=== PATIENT | female | born 1970 | race Caucasian/White ===

== ENCOUNTER 2020-08-22 11:28 | Outpatient (REF) | payer OTHER, SELFPAY ==
--- NOTE | 2020-08-22 | MM_ITS ---
EXAMINATION: MM SCREENING DIGITAL BREAST TOMOSYNTHESIS, BILATERAL CLINICAL INFORMATION: Screening. Asymptomatic. Benign right breast biopsy 2012, fibroadenoma. The lifetime risk of breast cancer based on the Tyrer-Cuzick Model is 12%. COMPARISON: Mammography: 08/14/2019, 06/20/2018, 05/24/2017, 05/11/2016, 04/17/2015, 02/10/2014 TECHNIQUE: Digital breast tomosynthesis is performed in both the craniocaudal and mediolateral oblique views along with computer-aided detection (CAD). Synthesized 2D images are generated from the tomosynthesis. Additional left MLO view is provided. FINDINGS: There are scattered areas of fibroglandular density (ACR BI-RADS breast composition Category b). There is a stable bilobed mass right breast upper outer quadrant approximately 2.1 x 1.4 cm with central biopsy clip marker and associated benign coarse calcifications consistent with the known fibroadenoma. The right breast shows no interval mass or architectural abnormality or developing density. Neither breast shows abnormal calcifications. The axilla and skin contours are unremarkable. The left breast has focal nodular asymmetric density posterior 12:30 position, more conspicuous when compared with prior exams. Patient will be recalled in order to further assess for possible developing density. MM/MM tomosynthesis screening BI IMPRESSION: 1. Left: Focal nodular asymmetric density posterior 12:30 o'clock position. 2. Right: No significant changes from prior studies. ASSESSMENT: BI-RADS 0: Incomplete - Need Additional Imaging Evaluation RECOMMENDATION: 1. Additional views of the left breast (3-D spot CC, 3-D spot ML). 2. Targeted ultrasound if warranted after review of the additional views. 3. Radiology department staff will contact the patient for additional imaging. This patient's information was entered into a reminder system with a target due date for their next mammogram.
== END 2020-08-22 11:29 | disposition home or self-care (01) ==
LOC: HO.MAMMO 11:28
PROVIDERS: PCP Internal Medicine; Visit Provider Internal Medicine
DX: Z12.31 Encounter for screening mammogram for malignant neoplasm of breast (principal)
CPT/HCPCS: 77063; 77067

== ENCOUNTER 2020-09-20 14:50 | Outpatient (REF) | payer OTHER, SELFPAY ==
--- NOTE | 2020-09-20 | MM_ITS ---
EXAMINATION: MM DIAGNOSTIC DIGITAL BREAST TOMOSYNTHESIS, LEFT US DIAGNOSTIC ULTRASOUND BREAST, LEFT CLINICAL INFORMATION: Recall from screening for subtle focal nodular asymmetric density posterior 12:30 o'clock position, more conspicuous when compared with prior exam. Assess for developing density. COMPARISON: Mammography: 08/22/2020, 08/14/2019, 08/20/2018 TECHNIQUE: Digital breast tomosynthesis is performed. 2D images are generated from the tomosynthesis. The following views are obtained: Spot CC, spot ML x2. Ultrasound left breast is targeted to the upper breast. Grayscale imaging and color Doppler are performed. Additional imaging axilla are also included. FINDINGS: There are scattered areas of fibroglandular density (ACR BI-RADS breast composition Category b). The additional views confirm subtle oval density with ill-defined margins. No spiculation or associated calcification. Ultrasound demonstrates a smooth macrolobulated nodule 12:00 position 7 cm from nipple measuring approximately 0.7 x 0.4 cm. There is no increased or decreased through transmission of sound. No associated color flow. Additional imaging left axilla unremarkable. Results are discussed with the patient at time of visit. Ultrasound appearance is reassuring, possibly benign lesions such as fibroadenoma or penetration. However, ultrasound-guided core sampling is recommended to confirm benignity and exclude malignancy. MM/MM tomosynthesis diagnostic BI IMPRESSION: Focal nodular asymmetric density posterior 12:00 left breast under 1 cm with smooth ultrasound correlate. ASSESSMENT: BI-RADS 4: Suspicious (subcategory 4A: Low suspicion for malignancy) RECOMMENDATION: Ultrasound-guided core biopsy This patient's information was entered into a reminder system with a target due date for their next mammogram.
== END 2020-09-20 14:51 | disposition home or self-care (01) ==
LOC: HO.MAMMO 14:50
PROVIDERS: PCP Internal Medicine; Visit Provider Internal Medicine
DX: R92.2 Inconclusive mammogram (principal)
CPT/HCPCS: 76642; 77062; 77066

== ENCOUNTER 2020-09-29 09:50 | Outpatient (REF) | payer OTHER, SELFPAY ==
--- NOTE | ~2020-09-29 | MM_ITS ---
EXAMINATION: DIGITAL POST-PROCEDURE MAMMOGRAPHY: Breast density: The tissue contains scattered areas of fibroglandular density. BI-RADS version 5, category B. There are no new mammographic findings demonstrated. The postprocedure 2-view direct digital mammogram reveals satisfactory positioning of the biopsy clip. The patient tolerated the procedure well and, after assuring adequate hemostasis, was discharged in good condition after reviewing postbiopsy breast care instructions. Final pathology results are pending. MM/MM diagnostic mammo unilat LT IMPRESSION: 1. No immediate complication from ultrasound-guided percutaneous biopsy left breast. 2. Ultrasound was used to localize and guide marker clip placement. 3. The 2-view direct digital postprocedure mammogram reveals satisfactory positioning of the biopsy clip. 4. Final pathology results are pending. A separate report with final recommendations will be issued once these results are made available.
--- NOTE | ~2020-09-29 | US_ITS ---
PROCEDURE: US GUIDED BREAST BIOPSY, LEFT CLINICAL INFORMATION: Solid lesion 12:00 position 7 cm from the nipple. COMPARISON: September 20, 2020 and studies dating back to May 24, 2017 PROCEDURAL DETAILS: The details of the procedure, as well as the risks, benefits, and alternatives to the procedure were explained to the patient in detail and all of her questions were answered, after which written informed consent was obtained. Site and side were confirmed. Prior to the procedure, sonography revealed a hypoechoic circumscribed lesion at the 12:00 position 7 cm from the nipple.. A time-out was performed, the lesion intended for biopsy was targeted, and the skin of the left breast was then prepped and draped in the usual sterile fashion. Using sonographic guidance, sterile technique, and 1% lidocaine without epinephrine for local anesthesia, multiple automated core biopsies were obtained through the targeted area with a 14G spring loaded Achieve core biopsy device. There was real-time confirmation of appropriate needle passage. Sampling was documented. At the completion of tissue sampling, a single coil-shaped metallic clip was deposited at the biopsy site. There was no evidence of immediate complication. SPECIMEN: An appropriate sample was obtained. DIGITAL POST-PROCEDURE MAMMOGRAPHY: Breast density: The tissue contains scattered areas of fibroglandular density. BI-RADS version 5, category B. There are no new mammographic findings demonstrated. The postprocedure 2-view direct digital mammogram reveals satisfactory positioning of the biopsy clip. The patient tolerated the procedure well and, after assuring adequate hemostasis, was discharged in good condition after reviewing postbiopsy breast care instructions. Final pathology results are pending. US/US breast ndl core biopsy LT IMPRESSION: 1. No immediate complication from ultrasound-guided percutaneous biopsy left breast. 2. Ultrasound was used to localize and guide marker clip placement. 3. The 2-view direct digital postprocedure mammogram reveals satisfactory positioning of the biopsy clip. 4. Final pathology results are pending. A separate report with final recommendations will be issued once these results are made available.
== END 2020-09-29 09:51 | disposition home or self-care (01) ==
LOC: HO.MAMMO 09:50
PROVIDERS: PCP Internal Medicine; Visit Provider Surgery
DX: R92.8 Other abnormal and inconclusive findings on diagnostic imaging of breast (principal)
CPT/HCPCS: 19083; 77065; 88305; A4648

== ENCOUNTER → 2020-10-04 11:24 | Outpatient (BNVA) | payer OTHER, SELFPAY | PROVIDERS: PCP Internal Medicine; Visit Provider Surgery ==

== ENCOUNTER 2020-12-01 17:14 | Outpatient (REF) | payer OTHER, SELFPAY ==
[2020-12-01 18:17] LABS: MANUAL DIFF FLAG NO
[2020-12-01 18:23] LABS: Basophils Absolute Auto 0.1 X10*3/uL (0.0-0.2); Basophils Percent Auto 0.8 % (0-2); Eosinophils Absolute Auto 0.1 X10*3/uL (0.0-0.4); Eosinophils Percent Auto 1.4 % (0-4); Hemoglobin 13.9 g/dl (12.0-16.0); Imm Gran Abs Auto 0.01 X10*3/uL (0.00-0.03); Imm Gran Pct Auto 0.1 % (0.0-0.4); Lymphocytes Absolute Auto 2.7 X10*3/uL (1.2-4.9); Lymphocytes Percent Auto 36.4 % (20-40); Mean Corpuscular HGB Conc 33.1 g/dl (31.0-35.0); Mean Corpuscular Hemoglobin 29.4 pg (27.0-33.0); Mean Corpuscular Volume 88.8 fL (80-98); Mean Platelet Volume 11.1 fL (9.4-12.3); Monocytes Absolute Auto 0.7 X10*3/uL (0.1-1.2); Monocytes Percent Auto 9.5 % (2-11); Neutrophils Absolute Auto 3.8 X10*3/uL (2.0-8.3); Neutrophils Percent Auto 51.8 % (45-73); Platelet Count 300 X10*3/uL (160-400); Red Blood Count 4.73 X10*6/uL (4.20-5.50); Red Cell Distribution Width 12.8 % (11.0-16.0); White Blood Count 7.3 X10*3/uL (4.8-10.8)
[2020-12-01 18:49] LABS: Alanine Aminotransferase 9 U/L (0-31); Alkaline Phosphatase 53 U/L (39-117); Anion Gap 14 (12-20); Aspartate Amino Transferase 13 U/L (5-31); Bilirubin Total 0.7 mg/dL (0.0-1.0); Blood Urea Nitrogen 10 mg/dL (9-16); Calcium 9.1 mg/dL (8.4-10.2); Carbon Dioxide 23 mmol/L (22-29); Chloride 105 mmol/L (96-108); Cholesterol 183 mg/dL; Estimated Glomerular Filt Rate > 60; Glucose Random 90 mg/dL (60-115); Potassium 4.1 mmol/L (3.3-5.1); Sodium 138 mmol/L (135-145); Total Protein 6.6 g/dL (6.5-8.0)
[2020-12-01 19:05] LABS: Free T4 (Free Thyroxine) 0.93 ng/dL (0.71-1.85); Thyroid Stimulating Hormone 1.32 uIU/mL (0.32-4.0)
== END 2020-12-01 17:15 | disposition home or self-care (01) ==
LOC: HO.LAB 17:14
PROVIDERS: PCP Internal Medicine; Visit Provider Internal Medicine
DX: R53.83 Other fatigue (principal); G47.00 Insomnia, unspecified; R51.9 Headache, unspecified; K21.9 Gastro-esophageal reflux disease without esophagitis
CPT/HCPCS: 36415; 80053; 82465; 84439; 84443; 85025

== ENCOUNTER → 2021-03-06 08:00 | Outpatient (BNVA) | payer OTHER, SELFPAY | PROVIDERS: PCP Internal Medicine; Visit Provider Advanced Practice Midwife ==

== ENCOUNTER 2021-10-13 07:31 | Outpatient (REF) | payer OTHER, SELFPAY ==
--- NOTE | ~2021-10-13 | MM_ITS ---
EXAMINATION: MM SCREENING DIGITAL BREAST TOMOSYNTHESIS, BILATERAL CLINICAL INFORMATION: Screening. Asymptomatic. Benign ultrasound-guided core biopsy left breast 09/29/2020 (fibroadenoma). Prior benign right breast biopsy 2011 (fibroadenoma). The lifetime risk of breast cancer based on the Tyrer-Cuzick Model is 8%. COMPARISON: Mammography: 09/29/2020, 09/20/2020, 08/22/2020, 08/14/2019, 06/20/2018; targeted left breast ultrasound 09/20/2020, ultrasound-guided core biopsy left breast 09/29/2020 TECHNIQUE: Digital breast tomosynthesis is performed in both the craniocaudal and mediolateral oblique views along with computer-aided detection (CAD). Synthesized 2D images are generated from the tomosynthesis. FINDINGS: There are scattered areas of fibroglandular density (ACR BI-RADS breast composition Category b). Parenchymal pattern is similar to prior exams. Right breast has macrolobulated mass with biopsy clip marker and coarse calcifications consistent with the known fibroadenoma anterior upper outer quadrant. Left breast has open coil biopsy clip marker overlying small nodule posterior 12:00 position also consistent with known fibroadenoma. Neither breast shows interval mass or developing density or architectural abnormality. There are no abnormal calcifications. The axilla and skin contours are unremarkable. No significant changes. MM/MM tomosynthesis screening BI IMPRESSION: No mammographic evidence of malignancy. ASSESSMENT: BI-RADS 2: Benign RECOMMENDATION: Routine annual mammography screening. This patient's information was entered into a reminder system with a target due date for their next mammogram.
== END 2021-10-13 07:32 | disposition home or self-care (01) ==
LOC: HO.MAMMO 07:31
PROVIDERS: PCP Internal Medicine; Visit Provider Internal Medicine
DX: Z12.31 Encounter for screening mammogram for malignant neoplasm of breast (principal)
CPT/HCPCS: 77063; 77067

== ENCOUNTER 2021-10-17 16:21 | Outpatient (REF) | payer OTHER, SELFPAY ==
[2021-10-17 17:12] LABS: MANUAL DIFF FLAG NO
[2021-10-17 17:26] LABS: Basophils Absolute Auto 0.1 X10*3/uL (0.0-0.2); Basophils Percent Auto 0.9 % (0-2); Eosinophils Absolute Auto 0.2 X10*3/uL (0.0-0.4); Eosinophils Percent Auto 2.8 % (0-4); Hematocrit 42.5 % (37.0-47.0); Imm Gran Abs Auto 0.02 X10*3/uL (0.00-0.03); Imm Gran Pct Auto 0.3 % (0.0-0.4); Lymphocytes Absolute Auto 2.4 X10*3/uL (1.2-4.9); Lymphocytes Percent Auto 35.6 % (20-40); Mean Corpuscular HGB Conc 32.9 g/dl (31.0-35.0); Mean Corpuscular Hemoglobin 29.5 pg (27.0-33.0); Mean Corpuscular Volume 89.7 fL (80.0-98.0); Mean Platelet Volume 10.6 fL (9.4-12.3); Monocytes Absolute Auto 0.7 X10*3/uL (0.1-1.2); Monocytes Percent Auto 9.9 % (2-11); Neutrophils Absolute Auto 3.4 x10*3/uL (2.0-8.3); Neutrophils Percent Auto 50.5 % (45-73); Platelet Count 275 X10*3/uL (160-400); Red Blood Count 4.74 X10*6/uL (4.20-5.50); Red Cell Distribution Width 13.1 % (11.0-16.0); White Blood Count 6.7 X10*3/uL (4.8-10.8)
[2021-10-17 17:40] LABS: Alanine Aminotransferase 6 U/L (0-31); Alkaline Phosphatase 52 U/L (39-117); Anion Gap 14 (12-20); Aspartate Amino Transferase 11 U/L (5-31); Bilirubin Total 0.4 mg/dL (0.0-1.0); Blood Urea Nitrogen 9 mg/dL (9-16); Calcium 8.8 mg/dL (8.4-10.2); Carbon Dioxide 23 mmol/L (22-29); Chloride 105 mmol/L (96-108); Estimated Glomerular Filt Rate > 60; Glucose Random 94 mg/dL (60-115); Potassium 4.5 mmol/L (3.3-5.1); Sodium 137 mmol/L (135-145); Total Protein 6.6 g/dL (6.5-8.0)
[2021-10-17 18:04] LABS: Free T4 (Free Thyroxine) 0.93 ng/dL (0.71-1.85); Thyroid Stimulating Hormone 1.51 uIU/mL (0.32-4.0); Vitamin D 25-OH Total 32.1 ng/mL (>30)
[2021-10-17 18:10] LABS: Vitamin B12 403 pg/mL (200-900)
[2021-10-18 10:06] LABS: Thyroid Peroxidase Antibodies <1 IU/mL (<9)
== END 2021-10-17 16:22 | disposition home or self-care (01) ==
LOC: HO.LAB 16:21
PROVIDERS: PCP Internal Medicine; Visit Provider Internal Medicine
DX: R53.83 Other fatigue (principal); K21.9 Gastro-esophageal reflux disease without esophagitis; R63.5 Abnormal weight gain; E01.0 Iodine-deficiency related diffuse (endemic) goiter
CPT/HCPCS: 36415; 80053; 82306; 82607; 84439; 84443; 85025; 86376

== ENCOUNTER 2021-10-29 13:47 | Outpatient (REF) | payer OTHER, SELFPAY ==
--- NOTE | ~2021-10-29 | US_ITS ---
EXAMINATION: US THYROID CLINICAL INFORMATION: Enlarged thyroid COMPARISON: None TECHNIQUE: Linear transducer grayscale and color Doppler examination with attention to the region of the thyroid. FINDINGS: SIZE: Measurements of the thyroid lobes and nodules are given in sagittal, anteroposterior and transverse dimensions respectively. Right Thyroid Lobe: 5.3 x 1.9 x 1.9 cm, volume 10.0 mL. Parenchyma: The gland echotexture is heterogeneous. Thyroid vascularity is increased. Left Thyroid Lobe: 5.1 x 1.6 x 1.6 cm, volume 6.8 mL. Parenchyma: The gland echotexture is heterogeneous. Thyroid vascularity is increased. Isthmus: 0.3 cm in maximum AP dimension. Estimated total number of nodules greater than or equal to 1 cm: 3. Vp Product nodules are described as follows: 1. Location: Right upper. Size: 2.9 x 1.7 x 1.6 cm, volume 4.17 mL. Nodule characteristics: Composition: Solid/almost completely solid (2). Echogenicity: Hypoechoic (2). Shape: Taller than wide (3). Margins: Lobulated (2). Echogenic Foci: None (0). ACR TI-RADS total points: 9 ACR TI-RADS category: 5 2. Location: Left upper. Size: 1.6 x 1.0 x 1.2 cm, volume 1.02 mL. Nodule characteristics: Composition: Solid (2). Echogenicity: Isoechoic (1). Shape: Not taller than wide (0). Margins: Irregular (2). Echogenic Foci: Punctate echogenic foci (3). ACR TI-RADS total points: 8 ACR TI-RADS category: 5 3. Location: Left lower pole. Size: 2.2 x 1.2 x 1.9 cm, volume 2.70 mL. Nodule characteristics: Composition: Mixed cystic and solid (1). Echogenicity: Cannot be determined (1). Shape: Not taller than wide (0). Margins: Extrathyroidal extension (3). Echogenic Foci: None (0). ACR TI-RADS total points: 5 ACR TI-RADS category: 4 4. Location: Right lower pole. Size: 0.6 x 0.4 x 0.5 cm, volume 0.05 mL. Nodule characteristics: Composition: Solid (2). Echogenicity: Hypoechoic (2). Shape: Not taller than wide (0). Margins: Smooth (0). Echogenic Foci: None (0). ACR TI-RADS total points: 4 ACR TI-RADS category: 4 NODES: No lymphadenopathy is seen in the tissue surrounding the thyroid gland. US/US thyroid IMPRESSION: Hypervascular heterogeneous thyroid gland. Slightly enlarged right lobe. Bilateral thyroid nodules. Nodules in the upper pole of the right lobe and upper and lower pole left lobe meet TI RADS criteria for fine-needle aspiration. ACR TI-RADS RECOMMENDATION REFERENCE: Ultrasound-guided fine-needle aspiration, followup ultrasound, no further follow up. * TR1 (0 point) and TR 2 (2 points): No FNA or follow up * TR3 (3 points): FNA if more than or equal to 2.5 cm in maximum dimension, followup ultrasound in 1, 3 and 5 years if 1.5 to 2.4 cm in maximum dimension. * TR4 (4-6 points): FNA if more than or equal to 1.5 cm in maximum dimension, followup ultrasound in 1, 2, 3 and 5 years if 1 to 1.4 cm in maximum dimension. * TR5 (more than or equal to 7 points): FNA if more than or equal to 1 cm in maximum dimension, followup ultrasound every year for 5 years if 0.5 to 0.9 cm in maximum dimension. * TR3, TR4 or TR5 nodules that are below the size threshold for follow up receive no follow up.
== END 2021-10-29 13:48 | disposition home or self-care (01) ==
LOC: HO.HMGCX 13:47
PROVIDERS: PCP Internal Medicine; Visit Provider Internal Medicine
DX: E04.9 Nontoxic goiter, unspecified (principal)
CPT/HCPCS: 76536

== ENCOUNTER 2022-06-25 09:02 | Outpatient (REF) | payer OTHER, SELFPAY | END 2022-06-25 09:03 | disposition home or self-care (01) | LOC: HO.LNP 09:02 | PROVIDERS: Visit Provider Advanced Practice Midwife | DX: Z13.89 Encounter for screening for other disorder (principal) ==

== ENCOUNTER 2022-06-25 09:23 | Outpatient (REF) | payer OTHER, SELFPAY ==
[2022-06-26 07:07] LABS: Follicle Stimulating Hormone 61.4 mIU/mL
[2022-06-26 13:09] LABS: BV Int Neg Control Negative (Negative); BV Int Pos Control Positive (Positive)
== END 2022-06-25 09:24 | disposition home or self-care (01) ==
LOC: HO.LAB 09:23
PROVIDERS: PCP Internal Medicine; Visit Provider Advanced Practice Midwife
DX: Z01.419 Encounter for gynecological examination (general) (routine) without abnormal findings (principal); R23.2 Flushing
CPT/HCPCS: 36415; 83001; 87480; 87510; 87660

== ENCOUNTER 2022-07-12 15:22 | Outpatient (REF) | payer OTHER, SELFPAY ==
--- NOTE | ~2022-07-12 | US_ITS ---
. EXAMINATION:US pelvic and transvaginal CLINICAL INFORMATION: Reason for Exam N92.6 - Irregular menstruation, unspecified COMPARISON: No priors available. LMP: 06/25/2022 FINDINGS: UTERUS: The uterus is anteverted. Size: 7.6 x 4.2 x 4.5 cm. Uterine mass: There is no uterine mass. Cervix: Grossly unremarkable. Endometrium: No ultrasound evidence of endometrial lesion. endometrial thickness measures 0.[address] properly positioned. ADNEXA: Normal Right ovary: Not visualized might have been obscured by bowel gas. Left ovary: Mildly complex cyst in the left ovary measure up to 4 cm, some internal echo probably debris, adjacent hypoechoic probably hemorrhagic cyst 1.3 x 1.2 x 0.9 cm. Doppler exam: Normal Doppler flow in the left ovary. FREE FLUID: Trace amount of free fluid. OTHER FINDINGS: None US/US pelvic and transvaginal IMPRESSION: 1. IUD in place properly positioned. 2. There are 2 complex probably hemorrhagic cysts in the left ovary the largest measure up to 4 cm. Follow-up recommended. Recommend follow-up ultrasound in 6 months. 3. Right ovary not visualized might have been obscured by bowel gas.
== END 2022-07-12 15:23 | disposition home or self-care (01) ==
LOC: HO.HMGCX 15:22
PROVIDERS: PCP Internal Medicine; Visit Provider Advanced Practice Midwife
DX: Z30.431 Encounter for routine checking of intrauterine contraceptive device (principal); N92.6 Irregular menstruation, unspecified
CPT/HCPCS: 76830; 76856

== ENCOUNTER 2022-07-15 07:59 | Outpatient (REF) | payer OTHER, SELFPAY ==
[2022-07-15 09:58] LABS: Hematocrit 42.6 % (37.0-47.0); Mean Corpuscular HGB Conc 32.9 g/dl (31.0-35.0); Mean Corpuscular Hemoglobin 29.7 pg (27.0-33.0); Mean Corpuscular Volume 90.3 fL (80.0-98.0); Mean Platelet Volume 10.7 fL (9.4-12.3); Platelet Count 298 X10*3/uL (160-400); Red Blood Count 4.72 X10*6/uL (4.20-5.50); Red Cell Distribution Width 12.9 % (11.0-16.0); White Blood Count 5.7 X10*3/uL (4.8-10.8)
[2022-07-15 10:31] LABS: Thyroid Stimulating Hormone 0.85 uIU/mL (0.32-4.0)
[2022-07-17 10:12] LABS: CA-125 8 U/mL (<35)
== END 2022-07-15 08:00 | disposition home or self-care (01) ==
LOC: HO.LAB 07:59
PROVIDERS: PCP Internal Medicine; Visit Provider Advanced Practice Midwife
DX: Z30.432 Encounter for removal of intrauterine contraceptive device (principal); N92.1 Excessive and frequent menstruation with irregular cycle; N83.299 Other ovarian cyst, unspecified side
CPT/HCPCS: 36415; 58301; 84443; 85027; 86304

== ENCOUNTER 2022-07-16 08:56 | Outpatient (REF) | payer OTHER, SELFPAY ==
[2022-07-16 10:46] LABS: C Reactive Protein 0.05 mg/dL (< or = 0.50)
[2022-07-16 12:53] LABS: Vitamin B12 369 pg/mL (200-900)
[2022-07-18 16:57] LABS: Immunoglobulin A 239 mg/dL (47-310)
[2022-07-19 13:01] LABS: Transglutaminase IgA <1.0 U/mL
== END 2022-07-16 08:57 | disposition home or self-care (01) ==
LOC: HO.LAB 08:56
PROVIDERS: PCP Internal Medicine; Visit Provider Internal Medicine
DX: Z30.432 Encounter for removal of intrauterine contraceptive device (principal); N93.9 Abnormal uterine and vaginal bleeding, unspecified; R19.7 Diarrhea, unspecified; R14.0 Abdominal distension (gaseous)
CPT/HCPCS: 36415; 58301; 81025; 82306; 82607; 82746; 82784; 86140; 86364

== ENCOUNTER 2022-07-22 09:03 | Outpatient (REF) | payer OTHER, SELFPAY ==
[2022-07-30 22:04] LABS: Calprotectin, Fecal 6 mcg/g
== END 2022-07-22 09:04 | disposition home or self-care (01) ==
LOC: HO.LNP 09:03
PROVIDERS: Visit Provider Internal Medicine
DX: R14.0 Abdominal distension (gaseous) (principal)
CPT/HCPCS: 83993; 87338

== ENCOUNTER 2022-07-30 14:31 | Outpatient (REF) | payer OTHER, SELFPAY ==
[2022-07-30 15:30] LABS: Influenza A PCR NEGATIVE (Negative); Influenza B PCR NEGATIVE (Negative); Resp Syncy Virus RNA Qual PCR NEGATIVE (Negative); SARS COV2 PCR INHOUSE POSITIVE (Negative)
== END 2022-07-30 14:32 | disposition home or self-care (01) ==
LOC: HO.LNP 14:31
PROVIDERS: Visit Provider Nurse Practitioner Family
DX: Z20.822 Contact with and (suspected) exposure to COVID-19 (principal); R09.89 Other specified symptoms and signs involving the circulatory and respiratory systems
CPT/HCPCS: 0241U

== ENCOUNTER 2022-08-07 09:24 | Outpatient (REF) | payer OTHER, SELFPAY | END 2022-08-07 09:25 | disposition home or self-care (01) | LOC: HO.LNP 09:24 | PROVIDERS: PCP Internal Medicine; Visit Provider Obstetrics & Gynecology | DX: Z32.02 Encounter for pregnancy test, result negative (principal); N93.9 Abnormal uterine and vaginal bleeding, unspecified | CPT/HCPCS: 58100; 81025; 88305 ==

== ENCOUNTER 2022-08-23 10:47 | Outpatient (REF) | payer OTHER, SELFPAY ==
--- NOTE | ~2022-08-23 | US_ITS ---
EXAMINATION: US PELVIS CLINICAL INFORMATION: Ovarian cyst. COMPARISON: Prior ultrasound just over one month ago on 07/12/2022. TECHNIQUE: Ultrasound of the pelvis is performed using both transabdominal and transvaginal transducers along with Doppler. Transvaginal imaging is performed due to inadequate visualization transabdominally. FINDINGS: UTERUS: The uterus is retroverted and measures 7.4 x 4.0 x 4.3 cm. The previously seen IUD which had been in the cervix has been removed. An IUD is not present at this time. The double wall endometrial thickness is 0.8 mm. The uterus is smooth in contour and has normal myometrial echogenicity. No visible fibroid. ADNEXA: Both ovaries are visualized. There is normal color flow to the adnexa. There is no ovarian torsion. There is no pelvic ascites or fluid collection. Right ovary measures 2.0 x 1.4 x 1.4 cm for a volume of 2.1 mL. Left ovary measures 3.6 x 3.0 x 3.6 cm for a volume of 20.4 mL which contains a 3.3 x 2.6 x 3.0 cm cyst with either a septation or a daughter cyst. Since the prior study, left ovarian cyst has decreased in size from the previous measurement of maximal dimension of 4.2 cm. US/US pelvic and transvaginal IMPRESSION: Left ovarian cyst has decreased in size. An additional follow up in 6 months is recommended.
== END 2022-08-23 10:48 | disposition home or self-care (01) ==
LOC: HO.US 10:47
PROVIDERS: Visit Provider Advanced Practice Midwife
DX: N83.299 Other ovarian cyst, unspecified side (principal)
CPT/HCPCS: 76830; 76856

== ENCOUNTER → 2022-08-28 08:28 | Outpatient (BNVA) | payer OTHER, SELFPAY | PROVIDERS: PCP Internal Medicine; Visit Provider Obstetrics & Gynecology | DX: N84.0 Polyp of corpus uteri (principal) ==

== ENCOUNTER 2022-09-04 08:58 | Outpatient (REF) | payer OTHER, SELFPAY ==
[2022-09-06 10:18] LABS: CA-125 7 U/mL (<35)
== END 2022-09-04 08:59 | disposition home or self-care (01) ==
LOC: HO.LAB 08:58
PROVIDERS: PCP Internal Medicine; Visit Provider Obstetrics & Gynecology
DX: N83.299 Other ovarian cyst, unspecified side (principal)
CPT/HCPCS: 36415; 86304

== ENCOUNTER 2022-10-19 07:36 | Outpatient (REF) | payer OTHER, SELFPAY ==
--- NOTE | ~2022-10-19 | MM_ITS ---
EXAMINATION: MM SCREENING DIGITAL BREAST TOMOSYNTHESIS, BILATERAL CLINICAL INFORMATION: Screening. Asymptomatic. Benign left biopsy 2020 (fibroadenoma). Benign right breast biopsy 2011 (fibroadenoma). The lifetime risk of breast cancer based on the Tyrer-Cuzick Model is 9%. COMPARISON: Mammography: 10/13/2021, 09/29/2020, 09/20/2020, 08/22/2020, 08/14/2019, 06/20/2018 TECHNIQUE: Digital breast tomosynthesis is performed in both the craniocaudal and mediolateral oblique views along with computer-aided detection (CAD). Synthesized 2D images are generated from the tomosynthesis. FINDINGS: There are scattered areas of fibroglandular density (ACR BI-RADS breast composition Category b). Breast tissue composition borders on heterogeneously dense. There is no significant mass or architectural abnormality. There is a dominant smooth circumscribed mass with calcification and biopsy clip marker corresponding to known fibroadenoma anterior upper outer right breast. Smaller fibroadenoma posterior 12:00 left breast with biopsy clip marker again noted. No abnormal calcifications. The axilla and skin contours are unremarkable. MM/MM tomosynthesis screening BI IMPRESSION: No significant changes from prior studies. ASSESSMENT: BI-RADS 2: Benign RECOMMENDATION: Routine annual mammography screening. This patient's information was entered into a reminder system with a target due date for their next mammogram.
== END 2022-10-19 07:37 | disposition home or self-care (01) ==
LOC: HO.MAMMO 07:36
PROVIDERS: Visit Provider Internal Medicine
DX: Z12.31 Encounter for screening mammogram for malignant neoplasm of breast (principal)
CPT/HCPCS: 77063; 77067

== ENCOUNTER 2022-11-04 15:19 | Outpatient (REF) | payer OTHER, SELFPAY ==
--- NOTE | ~2022-11-04 | US_ITS ---
EXAMINATION: US PELVIS CLINICAL INFORMATION: Ovarian cyst. LMP 10/29/2022. COMPARISON: Pelvic ultrasound 08/23/2022. TECHNIQUE: Ultrasound of the pelvis is performed using both transabdominal and transvaginal transducers along with Doppler. Transvaginal imaging is performed due to inadequate visualization transabdominally. FINDINGS: The uterus is retroverted measuring 6.7 x 3.4 x 4.2 cm. No focal uterine lesion. The endometrium measures 0.3 cm in thickness. The right ovary measures 1.7 x 2 x 1.5 cm (2.6 mL) disease. The left ovary measures 2.6 x 1.5 x 2 cm (4 mL). In the right ovary, there is a 1.3 x 1 x 1.1 cm complicated cyst with heterogeneous and lacelike debris but no definite associated vascularity, unsure if this correlates with one of the previously described complex cysts on the ultrasound from 07/12/2022, however is decreased in size. There is preserved flow to both ovaries on color Doppler at the moment of this examination. Small amount of free fluid in the cul-de-sac, likely physiologic. US/US pelvic and transvaginal IMPRESSION: There is a 1.3 cm complicated cyst in the left ovary with lacelike debris and no mural nodules, possibly related with a hemorrhagic cyst. It is uncertain if this represents one of the previously described complex cysts on the ultrasound from 07/12/2022, or most likely interval developing of a new hemorrhagic cyst. Recommend a follow-up ultrasound in 6-12 weeks to reassess.
== END 2022-11-04 15:20 | disposition home or self-care (01) ==
LOC: HO.HMGCX 15:19
PROVIDERS: PCP Internal Medicine; Visit Provider Obstetrics & Gynecology
DX: N83.299 Other ovarian cyst, unspecified side (principal)
CPT/HCPCS: 76830; 76856

== ENCOUNTER → 2022-11-13 15:38 | Outpatient (BNVA) | payer OTHER, SELFPAY | PROVIDERS: PCP Internal Medicine; Visit Provider Obstetrics & Gynecology | DX: Z13.89 Encounter for screening for other disorder (principal) ==

== ENCOUNTER 2022-12-03 15:45 | Outpatient (REF) | payer OTHER, SELFPAY ==
--- NOTE | ~2022-12-03 | MR_ITS ---
EXAMINATION: MRI PELVIS WITH AND WITHOUT CONTRAST CLINICAL INFORMATION: Reason for Exam N83.299 - Other ovarian cyst, unspecified side COMPARISON: Pelvic ultrasound 11/04/2022 TECHNIQUE: Multiple routine MRI sequences through the pelvis were obtained before and after the uneventful administration of 10 mL of Gadavist gadolinium-based IV contrast. FINDINGS: UTERUS: Retroverted uterus has a normal configuration. Endometrium is uniform and measures 0.4 cm in thickness. Junctional zone is normal in signal and thickness. No focal uterine mass seen. CERVIX: Unremarkable. VAGINA: Unremarkable. OVARIES: The ovaries are normal in size, 4:6 and 4:13. Simple unilocular 1.4 cm left ovarian cyst. KIDNEYS: Two normally positioned kidneys are seen. No hydronephrosis. BLADDER: Unremarkable. PELVIC FREE FLUID: Trace simple physiologic pelvic free fluid. LYMPH NODES: No pathologically enlarged lymph nodes. OSSEOUS STRUCTURES: No acute or suspicious osseous abnormalities. OTHER: Colonic diverticulosis without evidence of diverticulitis. MR/MR pelvis wo/w con IMPRESSION: A 1.4 cm simple unilocular left ovarian cyst, almost certainly benign. No follow-up imaging recommended.
== END 2022-12-03 15:46 | disposition home or self-care (01) ==
LOC: HO.MRI 15:45
PROVIDERS: PCP Internal Medicine; Visit Provider Obstetrics & Gynecology
DX: N83.299 Other ovarian cyst, unspecified side (principal)
CPT/HCPCS: 72197; A9585

== ENCOUNTER 2022-12-26 15:02 | Outpatient (REF) | payer OTHER, SELFPAY ==
--- NOTE | ~2022-12-26 | XR_ITS ---
EXAMINATION: XR CHEST CLINICAL INFORMATION: Chest pain, cough COMPARISON: None available. TECHNIQUE: 2 views of the chest were obtained. FINDINGS: No significant abnormality is noted involving the heart, lungs, mediastinum, bony thorax or soft tissues. XR/XR chest 2V IMPRESSION: Unremarkable chest examination.
[2022-12-26 17:34] LABS: Influenza A PCR NEGATIVE (Negative); Influenza B PCR NEGATIVE (Negative); Resp Syncy Virus RNA Qual PCR NEGATIVE (Negative); SARS COV2 PCR INHOUSE NEGATIVE (Negative)
== END 2022-12-26 15:03 | disposition home or self-care (01) ==
LOC: HO.XRAY 15:02
PROVIDERS: Absent Provider Internal Medicine; PCP Internal Medicine; Visit Provider Obstetrics & Gynecology
DX: Z20.822 Contact with and (suspected) exposure to COVID-19 (principal); R05.9 Cough, unspecified; R53.83 Other fatigue; N83.299 Other ovarian cyst, unspecified side
CPT/HCPCS: 0241U; 71046

== ENCOUNTER → 2023-01-10 15:47 | Outpatient (BNVA) | payer OTHER, SELFPAY | PROVIDERS: PCP Internal Medicine; Visit Provider Internal Medicine ==

== ENCOUNTER 2023-04-10 08:40 | Day surgery (SDC) | payer OTHER, SELFPAY ==
[2023-04-08 08:50] VITALS: BMI 23.9
--- NOTE | 2023-04-09 09:21 | HO.ANESPROP2 ---
Documented by User: Rere Fuentes NP 04/09/23 09:21 HPI - Anesthesia Eval Consult details Narrative: 52yo F for Colonoscopy PMFSH Active Problems Active Problems: All Active Problems (Updated 08/28/22 @ 09:16 by Mark Ashley MD) Fibroadenoma of left breast (Acute) Encounter for annual routine gynecological examination (Acute) Hot flashes (Acute) Abdominal bloating (Acute) Alternating constipation and diarrhea (Acute) Encounter for colorectal cancer screening (Acute) Encounter for removal of intrauterine contraceptive device (IUD) (Acute) Abnormal uterine bleeding (Acute) URI (upper respiratory infection) (Acute) COVID (Acute) Endometrial polyp (Acute) Complex ovarian cyst (Acute) Past Medical History Medical History Diverticulosis Migraine with aura Thyroid nodule Family History Family History Father History of melanoma Heart disease Paternal Grandmother History of colon cancer, Onset Age: 90 Mother Emphysema of lung Surgical History Surgical History History of cholecystectomy (~09/2012) History of left breast biopsy Social History Social History Household Members: None Housing: House Alcohol intake: current Patient Tobacco Use Status: Never used Tobacco Are you DNR?: No Advance Directives: No Advance Directives Information Provided: Yes Nutrition Risks: No Nutritional Risk FDLMP: 03/05/23 service: No Current occupational status: employed 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 orientation: Straight/Heterosexual Gender identity: Female Meds Allergies Allergy/AdvReac Type Severity Reaction Status Date / Time Sulfa (Sulfonamide Allergy Intermediate hives Verified 04/10/23 09:23 Antibiotics) sulfamethoxazole Allergy Intermediate HIVES Verified 04/10/23 09:23 [From BACTRIM] trimethoprim [From BACTRIM] Allergy Intermediate HIVES Verified 04/10/23 09:23 erythromycin base Allergy Unknown Unknown Verified 04/10/23 09:23 Seasonal Allergies Allergy Unknown Unknown Verified 04/10/23 09:23 codeine AdvReac Severe severe GI Verified 04/10/23 09:23 upset oxycodone [Percocet] AdvReac Intermediate Nausea Verified 04/10/23 09:23 Exam Exam Date and Time: April 09, 202321 Height,Weight and Vital Signs: Height 5 ft 3 in Weight 61.235 kg Assessment and Plan Assessment Anesthesia Assessment: Chart Reviewed Documented by User: Bacilio Cueto MD 04/10/23 09:54 PMFSH Past Medical History Medical History Diverticulosis Migraine with aura Thyroid nodule Family History Family History Father History of melanoma Heart disease Paternal Grandmother History of colon cancer, Onset Age: 90 Mother Emphysema of lung Family history of problems with anesthesia: No Surgical History Surgical History History of cholecystectomy (~09/2012) History of left breast biopsy History of Problems with Anesthesia: No Social History Social History Household Members: None Housing: House Alcohol intake: current Patient Tobacco Use Status: Never used Tobacco Are you DNR?: No Advance Directives: No Advance Directives Information Provided: Yes Nutrition Risks: No Nutritional Risk FDLMP: 03/05/23 service: No Current occupational status: employed 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 orientation: Straight/Heterosexual Gender identity: Female Meds Allergies Allergy/AdvReac Type Severity Reaction Status Date / Time Sulfa (Sulfonamide Allergy Intermediate hives Verified 04/10/23 09:23 Antibiotics) sulfamethoxazole Allergy Intermediate HIVES Verified 04/10/23 09:23 [From BACTRIM] trimethoprim [From BACTRIM] Allergy Intermediate HIVES Verified 04/10/23 09:23 erythromycin base Allergy Unknown Unknown Verified 04/10/23 09:23 Seasonal Allergies Allergy Unknown Unknown Verified 04/10/23 09:23 codeine AdvReac Severe severe GI Verified 04/10/23 09:23 upset oxycodone [Percocet] AdvReac Intermediate Nausea Verified 04/10/23 09:23 Exam Airway Mallampati Class: I TM Dist: >3cm Neck ROM: Full Loose/Missing/Broken Teeth: No Assessment and Plan Assessment Anesthesia Assessment: Anesthesia Plan Discussed Final Anesthetic Review Family History of Problems with Anesthesia: No History of Problems with Anesthesia: No NPO: Yes ASA Class: II Final Preanesthetic Review: No Changes in Pt Med Stat, Meds/Allgs Chart Reviewed, Consent Obtained/Reviewed and Anes Risks/Benef Reviewed Patient Risk: Low Anesthetic Plan Anesthetic Plan: MAC: Disposition: Standard PACU
[2023-04-10 09:07] LABS: UPreg QC Valid YES; Urine Pregnancy NEGATIVE (NEGATIVE)
[2023-04-10] MEDS: Lactated Ringers 1,000 ML 100 ML IVCONT (09:11)
[2023-04-10 09:19] VITALS: BP 120/72; PULSE 87; RESP 18; TEMP 36.6; O2SAT 100
--- NOTE | 2023-04-10 09:41 | MHC.SHP ---
Pre-Procedural Eval Section A Date of Service: 04/10/23 Section B Chief Complaint: screening Details of Present Illness: Medical History Diverticulosis Migraine with aura Thyroid nodule Surgical History History of cholecystectomy (~09/2012) History of left breast biopsy Present Medications: see Short Stay Collaborative assessment Allergies: Allergies Allergy/AdvReac Type Severity Reaction Status Date / Time Sulfa (Sulfonamide Allergy Intermediate hives Verified 04/10/23 09:23 Antibiotics) sulfamethoxazole Allergy Intermediate HIVES Verified 04/10/23 09:23 [From BACTRIM] trimethoprim [From BACTRIM] Allergy Intermediate HIVES Verified 04/10/23 09:23 erythromycin base Allergy Unknown Unknown Verified 04/10/23 09:23 Seasonal Allergies Allergy Unknown Unknown Verified 04/10/23 09:23 codeine AdvReac Severe severe GI Verified 04/10/23 09:23 upset oxycodone [Percocet] AdvReac Intermediate Nausea Verified 04/10/23 09:23 Review of Systems Review of Systems Comment: 10 point ROS negative Exam Exam Comment: Gen appear: No acute distress HEENT: no icterus Chest: No overt resp distress Abd: soft, nontender, nondistended Psych: Stable affect, answering questions appropriately Neuro: A/Ox3 noted to move all extremities spontaneously Ext: no peripheral edema Plan Diagnosis/Plan: Unchanged I have reviewed the history and physical and performed a pertinent physical examination on my patient. No changes have occurred unless specified. Time Spent With Patient Time: Total time managing care of this patient today ____ minutes.
--- NOTE | 2023-04-10 09:49 | P.OP_ITS ---
Operative Note Operative Note Date of Service: 04/10/23 Narrative: Procedure: Colonoscopy Indication: Screening Endoscopist: Anne De Anda MD Anesthesia Provider: Dr Bcailio Cueto Anesthesia type: MAC Instrument: Olympus [id number] Consent: Indication, risks vs benefits, and alternatives were discussed with the patient who gave written informed consent to proceed. EKG, pulse, pulse oximetry and blood pressure were monitored throughout the procedure. Please see anesthesia flowsheet. Procedure: The patient was brought to the procedure room and placed in the left lateral decubitus position. IV medications were administered by the anesthesia provider in attendance. A digital rectal exam was performed which was abnormal due to finding of hemorrhoids. A distal attachment cap was affixed to the tip of the scope and the colonoscope was then inserted through the anus and advanced through the colon to the cecum at 75 cm,and terminal ileum. Mucosa was carefully examined under high definition white light as the instrument was slowly withdrawn in a retrograde panoramic fashion. Retroflexion was performed in rectum. The procedure was not difficult. There were no immediate obvious complications. The quality of the prep was BBPS: 3+3+3 = excellent Withdrawal time 10 minutes. Limitations: No limitations. Findings: Mucosa: Normal to cecum and terminal ileum. Protruding lesions: * 1 sessile polyp of size 2 mm in ascending colon. Cold snare polypectomy was performed. The polyp was completely removed and retrieved. * Large internal hemorrhoids without stigmata of recent bleeding. Excavated lesions: * Moderate to severe diverticulosis of whole colon with L>R colon. Impression: 1. Normal colon and terminal ileum mucosa 2. Total of 1 polyp removed from ascending colon. 3. External and internal hemorrhoids 4. Diverticulosis Recommendations: - Follow path results. - Repeat colonoscopy in 7-10 years if polyp is an adenoma or sessile serrated. - Increase fiber intake, avoid constipation
[2023-04-10 10:31] VITALS: BP 90/50; PULSE 78; RESP 16; TEMP 36.3; O2SAT 97
[2023-04-10 10:46] VITALS: BP 110/62; PULSE 74; RESP 18; TEMP 36.3; O2SAT 99
== END 2023-04-10 11:14 | disposition home or self-care (01) ==
PROVIDERS: Anesthesiology; PCP Internal Medicine; Visit Provider Internal Medicine
PROC: 0DJD8ZZ Inspection of Lower Intestinal Tract, Via Natural or Artificial Opening Endoscopic (ICD-10-PCS; CPT 45378; principal; 2023-04-10 10:20)
DX: Z12.11 Encounter for screening for malignant neoplasm of colon (principal); D12.2 Benign neoplasm of ascending colon; K57.30 Diverticulosis of large intestine without perforation or abscess without bleeding; K64.8 Other hemorrhoids; K64.4 Residual hemorrhoidal skin tags; R19.8 Other specified symptoms and signs involving the digestive system and abdomen; K58.9 Irritable bowel syndrome, unspecified; Z90.49 Acquired absence of other specified parts of digestive tract
CPT/HCPCS: 45385; 81025; 88305; J3010

== ENCOUNTER → 2023-04-10 08:40 | Outpatient (BNV) | payer OTHER, SELFPAY | PROVIDERS: PCP Internal Medicine; Visit Provider Internal Medicine | DX: Z12.11 Encounter for screening for malignant neoplasm of colon (principal); D12.2 Benign neoplasm of ascending colon; K64.8 Other hemorrhoids; K57.30 Diverticulosis of large intestine without perforation or abscess without bleeding | CPT/HCPCS: 45385 ==

== ENCOUNTER 2023-04-21 08:43 | Outpatient (AMB) | payer OTHER, SELFPAY ==
--- NOTE | 2023-04-21 08:43 | A.OFFVIS_ITS ---
Intake Intake Visit Reasons: S/p colon Intake Note: Ro presents as a follow up colonoscopy. CC: Has no concerns since her procedure - has the lactaid but has questions and would like to talk to you today about it. Electronics Scale Tester Required: No Allergies Sulfa (Sulfonamide Antibiotics) Allergy (Intermediate, Verified 04/21/23 08:44) hives sulfamethoxazole [From BACTRIM] Allergy (Intermediate, Verified 04/21/23 08:44) HIVES trimethoprim [From BACTRIM] Allergy (Intermediate, Verified 04/21/23 08:44) HIVES erythromycin base Allergy (Unknown, Verified 04/21/23 08:44) Unknown Seasonal Allergies Allergy (Unknown, Verified 04/21/23 08:44) Unknown codeine Adverse Reaction (Severe, Verified 04/21/23 08:44) severe GI upset oxycodone [Percocet] Adverse Reaction (Intermediate, Verified 04/21/23 08:44) Nausea HPI HPI Comments History of Present Illness Details This is a 52y.o F with PMH of IBS, cholecystectomy 2012 who is here for follow up of abd distention and diarrhea. 07/16/22: Reports having frequent BMs since her cholecystectomy. Has been managing by minimizing food triggers although has frequent indiscretion. Now for the past 3 months has been experiencing increased abdominal bloating and distention no matter what she eats. Bloating is to the point of discomfort. No nausea, vomiting, change in appetite or unintentional weight loss. Continues to have intermittent diarrhea but reports alternating constipation. No blood in stool. Has not had CRC screening yet. No fam hx of CRC or polyps in first degree relatives. Pat grandmother had CRC in her 90s. 01/10/23: Reports remarkable improvement in overall sense of abd discomfort and diarrhea after empiric rifaximin for possible SIBO. Now has and distention only with certain foods, kimo dairy. Has also identified other foods such as mashed potatoes however suspect could also be dairy related as it has butter in it. Labs reviewed and negative for nutritional deficiencies, normal fecal calpro, no H pylori, normal celiac serology. Colonoscopy to be scheduled. Colonoscopy 04/10/23: Mucosa: Normal to cecum and terminal ileum. Protruding lesions: * 1 sessile polyp of size 2 mm in ascending colon. Cold snare polypectomy was performed. The polyp was completely removed and retrieved. * Large internal hemorrhoids without stigmata of recent bleeding. Excavated lesions: * Moderate to severe diverticulosis of whole colon with L>R colon. Path: Colon, ascending, polypectomy:? Sessile serrated lesion/polyp; negative for cytologic dysplasia. 04/21/23: Reports no acute gastrointestinal issues at this time. Reviewed results of the colonoscopy. [facility] Medical History (Updated 04/21/23 @ 09:13 by Anne De Anda MD) Diverticulosis Migraine with aura Thyroid nodule Surgical History (Updated 04/21/23 @ 08:45 by ERIKA Nuno) History of cholecystectomy (~09/2012) History of left breast biopsy Hx of colonoscopy Family History Father History of melanoma Heart disease Paternal Grandmother History of colon cancer, Onset Age: 90 Mother Emphysema of lung Social History Household Members: None Housing: House Alcohol intake: current Patient Tobacco Use Status: Never used Tobacco service: No Current occupational status: employed 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 orientation: Straight/Heterosexual Gender identity: Female Female Reproductive History Menstrual Age of Menarche: 13 Review of Systems Const All systems reviewed & are unremarkable except as noted in HPI and below Physical Exam Vital Signs: Video visit: NAD, nontoxic nonicteric Speaking in full sentences No dysphasia or dysarthria Assessment & Plan Assessment & Plan (1) Personal history of colonic polyps: Code(s): Z86.010 - Personal history of colonic polyps (2) Diverticulosis: Code(s): K57.90 - Diverticulosis of intestine, part unspecified, without perforation or abscess without bleeding (3) Hemorrhoids: Code(s): K64.9 - Unspecified hemorrhoids Plan 1. SSL: Recommend repeat colo in 5 years. 2. Diverticulosis: Asymptomatic currently. - Recommend a healthy lifestyle involving low-moderate intake of red meat - High intake of dietary fiber (~20g/day). Can be supplemented with psyllium, methylcellulose, wheat dextrin. - Vigorous physical activity roughly 20 mins per day - Maintain normal BMI - Avoid smoking. Avoid NSAIDs. 3. Hemorrhoids: No bleeding or pain reported. Pt advised that avoiding constipation and adding fiber should help. No indication for surg referral at this time. To call us for any changes. Follow up PRN Coding Level of Care Code Est Pt Level 4 (78558) Diagnoses Personal history of colonic polyps Z86.010 Diverticulosis K57.90 Hemorrhoids K64.9
== END 2023-04-21 09:20 | disposition home or self-care (01) ==
LOC: HO.HGI 08:43
PROVIDERS: PCP Internal Medicine; Visit Provider Internal Medicine
DX: K57.90 Diverticulosis of intestine, part unspecified, without perforation or abscess without bleeding (principal); K64.9 Unspecified hemorrhoids; Z86.010 Personal history of colon polyps
CPT/HCPCS: 99214

== ENCOUNTER → 2023-04-21 08:43 | Outpatient (BNVA) | payer OTHER, SELFPAY | PROVIDERS: PCP Internal Medicine; Visit Provider Internal Medicine ==

== ENCOUNTER 2023-10-25 07:26 | Outpatient (REF) | payer OTHER, SELFPAY ==
--- NOTE | ~2023-10-25 | MM_ITS ---
EXAMINATION: MM SCREENING DIGITAL BREAST TOMOSYNTHESIS, BILATERAL CLINICAL INFORMATION: Screening. Asymptomatic. COMPARISON: Mammography: This study is compared with prior exams dating back to 2019. TECHNIQUE: Digital breast tomosynthesis is performed in both the craniocaudal and mediolateral oblique views along with computer-aided detection (CAD). Synthesized 2D images are generated from the tomosynthesis. FINDINGS: There are scattered areas of fibroglandular density (ACR BI-RADS breast composition Category b). There are no significant masses, abnormal calcifications, or other abnormalities. There is a tissue marker in the upper outer quadrant of the left breast. It is associated with a small focal asymmetry. This represents a site of prior benign percutaneous biopsy. In the upper outer quadrant of the right breast, there is a lobulated mass containing coarse calcifications. This finding is used equipment sales representative of an involuting fibroadenoma. This is a benign entity. MM/MM tomosynthesis screening BI IMPRESSION: No mammographic evidence of malignancy. ASSESSMENT: BI-RADS BI-RADS 2 - Benign Findings RECOMMENDATION: Routine annual mammography screening. 1 year F/U This examination should not preclude the clinical evaluation of a suspicious palpable abnormality. This patient's information was entered into a reminder system with a target due date for their next mammogram.
== END 2023-10-25 07:27 | disposition home or self-care (01) ==
LOC: HO.MAMMO 07:26
PROVIDERS: PCP Internal Medicine; Visit Provider Internal Medicine
DX: Z12.31 Encounter for screening mammogram for malignant neoplasm of breast (principal)
CPT/HCPCS: 77063; 77067

== ENCOUNTER → 2023-10-25 07:45 | Outpatient (BNV) | payer OTHER, SELFPAY | PROVIDERS: PCP Internal Medicine; Visit Provider Radiology Diagnostic Radiology | DX: Z12.31 Encounter for screening mammogram for malignant neoplasm of breast (principal) | CPT/HCPCS: 77063; 77067 ==

== ENCOUNTER 2023-12-31 08:18 | Outpatient (AMB) | payer OTHER, SELFPAY ==
[2023-12-31 08:26] VITALS: BP 110/66; BMI 23.9
--- NOTE | 2023-12-31 08:26 | MHC.OFFVIS ---
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 Intake Note: c/o of hot flashes Sleeve Machine Tender Required: No Information Interpreted: non-clinical & clinical Internist Medical Doctor Md: Internist Medical Doctor Md Present (Beckie Medel ERIKA) Accompanied by: Self / Same As Patient Allergies Sulfa (Sulfonamide Antibiotics) Allergy (Intermediate, Verified 12/31/23 08:27) hives sulfamethoxazole [From BACTRIM] Allergy (Intermediate, Verified 12/31/23 08:27) HIVES trimethoprim [From BACTRIM] Allergy (Intermediate, Verified 12/31/23 08:27) HIVES erythromycin base Allergy (Unknown, Verified 12/31/23 08:27) Unknown Seasonal Allergies Allergy (Unknown, Verified 12/31/23 08:27) Unknown codeine Adverse Reaction (Severe, Verified 12/31/23 08:27) severe GI upset oxycodone [Percocet] Adverse Reaction (Intermediate, Verified 12/31/23 08:27) Nausea Post menopausal: Yes HPI Comments Details: Presenting for annual exam. Complaining of multiple episodes (6) of vaginal bleeding over the last year. FSH in 07/16 was in the menopausal range in addition, the patient has been complaining for hot flashes Last Pap/HPV was negative in 02/11 Last Mammogram was BI-RADS 2 in 11/15 Last Colonoscopy was done in 04/16, the recommendation was to repeat in 7-10 years TSH on 10/30/23 at [facility] was within normal PFSH Medical History (Updated 12/31/23 @ 08:54 by Mark Ashley MD) Postmenopausal bleeding Diverticulosis Thyroid nodule Migraine with aura Surgical History Hx of colonoscopy History of left breast biopsy History of cholecystectomy (~09/2012) Family History Father History of melanoma Heart disease Paternal Grandmother History of colon cancer, Onset Age: 90 Mother Emphysema of lung Social History Household Members: None Housing: House Alcohol intake: current Patient Tobacco Use Status: Never used Tobacco service: No Current occupational status: employed 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 orientation: Straight/Heterosexual Gender identity: Female Female Reproductive History Menstrual Age of Menarche: 13 Menopause type: natural Date of last pap smear: 02/21/20 Date of Mammogram: 10/25/23 Review of Systems Const All systems reviewed & are unremarkable except as noted in HPI and below Card Reports as per HPI Resp Reports as per HPI GI Reports as per HPI and Reports no additional complaints Reports as per HPI Physical Exam Vital Signs: Last Vital Signs BP 110/66 12/31/23 08:26 BMI result Body Mass Index 23.9 Const General: cooperative, healthy appearing and comfortable Chest Chest palpation & inspection: normal inspection of the chest and normal palpation of entire chest wall Breast/axilla inspection: normal inspection of the breasts and normal inspection of the axillae Breast/axilla palpation: normal palpation of the breasts, normal palpation of the axillae and no axillary lymphadenopathy Resp Effort & Inspection: normal respiratory effort Auscultation: clear to auscultation bilaterally Percussion: percussion normal Cardio Palpation: normal PMI Rate: regular rate Rhythm: regular rhythm Heart sounds: no murmurs and no rubs Peripheral pulses: Peripheral pulses 2+ throughout GI Inspection: Yes normal to inspection Palpation (GI): Soft to palpation, nontender, no guarding, not rigid and No hepatosplenomegaly present Percussion: Yes normal to percussion Auscultation: normal bowel sounds Rectal Exam - Female: deferred General: Yes bladder normal to palpation External Female Exam: No lesion Speculum Exam - Vagina: normal appearance of the vagina, normal palpation, normal vaginal discharge and not erythematous Speculum Exam - Cervix: normal appearance of the cervix and normal palpation Bimanual exam- vagina & uterus: normal bimanual exam, normal palpation, uterine size normal, bladder normal to palpation, consistency normal and normal palpation Bimanual Exam- Adnexa, other: normal adnexae, no masses and no tenderness Assessment & Plan Assessment & Plan (1) Well woman exam: Code(s): Z01.419 - Encounter for gynecological examination (general) (routine) without abnormal findings Category: Medical Plan: Co testing not indicated this year. Counseled the patient about the recommended dietary allowance of 1200 mg of Calcium & 600 IU of vitamin D. Instructions given to patient to schedule next screening Mammogram in 11/16. The patient was instructed to perform monthly self-breast exams and schedule annual exam in a year. All questions answered and the patient verbalized understanding. (2) Postmenopausal bleeding: Code(s): N95.0 - Postmenopausal bleeding Category: Medical Plan: Discussed with the patient the differential diagnosis of post menopausal bleeding with normal pelvic exam including but not limited to, endometrial hyperplasia, cancer, polyps and other causes; recommended pelvic ultrasound , ordered. In addition, recommended to the patient that the next step is an endometrial sampling via hysteroscopy D&C possible polypectomy versus endometrial biopsy to r/o endometrial pathology including hyperplasia or cancer. All the pros and cons risks and benefits of each approach were discussed with the patient, endometrial biopsy being less invasive, office procedure with less sensitivity and inability diagnose a polyp and removal versus hysteroscopy done under anesthesia more invasive more sensitive to endometrial cancer and possibility of diagnosing and endometrial polyp with the possibility of polypectomy. All questions were answered pt verbalized understanding and decided to proceed with hysteroscopy D&C possible polypectomy/myomectomy (3) Hot flashes: Code(s): R23.2 - Flushing Category: Medical Plan: Will defer discussion of management options for hot flashes for after endometrial sampling pathology results to rule out endometrial pathology. Orders: Orders MM tomosynthesis screening BI Today Z12.31 - Encounter for screening mammogram for malignant neoplasm of breast US pelvic and transvaginal Today N95.0 - Postmenopausal bleeding Coding Level of Care Code Est Pt Prev Care 40-64y(94008) Diagnoses Well woman exam Z01.419 Postmenopausal bleeding N95.0 Hot flashes R23.2
== END 2023-12-31 11:17 | disposition home or self-care (01) ==
PROVIDERS: Visit Provider Obstetrics & Gynecology
DX: Z01.419 Encounter for gynecological examination (general) (routine) without abnormal findings (principal); N95.0 Postmenopausal bleeding; R23.2 Flushing
CPT/HCPCS: 99396

== ENCOUNTER → 2023-12-31 08:18 | Outpatient (BNVA) | payer OTHER, SELFPAY | PROVIDERS: Visit Provider Obstetrics & Gynecology ==

== ENCOUNTER 2024-01-01 12:58 | Outpatient (REF) | payer OTHER, SELFPAY ==
--- NOTE | ~2024-01-01 | US_ITS ---
EXAMINATION: US PELVIS COMPLETE CLINICAL INFORMATION: Postmenopausal bleeding COMPARISON: MR pelvis 12/03/2022 TECHNIQUE: Transabdominal and transvaginal imaging was performed. FINDINGS: The uterus is of normal size and somewhat heterogeneous in echotexture measuring 5.4 x 2.6 x 3.8 cm. Uterus is retroverted in position. A regular homogeneous endometrium is identified measuring 0.2 cm. Both ovaries are of normal size and echogenicity. The right measures 1.5 x 1.0 x 1.6 cm for a volume of 1.3 mL. The left measures 2.0 x 0.8 x 1.3 cm for a volume of 1.1 mL. A unilocular benign 0.7 cm left ovarian cyst, now follow-up imaging recommended. There is no pelvic free fluid. US/US pelvic and transvaginal IMPRESSION: 1. Endometrium measures 2 mm in thickness. 2. A unilocular benign 0.7 cm left ovarian cyst, now follow-up imaging recommended in one year. 3. Heterogeneous uterine echotexture, a nonspecific finding.
== END 2024-01-01 12:59 | disposition home or self-care (01) ==
LOC: HO.HMGCX 12:58
PROVIDERS: PCP Internal Medicine; Visit Provider Obstetrics & Gynecology
DX: N95.0 Postmenopausal bleeding (principal)
CPT/HCPCS: 76830; 76856

== ENCOUNTER 2024-01-06 10:18 | Day surgery (SDC) | payer OTHER, SELFPAY ==
[2024-01-06 10:39] VITALS: BMI 23.0
[2024-01-06 11:05] VITALS: BP 129/72; PULSE 72; RESP 15; TEMP 37.1; O2SAT 99
--- NOTE | 2024-01-06 11:50 | P.CONAN_ITS ---
Documented by User: Rere Fuentes NP 01/05/24 10:48 HPI - Anesthesia Eval Consult details Narrative: 53yo F for D&C Hysteroscopy PMFSH Active Problems Active Problems: All Active Problems Postmenopausal bleeding (Acute) Well woman exam (Acute) Hemorrhoids (Acute) Diverticulosis (Acute) Personal history of colonic polyps (Acute) Fibroadenoma of left breast (Acute) Encounter for annual routine gynecological examination (Acute) Hot flashes (Acute) Abdominal bloating (Acute) Alternating constipation and diarrhea (Acute) Encounter for colorectal cancer screening (Acute) Encounter for removal of intrauterine contraceptive device (IUD) (Acute) Abnormal uterine bleeding (Acute) URI (upper respiratory infection) (Acute) COVID (Acute) Endometrial polyp (Acute) Complex ovarian cyst (Acute) Past Medical History Medical History (Updated 01/06/24 @ 10:36 by Haily Leung RN) Hx of renal calculi Heartburn Postmenopausal bleeding Diverticulosis Thyroid nodule Migraine with aura Family History Family History Father History of melanoma Heart disease Paternal Grandmother History of colon cancer, Onset Age: 90 Mother Emphysema of lung Family history of problems with anesthesia: No Surgical History Surgical History (Updated 01/06/24 @ 10:38 by Haily Leung RN) Hx of wisdom tooth extraction Hx of colonoscopy History of left breast biopsy History of cholecystectomy (~09/2012) History of Problems with Anesthesia: No Social History Social History Household Members: None Housing: House Alcohol intake: current Alcohol intake frequency: holidays/special occasions on ly Patient Tobacco Use Status: Never used Tobacco Use of substances other than those prescribed or required for medical reasons: Yes Substance Use Type Other:: edible rare Are you DNR?: No Advance Directives: No Advance Directives Information Provided: Yes service: No Current occupational status: employed 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 orientation: Straight/Heterosexual Gender identity: Female Meds Allergies Allergy/AdvReac Type Severity Reaction Status Date / Time Sulfa (Sulfonamide Allergy Intermediate hives Verified 01/06/24 10:37 Antibiotics) sulfamethoxazole Allergy Intermediate HIVES Verified 01/06/24 10:37 [From BACTRIM] trimethoprim [From BACTRIM] Allergy Intermediate HIVES Verified 01/06/24 10:37 erythromycin base Allergy Unknown Unknown Verified 01/06/24 10:37 Seasonal Allergies Allergy Unknown Unknown Verified 01/06/24 10:37 codeine AdvReac Severe severe GI Verified 01/06/24 10:37 upset oxycodone [Percocet] AdvReac Intermediate Nausea Verified 01/06/24 10:37 Assessment and Plan Assessment Anesthesia Assessment: Chart Reviewed Final Anesthetic Review Family History of Problems with Anesthesia: No History of Problems with Anesthesia: No Documented by User: Haily Hodge DO 01/06/24 12:01 [facility] Past Medical History Medical History (Updated 01/06/24 @ 10:36 by Haily Leung RN) Hx of renal calculi Heartburn Postmenopausal bleeding Diverticulosis Thyroid nodule Migraine with aura Family History Family History Father History of melanoma Heart disease Paternal Grandmother History of colon cancer, Onset Age: 90 Mother Emphysema of lung Family history of problems with anesthesia: No Surgical History Surgical History (Updated 01/06/24 @ 10:38 by Haily Leung RN) Hx of wisdom tooth extraction Hx of colonoscopy History of left breast biopsy History of cholecystectomy (~09/2012) History of Problems with Anesthesia: No Social History Social History Household Members: None Housing: House Alcohol intake: current Alcohol intake frequency: holidays/special occasions only Patient Tobacco Use Status: Never used Tobacco Use of substances other than those prescribed or required for medical reasons: Yes Substance Use Type Other:: edible rare Are you DNR?: No Advance Directives: No Advance Directives Information Provided: Yes service: No Current occupational status: employed 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 orientation: Straight/Heterosexual Gender identity: Female Meds Allergies Allergy/AdvReac Type Severity Reaction Status Date / Time Sulfa (Sulfonamide Allergy Intermediate hives Verified 01/06/24 10:37 Antibiotics) sulfamethoxazole Allergy Intermediate HIVES Verified 01/06/24 10:37 [From BACTRIM] trimethoprim [From BACTRIM] Allergy Intermediate HIVES Verified 01/06/24 10:37 erythromycin base Allergy Unknown Unknown Verified 01/06/24 10:37 Seasonal Allergies Allergy Unknown Unknown Verified 01/06/24 10:37 codeine AdvReac Severe severe GI Verified 01/06/24 10:37 upset oxycodone [Percocet] AdvReac Intermediate Nausea Verified 01/06/24 10:37 Exam Exam Date and Time: January 06, 2024 1150 Height,Weight and Vital Signs: Height 5 ft 4 in Weight 60.781 kg Vital Signs Temperature 98.7 F 01/06/24 11:05 Pulse Rate 72 01/06/24 11:05 Respiratory Rate 15 01/06/24 11:05 Blood Pressure 129/72 01/06/24 11:05 Pulse Oximetry 99 01/06/24 11:05 Oxygen Delivery Method Room Air 01/06/24 11:05 Temperature 98.7 F 01/06/24 11:05 Pulse Rate 72 01/06/24 11:05 Respiratory Rate 15 01/06/24 11:05 Blood Pressure 129/72 01/06/24 11:05 Pulse Oximetry 99 01/06/24 11:05 Oxygen Delivery Method Room Air 01/06/24 11:05 Airway Mallampati Class: I TM Dist: >3cm Neck ROM: Full Loose/Missing/Broken Teeth: Yes (some broken teeth but no loose teeth) Heart: S1S2 Lungs: CTAB Assessment and Plan Assessment Anesthesia Assessment: Anesthesia Plan Discussed and Chart Reviewed Final Anesthetic Review Family History of Problems with Anesthesia: No History of Problems with Anesthesia: No NPO: Yes ASA Class: II Final Preanesthetic Review: No Changes in Pt Med Stat, Meds/Allgs Chart Reviewed, Consent Obtained/Reviewed and Anes Risks/Benef Reviewed Patient Risk: Low Procedure Risk: Low Anesthetic Plan Anesthetic Plan: GA and Agree w/ Assess. and Plan Disposition: Standard PACU
--- NOTE | 2024-01-06 11:59 | MHC.SHP ---
Pre-Procedural Eval Section A - 24 Hr Update-Section A only Date of Service: 01/06/24 The patient is an INPATIENT: No Changes since office visit: No Cold of Flu in the past 2 weeks, No New Medical Problems, No Changes in Medication and No Patient answered all questions The patient has been examined within 24 hours of the surgical procedure. The History & Physical has been completed within 30 days and I have reviewed it.: Yes Section B - Complete if H&P > 30 days Chief Complaint: Postmenopausal bleeding Allergies: Allergies Allergy/AdvReac Type Severity Reaction Status Date / Time Sulfa (Sulfonamide Allergy Intermediate hives Verified 01/06/24 10:37 Antibiotics) sulfamethoxazole Allergy Intermediate HIVES Verified 01/06/24 10:37 [From BACTRIM] trimethoprim [From BACTRIM] Allergy Intermediate HIVES Verified 01/06/24 10:37 erythromycin base Allergy Unknown Unknown Verified 01/06/24 10:37 Seasonal Allergies Allergy Unknown Unknown Verified 01/06/24 10:37 codeine AdvReac Severe severe GI Verified 01/06/24 10:37 upset oxycodone [Percocet] AdvReac Intermediate Nausea Verified 01/06/24 10:37 Plan Diagnosis/Plan: Unchanged I have reviewed the history and physical and performed a pertinent physical examination on my patient. No changes have occurred unless specified. Time Spent With Patient Time: Total time managing care of this patient today ____ minutes.
--- NOTE | 2024-01-06 12:30 | PM.OP ---
Brief Operative Note Date of Service: 01/06/24 Pre-op diagnosis: Postmenopausal bleeding Post-op diagnosis: same (Normal endometrial cavity) Procedure: Hysteroscopy D&C Surgeon: Mark Ashley MD Anesthesia: GLMA Was an Collection Coordinator used for this Procedure?: No Estimated blood loss (mL): 0 Pathology: other (Endometrial Scrapping. ) Condition: stable Disposition: PACU
--- NOTE | 2024-01-06 12:31 | P.OP_ITS ---
Operative Note Operative Note Date of Service: 01/06/24 Narrative: Preop Diagnosis: Post Menopausal bleeding Operation: Diagnostic Hysteroscopy, Dilataion & Curettage Post Op Diagnosis: Normal endometrial cavity QBL: Minimal Anesthesia: GLMA Surgeon: Mark Ashley MD Concrete Plant Laborer: None Complication: None Pathology: Endometrial Scrapings Procedure: The patient was put in the dorsal lithotomy position, scrubbed, and draped in the usual manner. A sterile speculum was inserted in the patient's vagina. The anterior lip of the cervix was grasped with a single tooth tenaculum. The cervix was dilated up to 5 mm, then the scope was inserted in the patient's uterus. Inspection revealed Normal endometrial cavity. The Myosure Reach device was used; the scope was removed from the endometrial cavity , sharp curettings was carried on with minimal to moderate amount of tissues retrieved. At the end of the procedure, all instruments were taken out of the patient uterine and vaginal cavity. The single tooth tenaculum was removed and homeostasis was assured using pressure,. The patient tolerated the procedure well and was transferred to the PACU in a stable condition.
[2024-01-06 12:40] VITALS: BP 107/55; PULSE 90; RESP 16; TEMP 36.2; O2SAT 99
[2024-01-06 12:45] VITALS: BP 108/61; PULSE 73; RESP 18; O2SAT 99
[2024-01-06 12:50] VITALS: BP 112/63; PULSE 75; RESP 16; O2SAT 98
[2024-01-06] MEDS: Acetaminophen 325 MG TABLET 650 MG PO (12:54)
[2024-01-06 12:55] VITALS: BP 116/67; PULSE 68; RESP 18; O2SAT 98
[2024-01-06 13:10] VITALS: BP 114/65; PULSE 63; RESP 16; TEMP 36.4; O2SAT 98
== END 2024-01-06 13:52 | disposition home or self-care (01) ==
PROVIDERS: PCP Internal Medicine; Visit Provider Obstetrics & Gynecology
PROC: 0UDB8ZZ Extraction of Endometrium, Via Natural or Artificial Opening Endoscopic (ICD-10-PCS; CPT 58558; principal; 2024-01-06 11:50)
DX: N95.0 Postmenopausal bleeding (principal); E04.1 Nontoxic single thyroid nodule; G43.109 Migraine with aura, not intractable, without status migrainosus; R23.2 Flushing; Z90.49 Acquired absence of other specified parts of digestive tract; Z88.1 Allergy status to other antibiotic agents; Z88.2 Allergy status to sulfonamides; Z88.5 Allergy status to narcotic agent
CPT/HCPCS: 58558; 88305; J1100; J1885; J2405; J2704; J3010

== ENCOUNTER → 2024-01-06 10:18 | Outpatient (BNV) | payer OTHER, SELFPAY | PROVIDERS: PCP Internal Medicine; Visit Provider Obstetrics & Gynecology | DX: N95.0 Postmenopausal bleeding (principal) | CPT/HCPCS: 58558 ==

== ENCOUNTER 2024-01-26 12:40 | Outpatient (AMB) | payer OTHER, SELFPAY ==
--- NOTE | 2024-01-26 12:47 | MHC.OFFVIS ---
Intake Visit Reasons: post op Allergies Sulfa (Sulfonamide Antibiotics) Allergy (Intermediate, Verified 01/06/24 10:37) hives sulfamethoxazole [From BACTRIM] Allergy (Intermediate, Verified 01/06/24 10:37) HIVES trimethoprim [From BACTRIM] Allergy (Intermediate, Verified 01/06/24 10:37) HIVES erythromycin base Allergy (Unknown, Verified 01/06/24 10:37) Unknown Seasonal Allergies Allergy (Unknown, Verified 01/06/24 10:37) Unknown codeine Adverse Reaction (Severe, Verified 01/06/24 10:37) severe GI upset oxycodone [Percocet] Adverse Reaction (Intermediate, Verified 01/06/24 10:37) Nausea HPI Comments Details: The patient is presenting post hysteroscopy D&C no complaints minimal vaginal bleeding no feverishness chills or abdominal pain. The pathology showed the following: Endometrium, curettage: - Superficial strips of benign endometrium; no atypia identified. - Few strips of endocervical and squamous epithelium within normal limits; mucoinflammatory material and blood PFSH Medical History Hx of renal calculi Heartburn Postmenopausal bleeding Diverticulosis Thyroid nodule Migraine with aura Surgical History Hx of wisdom tooth extraction Hx of colonoscopy History of left breast biopsy History of cholecystectomy (~09/2012) Family History Father History of melanoma Heart disease Paternal Grandmother History of colon cancer, Onset Age: 90 Mother Emphysema of lung Social History Household Members: None Housing: House Alcohol intake: current Alcohol intake frequency: holidays/special occasions only Patient Tobacco Use Status: Never used Tobacco service: No Current occupational status: employed 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 Discussed with the patient the sensitivity, specificity, positive and negative predictive value, of endometrial biopsy in detecting endometrial pathology including but not limited to endometrial hyperplasia, cancer and other pathology; instructed the patient to call in case vaginal bleeding bleeding recurs, the next step will be to proceed with further endometrial sampling evaluation to rule out endometrial pathology. All questions answered and the patient verbalized understanding and agreed with the plan. Coding Level of Care Code Est Pt Level 3 (26427) Diagnoses Postmenopausal bleeding N95.0
== END 2024-01-26 13:00 | disposition home or self-care (01) ==
LOC: HO.HWS 12:40
PROVIDERS: PCP Internal Medicine; Visit Provider Obstetrics & Gynecology
DX: N95.0 Postmenopausal bleeding (principal)
CPT/HCPCS: 99213

== ENCOUNTER → 2024-01-26 12:40 | Outpatient (BNVA) | payer OTHER, SELFPAY | PROVIDERS: PCP Internal Medicine; Visit Provider Obstetrics & Gynecology ==

== ENCOUNTER 2024-03-24 16:34 | Outpatient (REF) | payer OTHER, SELFPAY ==
[2024-03-24 16:49] LABS: MANUAL DIFF FLAG NO
[2024-03-24 17:09] LABS: Basophils Absolute Auto 0.1 X10*3/uL (0.0-0.2); Basophils Percent Auto 1.1 % (0-2); Eosinophils Absolute Auto 0.2 X10*3/uL (0.0-0.4); Eosinophils Percent Auto 3.9 % (0-4); Hematocrit 42.6 % (37.0-47.0); Hemoglobin 14.3 g/dl (12.0-16.0); Imm Gran Abs Auto 0.01 X10*3/uL (0.00-0.03); Imm Gran Pct Auto 0.2 % (0.0-0.4); Lymphocytes Absolute Auto 2.2 X10*3/uL (1.2-4.9); Lymphocytes Percent Auto 39.1 % (20-40); Mean Corpuscular HGB Conc 33.6 g/dl (31.0-35.0); Mean Corpuscular Hemoglobin 30.2 pg (27.0-33.0); Mean Corpuscular Volume 89.9 fL (80.0-98.0); Mean Platelet Volume 10.8 fL (9.4-12.3); Monocytes Absolute Auto 0.5 X10*3/uL (0.1-1.2); Monocytes Percent Auto 8.6 % (2-11); Neutrophils Absolute Auto 2.6 x10*3/uL (2.0-8.3); Neutrophils Percent Auto 47.1 % (45-73); Platelet Count 281 X10*3/uL (160-400); Red Blood Count 4.74 X10*6/uL (4.20-5.50); Red Cell Distribution Width 12.9 % (11.0-16.0); White Blood Count 5.6 X10*3/uL (4.8-10.8)
[2024-03-24 17:41] LABS: Alanine Aminotransferase 10 U/L (0-31); Albumin Level 4.3 g/dL (3.5-5.0); Alkaline Phosphatase 69 U/L (39-117); Anion Gap 10 (12-20); Aspartate Amino Transferase 16 U/L (5-31); Bilirubin Total 0.5 mg/dL (0.0-1.0); Blood Urea Nitrogen 11 mg/dL (9-16); C Reactive Protein < 0.10 mg/dL (< or = 0.50); Calcium 9.6 mg/dL (8.4-10.2); Carbon Dioxide 29 mmol/L (22-29); Chloride 105 mmol/L (96-108); Cholesterol 206 mg/dL (<200); Estimated Glomerular Filt Rate > 60; Glucose Random 93 mg/dL (60-115); HDL Cholesterol 68 mg/dL (>40); LDL Cholesterol Calculated 120 mg/dL (<100); Potassium 3.9 mmol/L (3.3-5.1); Sodium 140 mmol/L (135-145); Total Protein 7.2 g/dL (6.5-8.0); Triglycerides 94 mg/dL (<150)
[2024-03-24 17:58] LABS: Free T4 (Free Thyroxine) 0.97 ng/dL (0.71-1.85); Thyroid Stimulating Hormone 1.45 uIU/mL (0.32-4.0); Vitamin D 25-OH Total 51.3 ng/mL (>30)
[2024-03-24 18:06] LABS: Vitamin B12 547 pg/mL (200-900)
[2024-03-25 05:16] LABS: Estimated Average Glucose 100 mg/dL; Hemoglobin A1c % 5.1 % (<6.0)
[2024-03-25 08:12] LABS: Follicle Stimulating Hormone 125.4 mIU/mL; Lutenizing Hormone 89.6 mIU/mL
== END 2024-03-24 16:35 | disposition home or self-care (01) ==
LOC: HO.LAB 16:34
PROVIDERS: PCP Internal Medicine; Visit Provider Internal Medicine
DX: R53.83 Other fatigue (principal); E04.1 Nontoxic single thyroid nodule; Z82.49 Family history of ischemic heart disease and other diseases of the circulatory system; Z13.1 Encounter for screening for diabetes mellitus; K57.90 Diverticulosis of intestine, part unspecified, without perforation or abscess without bleeding
CPT/HCPCS: 36415; 80053; 80061; 82306; 82607; 83001; 83002; 83036; 84439; 84443; 85025; 86140

== ENCOUNTER 2024-06-19 08:18 | Outpatient (REF) | payer OTHER, SELFPAY ==
[2024-06-19 09:12] LABS: Cholesterol 190 mg/dL (<200); HDL Cholesterol 70 mg/dL (>40); LDL Cholesterol Calculated 104 mg/dL (<100); Triglycerides 82 mg/dL (<150)
== END 2024-06-19 08:19 | disposition home or self-care (01) ==
LOC: HO.LAB 08:18
PROVIDERS: PCP Internal Medicine; Visit Provider Internal Medicine
DX: E78.00 Pure hypercholesterolemia, unspecified (principal)
CPT/HCPCS: 36415; 80061

== ENCOUNTER 2024-06-21 14:38 | Outpatient (AMB) | payer OTHER, SELFPAY ==
--- NOTE | 2024-06-21 14:56 | MHC.OFFVIS ---
Vital Signs 06/21/24 14:57 Height 5 ft 3 in Weight 143 lb 6 oz BMI 25.4 BP 114/66 Blood Pressure Location Lt brachial Position Sitting Intake Visit Reasons: bleeding Allergies Sulfa (Sulfonamide Antibiotics) Allergy (Intermediate, Verified 06/21/24 14:58) hives sulfamethoxazole [From BACTRIM] Allergy (Intermediate, Verified 06/21/24 14:58) HIVES trimethoprim [From BACTRIM] Allergy (Intermediate, Verified 06/21/24 14:58) HIVES erythromycin base Allergy (Unknown, Verified 06/21/24 14:58) Unknown Seasonal Allergies Allergy (Unknown, Verified 06/21/24 14:58) Unknown codeine Adverse Reaction (Severe, Verified 06/21/24 14:58) severe GI upset oxycodone [Percocet] Adverse Reaction (Intermediate, Verified 06/21/24 14:58) Nausea HPI Comments Details: The patient is presenting with multiple episodes of vaginal spotting/bleeding over the last 3 months. Hysteroscopy D&C done in 01/15, the pathology showed the following: Endometrium, curettage: - Superficial strips of benign endometrium; no atypia identified. - Few strips of endocervical and squamous epithelium within normal limits; mucoinflammatory material and blood. Last co testing in 02/11 was negative PFSH Medical History Hx of renal calculi Heartburn Postmenopausal bleeding Diverticulosis Thyroid nodule Migraine with aura Surgical History Hx of wisdom tooth extraction Hx of colonoscopy History of left breast biopsy History of cholecystectomy (~09/2012) Family History Father History of melanoma Heart disease Paternal Grandmother History of colon cancer, Onset Age: 90 Mother Emphysema of lung Social History Household Members: None Housing: House Alcohol intake: current Alcohol intake frequency: holidays/special occasions only Patient Tobacco Use Status: Never used Tobacco service: No Current occupational status: employed 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 orientation: Straight/Heterosexual Gender identity: Female Female Reproductive History Menstrual Age of Menarche: 13 Review of Systems Const All systems reviewed & are unremarkable except as noted in HPI and below Physical Exam Vital Signs: Last Vital Signs BP 114/66 06/21/24 14:57 BMI result Body Mass Index 25.4 General: Yes no CVA tenderness External Female Exam: normal external appearance and normal appearance of the urethra Speculum Exam - Vagina: normal appearance of the vagina, normal palpation, no lesions and no masses Speculum Exam - Cervix: normal appearance of the cervix, normal palpation, no lesions, no masses and nontender Bimanual exam- vagina & uterus: normal bimanual exam, normal palpation, uterine size normal, normal palpation, uterine shape normal, No Cervical tenderness present and non-tender Bimanual Exam- Adnexa, other: normal adnexae Back/Spine/Pelvis Back: no CVA tenderness Assessment & Plan Assessment & Plan (1) Postmenopausal bleeding: Comment: Recurrent Code(s): N95.0 - Postmenopausal bleeding Category: Medical Plan: Discussed with the patient the differential diagnosis of post menopausal bleeding with normal pelvic exam including but not limited to, endometrial hyperplasia, cancer, polyps and other causes; recommended a pelvic ultrasound. Instructed the patient to schedule a pelvic ultrasound with a follow-up appointment in 1-2 weeks for possible endometrial biopsy versus hysteroscopy D&C possible polypectomy to rule out endometrial pathology. All questions answered, the patient verbalized understanding and agreed with the plan. This note was generated with a voice recognition program. Some errors may have been overlooked during the review of this note. Sometimes these errors may affect the content or meaning of a given sentence. Orders: Orders US pelvic and transvaginal Today N95.0 - Postmenopausal bleeding Coding Level of Care Code Est Pt Level 3 (16026) Diagnoses Postmenopausal bleeding N95.0
[2024-06-21 14:57] VITALS: BP 114/66; BMI 25.4
== END 2024-06-21 15:39 | disposition home or self-care (01) ==
LOC: HO.HWS 14:39
PROVIDERS: PCP Internal Medicine; Visit Provider Obstetrics & Gynecology
DX: N95.0 Postmenopausal bleeding (principal)
CPT/HCPCS: 99213

== ENCOUNTER → 2024-06-21 14:38 | Outpatient (BNVA) | payer OTHER, SELFPAY | PROVIDERS: PCP Internal Medicine; Visit Provider Obstetrics & Gynecology ==

== ENCOUNTER 2024-06-23 14:45 | Outpatient (REF) | payer OTHER, SELFPAY | END 2024-06-23 14:46 | disposition home or self-care (01) | LOC: HO.US 14:45 | PROVIDERS: PCP Internal Medicine; Visit Provider Obstetrics & Gynecology | DX: N95.0 Postmenopausal bleeding (principal) | CPT/HCPCS: 76830; 76856 ==

== ENCOUNTER 2024-09-02 15:24 | Outpatient (REF) | payer OTHER, SELFPAY | END 2024-09-02 15:25 | disposition home or self-care (01) | LOC: HO.LNP 15:24 | PROVIDERS: PCP Internal Medicine; Visit Provider Obstetrics & Gynecology | DX: N93.9 Abnormal uterine and vaginal bleeding, unspecified (principal) | CPT/HCPCS: 58100; 88305 ==

== ENCOUNTER 2024-09-02 15:24 | Outpatient (AMB) | payer OTHER, SELFPAY ==
--- NOTE | 2024-09-02 15:34 | MHC.OFFVIS ---
Intake Visit Reasons: 2 week US follow up/EMB Substation Operator Apprentice: Substation Operator Apprentice Present (Marcy) Accompanied by: Self / Same As Patient Allergies Sulfa (Sulfonamide Antibiotics) Allergy (Intermediate, Verified 09/02/24 15:34) hives sulfamethoxazole [From BACTRIM] Allergy (Intermediate, Verified 09/02/24 15:34) HIVES trimethoprim [From BACTRIM] Allergy (Intermediate, Verified 09/02/24 15:34) HIVES erythromycin base Allergy (Unknown, Verified 09/02/24 15:34) Unknown Seasonal Allergies Allergy (Unknown, Verified 09/02/24 15:34) Unknown codeine Adverse Reaction (Severe, Verified 09/02/24 15:34) severe GI upset oxycodone [Percocet] Adverse Reaction (Intermediate, Verified 09/02/24 15:34) Nausea HPI Comments Details: Presenting for ultrasound follow-up which showed the following: UTERUS: The uterus is anteverted. Size: 7 x 4.6 x 4.8 cm. Uterine mass: There is no uterine mass. Cervix: Grossly unremarkable. Endometrium: Borderline thickened endometrial thickness measures 0.4 cm abnormal for postmenopausal status, cannot rule out pathology. ADNEXA: Normal Right ovary: Normal in size. Right ovarian cystic structure 1.9 x 2.7 cm likely dominant follicle. Left ovary: Normal in size. Doppler exam: Normal Doppler flow identified in both ovaries. FREE FLUID: Trace amount of free fluid. OTHER FINDINGS: None IMPRESSION: 1. Borderline thickened endometrium measuring up to 4 mm, cannot rule out pathology. May consider FAMILY DINNER SERVICE SPECIALIST consultation and D&C, if not performed recommend correlation with follow-up pelvic MRI and/or ultrasound in 6-8 weeks weeks. 2. Right ovarian cystic structure 2.7 cm likely dominant follicle The patient has been having recurrent vaginal bleeding over the last 2 weeks [facility] Medical History Hx of renal calculi Heartburn Postmenopausal bleeding Diverticulosis Thyroid nodule Migraine with aura Surgical History Hx of wisdom tooth extraction Hx of colonoscopy History of left breast biopsy History of cholecystectomy (~09/2012) Family History Father History of melanoma Heart disease Paternal Grandmother History of colon cancer, Onset Age: 90 Mother Emphysema of lung Social History Household Members: None Housing: House Alcohol intake: current Alcohol intake frequency: holidays/special occasions only Patient Tobacco Use Status: Never used Tobacco service: No Current occupational status: employed 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 ) Review of Systems Const All systems reviewed & are unremarkable except as noted in HPI and below Reports as per HPI and Reports no additional complaints GI Reports no additional complaints Reports no additional complaints Office Procedures Endometrial Biopsy Details: The patient was counseled regarding the indication and benefits of endometrial sampling to rule out endometrial pathology including not limited to endometrial hyperplasia or endometrial cancer and others; The alternatives (Either do nothing vs. hysteroscopy D&C) & the risks were discussed with the patient including but not limited: pain, uterine perforation, bleeding, infection, possible injury to bladder, bowel, ureter, possible need for blood transfusion with all its possible risks. The patient verbalized understanding all questions answered and signed consent. The patient was placed into the dorsal lithotomy position; a speculum was inserted in the vagina. Using aseptic technique for the procedure, the cervix was cleansed with Betadine. The anterior lip of the cervix was grasped with a single tooth tenaculum. The uterus was sounded to 7 cm with a 4 mm Pipelle was used. Tissues samples were obtained and placed in formalin, in a patient labeled container and sent to the pathology department. At the end of the procedure, there was minimal bleeding noted The patient tolerated the procedure well and was discharged in good condition with the following instructions: Nothing in the vagina until the bleeding stops. No sex until the bleeding stops, to call if any of the following occurs: fever (>100.4), flu-like symptoms, abdominal pain, heavy bleeding, four smelling vaginal discharge. The patient was instructed to schedule a Follow up appointment in 2 weeks to discuss pathology results of the biopsy and treatment options. This note was generated with a voice recognition program. Some errors may have been overlooked during the review of this note. Sometimes these errors may affect the content or meaning of a given sentence. [id number] Biopsy Assessment & Plan Assessment & Plan (1) Postmenopausal bleeding: Comment: Recurrent Code(s): N95.0 - Postmenopausal bleeding Category: Medical Plan: Discussed with the patient the pelvic ultrasound findings, the endometrial stripe thickenss measured by ultrasound reported to be 4mm. Review of the ultrasound films reviewed some endometrial measurement thickness to be 5 mm in others to be 4 mm, therefore the report the ultrasound reported endometrial sickness as borderline thickened 4 mm and recommended endometrial sampling. In addition , the patient has been having recurrent bleeding. Discussed with the patient is a negative predictive value, positive predictive value, Sensitivity, specificity of using ultrasound measurement of endometrial stripe to detecting endometrial pathology including hyperplasia , polyp or cancer were discussed with the patient. Recommended to the patient that the next step is an endometrial sampling via hysteroscopy D&C possible polypectomy versus endometrial biopsy to r/o endometrial pathology including hyperplasia or cancer. All the pros and cons risks and benefits of each approach were discussed with the patient, endometrial biopsy being less invasive, office procedure with less sensitivity and inability diagnose a polyp and removal versus hysteroscopy done under anesthesia more invasive more sensitive to endometrial cancer and possibility of diagnosing and endometrial polyp with the possibility of polypectomy. All questions were answered pt verbalized understanding and decided to proceed with endometrial biopsy. EMB done, see procedure note Orders: Orders Surgical Today N93.9 - Abnormal uterine and vaginal bleeding, unspecified AMB Endometrial Biopsy Today N95.0 - Postmenopausal bleeding Coding Level of Care Code Est Pt Level 3 (81382) Procedure Only Diagnoses Postmenopausal bleeding N95.0 CPT Codes Endometrial Biopsy - CPT: 37616-Dbeyrlvoven Biopsy ([id number])
== END 2024-09-02 16:06 | disposition home or self-care (01) ==
PROVIDERS: PCP Internal Medicine; Visit Provider Obstetrics & Gynecology
DX: N95.0 Postmenopausal bleeding (principal)
CPT/HCPCS: 58100; 99213

== ENCOUNTER 2024-09-22 15:23 | Outpatient (REF) | payer OTHER, SELFPAY | END 2024-09-22 15:24 | disposition home or self-care (01) | LOC: HO.LAB 15:23 | PROVIDERS: PCP Internal Medicine; Visit Provider Obstetrics & Gynecology | DX: Z13.89 Encounter for screening for other disorder (principal) ==

== ENCOUNTER 2024-09-22 15:23 | Outpatient (AMB) | payer OTHER, SELFPAY ==
--- NOTE | 2024-09-22 15:27 | MHC.OFFVIS ---
Intake Visit Reasons: EMB results Associate Product Integrity Engineer: Associate Product Integrity Engineer Present (Marcy) Accompanied by: Self / Same As Patient Allergies Sulfa (Sulfonamide Antibiotics) Allergy (Intermediate, Verified 09/22/24 15:30) hives sulfamethoxazole [From BACTRIM] Allergy (Intermediate, Verified 09/22/24 15:30) HIVES trimethoprim [From BACTRIM] Allergy (Intermediate, Verified 09/22/24 15:30) HIVES erythromycin base Allergy (Unknown, Verified 09/22/24 15:30) Unknown Seasonal Allergies Allergy (Unknown, Verified 09/22/24 15:30) Unknown codeine Adverse Reaction (Severe, Verified 09/22/24 15:30) severe GI upset oxycodone [Percocet] Adverse Reaction (Intermediate, Verified 09/22/24 15:30) Nausea HPI Comments Details: The patient is presenting after endometrial biopsy. The patient has no vaginal bleeding, no feverishness chills or abdominal pain. Complaining of vulvovaginal itching with vaginal odor The endometrial biopsy pathology report showed the following: Endometrium, biopsy: - Inactive endometrium with lytic changes; no atypia or hyperplasia identified. - Small fragments of endocervical and squamous epithelium within normal limits PFSH Medical History Hx of renal calculi Heartburn Postmenopausal bleeding Diverticulosis Thyroid nodule Migraine with aura Surgical History Hx of wisdom tooth extraction Hx of colonoscopy History of left breast biopsy History of cholecystectomy (~09/2012) Family History Father History of melanoma Heart disease Paternal Grandmother History of colon cancer, Onset Age: 90 Mother Emphysema of lung Social History Household Members: None Housing: House Alcohol intake: current Alcohol intake frequency: holidays/special occasions only Patient Tobacco Use Status: Never used Tobacco service: No Current occupational status: employed Current occupation: [employer] Sexual orientation: Straight/Heterosexual Gender identity: Female Female Reproductive History Menstrual Age of Menarche: 13 Review of Systems Const All systems reviewed & are unremarkable except as noted in HPI and below Reports as per HPI and Reports no additional complaints GI Reports no additional complaints Reports no additional complaints Physical Exam General: Yes no CVA tenderness External Female Exam: normal external appearance and normal appearance of the urethra Speculum Exam - Vagina: normal appearance of the vagina, normal palpation, no lesions and no masses Speculum Exam - Cervix: normal appearance of the cervix, normal palpation, no lesions, no masses and nontender Bimanual exam- vagina & uterus: normal bimanual exam, normal palpation, uterine size normal, normal palpation, uterine shape normal, No Cervical tenderness present and non-tender Bimanual Exam- Adnexa, other: normal adnexae Back/Spine/Pelvis Back: no CVA tenderness Assessment & Plan Assessment & Plan (1) Postmenopausal bleeding: Code(s): N95.0 - Postmenopausal bleeding Category: Medical Plan: Discussed with the patient the results of the endometrial biopsy showing inactive endometrium. Discussed with the patient the sensitivity, specificity, positive and negative predictive value, of endometrial biopsy in detecting endometrial pathology including but not limited to endometrial hyperplasia, cancer and other pathology; instructed the patient to call in case vaginal bleeding bleeding recurs, the next step will be to proceed with a diagnostic hysteroscopy/D&C for further endometrial sampling evaluation to rule out endometrial pathology. All questions answered and the patient verbalized understanding and agreed with the plan. (2) Vulvovaginitis: Code(s): N76.0 - Acute vaginitis Category: Medical Plan: GC/CT with BV panel collected will check the results and treat accordingly. All questions answered the patient verbalized understanding Coding Level of Care Code Est Pt Level 3 (20973) Diagnoses Postmenopausal bleeding N95.0 Vulvovaginitis N76.0
--- OUTSIDE RECORDS SUMMARY | 2024-09-22 17:21 | XMS_ITS | Encounter Summary ---
Author Organization [facility] Address [phone] [facility] [employer] [address] Care Team Providers Care Press Helper Name Role Phone Jed Ricardo MD Primary Care Provider Encounter Details Date Type Department Care Team (Late Contact Info) Description 01/16/2024 Procedure Pass [facility] [address] [place] [id number] Social History Tobacco Use Types Packs/Day Years Used Date Smoking Tobacco: Never Smokeless Tobacco: Never Alcohol Use Standard Drinks/Week Comments Not Currently 0 (1 standard drink = 0.6 oz pur e alcohol) rarely Education Answer Date Recorded Are you interested in more education? Not on guillermo e 12/21/2022 Are you concerned about learning? Not on file 12/21/2022 No 12/21/2022 No 12/21/2022 Digital Access Answer Date Recorded No 01/21/2023 No 01/21/2023 Reliable internet access at home? Not on file 01/21/2023 Device with a working camera? Not on file Sex and Gender Information Value Date Recorded Sex Assigned at Not on file Gender Identity Not on file Sexual Orientation Not on file documented as of this encounter Plan of Treatment Upcoming Encounters Date Type Department Care Team (Late Contact Info) Description 10/29/2024 5:15 PM EST Appointment [facility] [address] [place] [address] Rashaun Dunn DO [address] [place] [address] 12/16/2024 4:20 PM EDT Office Visit [facility] [place] [address] [place] [address] [email or web address] documented as of this encounter Visit Diagnoses Not on filedocumented in this encounter Care Teams Press Helper Relationship Specialty Start Date End Date Jed Ricardo MD [address] [place] [address] [place] [address] PCP - General Internal Medicine 11/07/21 documented as of this encounter Additional Source Comments The information contained in this document represents components of the legal health record. It is not the complete legal health record.[facility]
--- OUTSIDE RECORDS SUMMARY | 2024-09-22 17:21 | XMS_ITS | Encounter Summary ---
Author Organization [facility] Address [phone] [facility] Shahab P. Tabatabai, [place] [address] Care Team Providers Care Forming Operator Name Role Phone Jed Ricardo MD Primary Care Provider Encounter Details Date Type Department Care Team (Late Contact Info) Description 03/05/2022 Procedure Pass [facility] [address] [place] [address] Social History Tobacco Use Types Packs/Day Years Used Date Smoking Tobacco: Never Smokeless Tobacco: Never Alcohol Use Standard Drinks/Week Comments Not Currently 0 (1 standard drink = 0.6 oz pur e alcohol) rarely Sex and Gender Information Value Date Recorded Sex Assigned at Not on file Gender Identity Not on file Sexual Orientation Not on file documented as of this encounter Plan of Treatment Upcoming Encounters Date Type Department Care Team (Late Contact Info) Description 10/29/2024 5:15 PM EST Appointment [facility] [address] [place] [address] Rashaun Dunn DO [address] [place] [phone] [email or web address] 12/16/2024 4:20 PM EDT Office Visit [facility] [address] [place] [address] Rashaun Dunn DO [address] [place] [phone] [email or web address] documented as of this encounter Visit Diagnoses Not on filedocumented in this encounter Care Teams Forming Operator Relationship Specialty Start Date End Date Jed Ricardo MD [address] [place] [address] Dr Lawler, CHYNA [address] PCP - General Internal Medicine 11/07/21 documented as of this encounter Additional Source Comments The information contained in this document represents components of the legal health record. It is not the complete legal health record.[facility]
--- OUTSIDE RECORDS SUMMARY | 2024-09-22 17:21 | XMS_ITS | Encounter Summary ---
Author Organization [facility] Address [phone] [facility] [place] [address] Care Team Providers Care Configuration Release Manager Name Role Phone Jed Ricardo MD Primary Care Provider Encounter Details Date Type Department Care Team (Late Contact Info) Description 03/06/2022 Procedure Pass [facility] [address] [place] [address] Social History Tobacco Use Types Packs/Day Years [...] Info) Description 10/29/2024 5:15 PM EST Appointment [facility] [address] [place] [address] Rashaun Dunn DO [address] [place] [address] [email or web address] 12/16/2024 4:20 PM EDT Office Visit [facility] [address] [place] [address] Rashaun Dunn DO [address] [place] [address] [email or web address] documented as of this encounter Visit Diagnoses Not on filedocumented in this encounter Care Teams Configuration Release Manager Relationship Specialty Start Date End Date Jed Ricardo MD [address] [place] [address] Dr Lawler, CHYNA [address] PCP - General Internal Medicine 11/07/21 documented as of this encounter Additional Source Comments The information contained in this document represents components of the legal health record. It is not the complete legal health record.[facility]
--- OUTSIDE RECORDS SUMMARY | 2024-09-22 17:21 | XMS_ITS | Clinical Summary ---
Author Organization [facility] Address [phone] [address] [place] [address] Care Team Providers Care Clothes Presser Name Role Phone Jed Ricardo MD Primary Care Provider Allergies Active Allergy Reactions Criticality Noted Date Comments Sulfamethoxazole-Trimethoprim Rash Low 2021 Oxycodone 08/21/2022 [place] Pollen-Short Ragweed Itching,Sneezing 03/2022 Medications No known medications Active Problems Problem Noted Date Diagnosed Date Nontoxic multinodular goiter 03/01/2022 Assessment & Plan (02/24/2024 9:00 AM EDT): The patient has a nontoxic multinodular goiter. The right lobe nodule has been biopsied found to be benign this nodule underwent alcohol ablation and appears to be decreasing in size based on the patient's sensation. She has a follow-up with interventional radiology unclear if a repeat ultrasound will be performed by them. In any case I will request an ultrasound to be done by 10/29/2024. The plan is to continue doing serial ultrasound monitoring. Assessment & Plan (11/26/2023 3:36 PM EDT): The patient has a nodular goiter and has 2 large solid cystic nodules the largest is in the right lobe. This apparently has increased by 58%. I have to assume that this is fluid accumulation. I suggested to the patient that she have alcohol ablation for this nodule to prevent it from growing. The alcohol ablation basically scar still inside of the roblero of the thyroid nodules causing the roblero to close and preventing fluid accumulation. As for the left mid/lower pole nodule it grew by 4.7% which is nonsignificant. Thyroid functions shows that she remains chemically euthyroid. I will refer the patient for alcohol ablation. She is not certain that she wants to do the procedure but I advised her to consult with the interventional radiologist who can explain this better and answered all her questions. Assessment & Plan (02/10/2023 4:27 PM EDT): The right upper pole nodule has increased in size but is mostly cystic fluid and was reclassified as TI-RADS 2 so it does not require repeat biopsy. However she is concerned about the nodule. It is visible in the neck. Nevertheless she is not having any obstructive symptoms. Normally I would have repeated the ultrasound in 2 years time but because of the concern we will repeat in 1 year. As for the 2 nodules in the left lobe 1 has decreased in size and the other increased by 13% which is not significant so these nodules do not require biopsy either. Assessment & Plan (05/03/2022 9:51 AM EDT): The patient has a nontoxic multinodular goiter. 3 dominant nodules have been biopsied as indicated above. She will repeat ultrasound of the thyroid gland approximately 1 year since that initial ultrasound. I have requested ultrasound for 10/29/2022. She will see me shortly after to review of the report. Significant growth will be 30% or more in a years time. If any of the nodules have grown by 30% or more then she will require repeat biopsy. If the nodules remain stable in size or less than 30% we will continue doing serial ultrasound monitoring. Assessment & Plan (03/01/2022 1:09 PM EDT): This is a patient with multinodular goiter at this point I cannot say that is nontoxic after get TSH levels and I will check TPO antibodies for evaluation of Gracie's thyroiditis which could be associated with papillary thyroid carcinoma. For 3 nodules have to be biopsied the right upper pole, left upper pole and left lower pole nodule. I am going to try to get the patient to get these biopsies done as soon as possible with interventional radiology for my next available time in May 01, 2022 and I will schedule her for that just in case she is not able to get the biopsies done through interventional radiology. I did inform the patient that 95% of for thyroid nodules are benign but nevertheless needs to have to perform ultrasound-guided fine-needle aspiration to ensure that this is the case. Multiple nodules associated with benign findings. Normal TSH is associated with benign findings. I asked her to do lab work today. Family History Medical History Relation Comments Melanoma Father Emphysema Mother Relation Status Comments Father Mother Social History Tobacco Use Types Packs/Day Years Used Date Smoking Tobacco: Never Passive Smoke Exposure: Never Smokeless Tobacco: Never Tobacco Cessation:Counseling Given: No Alcohol Use Standard Drinks/Week Comments Not Currently [...] on file Sexual Orientation Not on file Last Filed Vital Signs Vital Sign Reading Time Taken Comments Blood Pressure 114/68 02/24/2024 8:23 AM EDT Pulse 80 02/24/2024 8:23 AM EDT Temperature 36.6 ??C (97.9 ??F) 02/24/2024 8:23 AM ED T Respiratory Rate 12 01/16/2024 8:46 AM EDT Oxygen Saturation 97% 02/24/2024 8:23 AM EDT Inhaled Oxygen Concentration - - Weight 61.2 kg (135 lb) 02/24/2024 8:23 AM EDT Height 162.6 cm (5' 4.02 ) 02/24/2024 8:23 AM ED T Body Mass Index 23.16 02/24/2024 8:23 AM EDT Plan of Treatment Upcoming Encounters Date Type Department Care Team (Late st Contact Info) Description 10/29/2024 5:15 PM EST Appointment [address] [address] Rashaun Dunn DO [address] [place] [address] 12/16/2024 4:20 PM EDT Office Visit [facility] [address] [place] [address] [place] [address] Rashaun Dunn DO [address] [place] [address] Health Maintenance Due Date Last Done Comments Adult Td,Tdap Booster 1971 LIPID PANEL 1971 DEPRESSION SCREENING 1983 HEPATITIS B SCREENING 1989 HEPATITIS C SCREENING 1989 HIV ONE-TIME SCREENING (18-6 5 YEARS) 1989 HEPATITIS B VACCINES (1 of 3 - 19+ 3-dose series) 1990 PAP SMEAR 1992 MAMMOGRAM 2011 COLOGUARD 2016 COLONOSCOPY 2016 COLORECTAL CANCER SCREENING 2016 FIT TEST 2016 FOBT 2016 SIGMOIDOSCOPY 2016 VIRTUAL COLONOSCOPY 2016 PNEUMOCOCCAL VACCINES (50+ y ears) (1 of 1 - PCV) 2021 ZOSTER VACCINES (1 of 2) 2021 INFLUENZA VACCINE (#1) 2024 COVID-19 VACCINE (1 - 2023-2 5 season) 2024 SMOKING STATUS SCREENING (On ce After 26 Yrs) Completed 02/24/2024 HEPATITIS A VACCINES Aged Out No long er eligible based on patient's age to complete this topic HIB VACCINES Aged Out No longer eligi ble based on patient's age to complete this topic MENINGOCOCCAL VACCINES (ACWY) Aged Out No longer eligible based on patient's age to complete this topic Medical Devices Not on file Care Teams Clothes Presser Relationship Specialty Start Date End Date Jed Ricardo MD [address] [place] [address] [place] [address] PCP - General Internal Medicine 11/07/21 Additional Source Comments The information contained in this document represents components of the legal health record. It is not the complete legal health record.[facility]
== END 2024-09-22 16:31 | disposition home or self-care (01) ==
LOC: HO.HWS 15:23
PROVIDERS: PCP Internal Medicine; Visit Provider Obstetrics & Gynecology
DX: N95.0 Postmenopausal bleeding (principal); N76.0 Acute vaginitis
CPT/HCPCS: 99213

== ENCOUNTER 2024-09-22 15:23 | Outpatient (REF) | payer OTHER, SELFPAY ==
[2024-09-23 11:53] LABS: Bacterial Vaginosis PCR NEGATIVE (Negative); Candida Group PCR NOT DETECTED (Not Detect); Candida glab krusei PCR NOT DETECTED (Not Detect); Trichomonas vaginalis PCR NOT DETECTED (Not Detect)
[2024-09-23 18:23] LABS: CT PCR NOT DETECTED (Not Detect.); NG PCR NOT DETECTED (Not Detect.)
== END 2024-09-22 15:24 | disposition home or self-care (01) ==
LOC: HO.LNP 15:23
PROVIDERS: Visit Provider Obstetrics & Gynecology
DX: N95.0 Postmenopausal bleeding (principal); N76.0 Acute vaginitis
CPT/HCPCS: 81515; 87491; 87591

== ENCOUNTER 2024-09-22 15:38 | Outpatient (REF) | payer OTHER, SELFPAY ==
--- OUTSIDE RECORDS SUMMARY | 2024-09-22 17:33 | XMS_ITS | Clinical Summary ---
Author Organization [facility] Address [address] [place] [address] Care Team Providers Care Hiv Counselor Name Role Phone Pcp, No Primary Care Provider [phone] Allergies Active Allergy Reactions Criticality Noted Date Comments Sulfamethoxazole-Trimethopr im 08/21/2022 Oxycodone 08/21/2022 [place] Pollen-Short Ragweed Itching 03/01/2022 Other reaction(s): Sneezing Medications meclizine (ANTIVERT) 25 mg tablet TAKE 1 TABLET ORALLY 3 TIMES A DAY NEEDED FOR VERTIGO FOR 1 WEEK 10/05/2022 Active predniSONE (DELTASONE) 20 MG tablet TAKE 1 TABLET ORALLY DAILY FOR 5 DAYS 10/05/2022 Active Immunizations Name Administration Dates Next Due Flucelvax Trivalent PFS IM; Without Preservative (18+ mos) 06/11/2023 Social History Tobacco Use Types Packs/Day Years Used Date Smoking Tobacco: Never Smokeless Tobacco: Never Tobacco Cessation:Counseling Given: Not Answered Comments No Sex and Gender Information Value Date Recorded Sex Assigned at Not on file Legal Sex Female 8:25 AM EDT Gender Identity Not on file Sexual Orientation Not on file Last Filed Vital Signs Vital Sign Reading Time Taken Comments Blood Pressure 102/66 08/21/2022 9:38 AM EST Pulse 83 12/16/2022 11:43 AM EDT Temperature 36.8 ??C (98.3 ??F) 12/16/2022 11:43 AM E DT Respiratory Rate 17 12/16/2022 11:43 AM EDT Oxygen Saturation 99% 12/16/2022 11:43 AM EDT Inhaled Oxygen Concentration - - Weight - - Height - - Body Mass Index - - Plan of Treatment Health Maintenance Due Date Last Done Comments Colorectal Cancer: COLONOSCO PY Screening every 10 yrs (or Modifier) 1971 Depression: Screening Annual ly using PHQ-2/9 in Adults 18 yrs or above (or HM Modifier)([facility]) 1989 Hepatitis C Virus Infection in Adolescents and Adults: Screening (or Modifier) ([facility]) 1989 [facility] Screening Reminder: Dasha muhammad for all adults ([facility]) 1989 Tobacco Smoking Cessation: i n Adults excluding Women: Behavioral and Pharmacotherapy Interventions ([facility]) 1989 DTaP/Tdap/Td Vaccines ([facility]) (1 - Tdap) 1990 Cervical Cancer Screenin 1-65 yrs of age (or Modifier) 1992 Cervical Cancer Screening: P ap every 3 yrs pts age 21-65 1992 Cervical Cancer: Pap Screeni ng with Modifier timing ([facility]) 1992 Cervical Cancer: hrHPV alone or with cotesting Pap for Pts 30-65yrs screening every 5yrs ([facility]) 1992 Colorectal Cancer Screening 45 -75 Yrs (or HM Modifier) 2016 Colorectal Cancer: FLEXIBLE SIGMOIDOSCOPY Screening every 5 yrs 2016 Colorectal Cancer: Fecal Immunochemical Test (FIT) Annually [facility] 2016 Colorectal Cancer: High-sens itivity gFOBT Screening Annually [facility] 2016 Colorectal Cancer: Stool Col oguard Screening every 3 yrs 2016 Colorectal Cancer:CT Colonog lupillo Screening every 5 yrs 2016 Lipid Screening: Every 5 yrs for Women aged 45+ (or HM Modifier) ([facility]) 2017 Breast Cancer: Screening Dasha sabina age 50-74 yrs (or HM Modifier)([facility]) 2021 Zoster/Shingles Vaccine Seri es Screening: Adults aged 18+ yrs (or HM Modifiers)([facility]) (1 of 2) 2021 Flu Vaccination: Yearly for ages 18mos through 64 years (or Modifier)([facility]) 03/25/2024 06/11/2023 COVID-19 Vaccine Screening: Initial Series and Booster Status ([facility]) (2023- season) 2024 Pneumococcal Vaccination Scr eening: Pts 0-19 & 19-64 yrs of age ([facility]) Aged Out No longer eligible b ased on patient's age to complete this topic Medical Devices Not on file Insurance [facility] Care Teams Hiv Counselor Relationship Specialty Start Date End Date Pcp, Margarita PCP - General Family Medicine 08/21/22
== END 2024-09-22 15:39 | disposition home or self-care (01) ==
LOC: HO.LNP 15:38
PROVIDERS: Visit Provider Obstetrics & Gynecology
DX: Z13.89 Encounter for screening for other disorder (principal)

== ENCOUNTER 2024-10-05 14:23 | Outpatient (AMB) | payer OTHER, SELFPAY ==
[2024-10-05 14:30] VITALS: BMI 22.1
--- NOTE | 2024-10-05 14:30 | MHC.OFFVIS ---
Vital Signs 10/05/24 14:30 Height 5 ft 3 in Weight 125 lb BMI 22.1 Intake Visit Reasons: vaginal bleeding Mate Fishing Vessel Required: No Information Interpreted: non-clinical & clinical Crab Meat Processor: Crab Meat Processor Present (Beckie Medel ERIKA) Accompanied by: Self / Same As Patient Allergies Sulfa (Sulfonamide Antibiotics) Allergy (Intermediate, Verified 10/05/24 14:33) hives sulfamethoxazole [From BACTRIM] Allergy (Intermediate, Verified 10/05/24 14:33) HIVES trimethoprim [From BACTRIM] Allergy (Intermediate, Verified 10/05/24 14:33) HIVES erythromycin base Allergy (Unknown, Verified 10/05/24 14:33) Unknown Seasonal Allergies Allergy (Unknown, Verified 10/05/24 14:33) Unknown codeine Adverse Reaction (Severe, Verified 10/05/24 14:33) severe GI upset oxycodone [Percocet] Adverse Reaction (Intermediate, Verified 10/05/24 14:33) Nausea Post menopausal: Yes HPI Comments Details: The patient is presenting with recurrence of her vaginal bleeding The patient had multiple episodes of vaginal bleeding in the few weeks prior to 01/12/2024, this was followed by: 01/01/2024 pelvic ultrasound showed a 2 mm endometrial stripe 01/06/2024 hysteroscopy D&C done, pathology showed the following: - Superficial strips of benign endometrium; no atypia identified. - Few strips of endocervical and squamous epithelium within normal limits; mucoinflammatory material and blood 03/18 FSH/LH= 125.4/89.6 The patient developed multiple episodes of vaginal bleeding for 3 months prior to visit on 06/21/2024 the following workup was done 06/17 pelvic ultrasound showed a 4 mm endometrial stripe 09/03/24 office endometrial biopsy pathology showed the following: - Inactive endometrium with lytic changes; no atypia or hyperplasia identified. - Small fragments of endocervical and squamous epithelium within normal limits Last co testing in 02/11 was negative PFSH Medical History Hx of renal calculi Heartburn Postmenopausal bleeding Diverticulosis Thyroid nodule Migraine with aura Surgical History Hx of wisdom tooth extraction Hx of colonoscopy History of left breast biopsy History of cholecystectomy (~09/2012) Family History Father History of melanoma Heart disease Paternal Grandmother History of colon cancer, Onset Age: 90 Mother Emphysema of lung Social History Household Members: None Housing: House Alcohol intake: current Alcohol intake frequency: holidays/special occasions only Patient Tobacco Use Status: Never used Tobacco service: No Current occupational status: employed 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 orientation: Straight/Heterosexual Gender identity: Female Female Reproductive History Menstrual Age of Menarche: 13 Review of Systems Const All systems reviewed & are unremarkable except as noted in HPI and below Physical Exam Vital Signs: BMI result Body Mass Index 22.1 General: Yes no CVA tenderness External Female Exam: normal external appearance and normal appearance of the urethra Speculum Exam - Vagina: normal appearance of the vagina, normal palpation, no lesions and no masses Speculum Exam - Cervix: normal appearance of the cervix, normal palpation, no lesions, no masses and nontender Bimanual exam- vagina & uterus: normal bimanual exam, normal palpation, uterine size normal, normal palpation, uterine shape normal, No Cervical tenderness present and non-tender Bimanual Exam- Adnexa, other: normal adnexae Back/Spine/Pelvis Back: no CVA tenderness Assessment & Plan Assessment & Plan (1) Postmenopausal bleeding: Comment: Recurrent Code(s): N95.0 - Postmenopausal bleeding Category: Medical Plan: Co testing done. Discussed with the patient the workup done over the last few months including EMB and hysteroscopy/ D&C pathology both negative for endometrial hyperplasia or malignancy in addition to 2 ultrasound showing endometrial thickness 4 mm and below, discussed with the patient the sensitivity, specificity, false-positive false-negative rate of endometrial stripe and endometrial sampling via D and C or office EMB pathology to detect endometrial pathology including endometrial hyperplasia and/or malignancy. Recommended either repeat hysteroscopy D&C possible polypectomy versus minimally invasive hysterectomy. All pros and cons, risks and benefits of each were discussed with the patient. Will refer to [facility] for further management possible minimally invasive hysterectomy. All questions answered, the patient verbalized understanding. Instructed the patient to call our office back in case a referral appointment is not scheduled, missed or canceled so that we will assist on rescheduling another appointment, the patient verbalized understanding agreed with the plan. Coding Level of Care Code Est Pt Level 3 (17032) Diagnoses Postmenopausal bleeding N95.0
== END 2024-10-05 15:35 | disposition home or self-care (01) ==
LOC: HO.HWS 14:23
PROVIDERS: PCP Internal Medicine; Visit Provider Obstetrics & Gynecology
DX: N95.0 Postmenopausal bleeding (principal)
CPT/HCPCS: 99213

== ENCOUNTER 2024-10-05 14:23 | Outpatient (REF) | payer OTHER, SELFPAY ==
--- OUTSIDE RECORDS SUMMARY | 2024-10-05 15:52 | XMS_ITS | Encounter Summary ---
Author Organization [facility] Address [phone] [facility] [place] [address] Care Team Providers Care Monotype Operator Name Role Phone Jed Ricardo MD Primary Care Provider Encounter Details Date Type Department Care Team (Late Contact Info) Description 03/06/2022 Procedure Pass [facility] [address] [place] [address] Social History Tobacco Use Types Packs/Day Years [...] Info) Description 10/29/2024 5:15 PM EST Appointment [facility] [address] [place] [address] Rashaun Dunn DO [address] [place] [address] 01/13/2025 3:40 PM EDT Office Visit [facility] [address] [place] [address] Rashaun Dunn DO [address] [place] [address] documented as of this encounter Visit Diagnoses Not on filedocumented in this encounter Care Teams Monotype Operator Relationship Specialty Start Date End Date Jed Ricardo MD [address] [place] [address] Dr Lawler, CHYNA [address] PCP - General Internal Medicine 11/07/21 documented as of this encounter Additional Source Comments The information contained in this document represents components of the legal health record. It is not the complete legal health record.[facility]
--- OUTSIDE RECORDS SUMMARY | 2024-10-05 15:52 | XMS_ITS | Encounter Summary ---
Author Organization [facility] Address [phone] [facility] [place] [address] Care Team Providers Care Associate Professor Name Role Phone Jed Ricardo MD Primary Care Provider Encounter Details Date Type Department Care Team (Late Contact Info) Description 03/05/2022 Procedure Pass [facility] [address] [place] [address] Social History Tobacco Use Types Packs/Day Years [...] Info) Description 10/29/2024 5:15 PM EST Appointment [facility] [address] [place] [address] Rashaun Dunn DO [address] [place] [address] 01/13/2025 3:40 PM EDT Office Visit [facility] [address] [place] [address] Rashaun Dunn DO [address] [place] [address] documented as of this encounter Visit Diagnoses Not on filedocumented in this encounter Care Teams Associate Professor Relationship Specialty Start Date End Date Jed Ricardo MD [address] [place] [address] Dr Lawler, CHYNA [address] PCP - General Internal Medicine 11/07/21 documented as of this encounter Additional Source Comments The information contained in this document represents components of the legal health record. It is not the complete legal health record.[facility]
--- OUTSIDE RECORDS SUMMARY | 2024-10-05 15:52 | XMS_ITS | Clinical Summary ---
Author Organization [facility] Address [phone] [address] [place] [address] Care Team Providers Care Welder Plastic Name Role Phone Jed Ricardo MD Primary Care Provider Allergies Active Allergy Reactions Criticality Noted Date Comments Sulfamethoxazole-Trimethoprim Rash Low 2021 Oxycodone 08/21/2022 [place] Pollen-Short Ragweed Itching,Sneezing 03/2022 Medications No known [...] Info) Description 10/29/2024 5:15 PM EST Appointment [address] [address] Rashaun Dunn DO [address] [place] [address] 01/13/2025 3:40 PM EDT Office Visit [facility] [address] [place] [address] [place] [address] Rashaun Dunn DO [address] [place] [address] Health Maintenance Due Date Last Done Comments [...] this topic Medical Devices Not on file Sulema Ro Personal/Family Self 1970 [address] [facility] [place] [address] Sulema, Ro Personal/Family Self 1970 [address] [facility] [place] [address] Sulema, Ro Personal/Family Self 1970 [address] [facility] [place] [address] Sulema, Ro Personal/Family Self 1970 [address] [facility] [place] [address] Sulema, Ro Personal/Family Self 1970 [address] [facility] [place] [address] Sulema, Ro Personal/Family Self 1970 [address] [place] [address] Sulema, Ro Personal/Family Self 1970 [address] [facility] [place] [address] Sulema, Ro Personal/Family Self 1970 [address] [facility] [place] [address] Care Teams Welder Plastic Relationship Specialty Start Date End Date Jed Ricardo MD [address] [place] [address] [place] [address] PCP - General Internal Medicine 11/07/21 Additional Source Comments The information contained in this document represents components of the legal health record. It is not the complete legal health record.[facility]
--- OUTSIDE RECORDS SUMMARY | 2024-10-05 15:52 | XMS_ITS | Encounter Summary ---
Author Organization [facility] Address [phone] [facility] access [facility] [place] [address] Care Team Providers Care Research Physiologist Name Role Phone Jed Ricardo MD Primary Care Provider Encounter Details Date Type Department Care Team (Late Contact Info) Description 01/16/2024 Procedure Pass [facility] [address] [place] [phone] Social History Tobacco Use Types Packs/Day Years [...] Info) Description 10/29/2024 5:15 PM EST Appointment [facility] [place] [address] [place] [address] Rashaun Dunn DO [address] [place] [address] 01/13/2025 3:40 PM EDT Office Visit [facility] [place] [address] [place] [address] [email or web address] documented as of this encounter Visit Diagnoses Not on filedocumented in this encounter Care Teams Research Physiologist Relationship Specialty Start Date End Date Jed Ricardo MD [address] [place] [address] [place] [address] PCP - General Internal Medicine 11/07/21 documented as of this encounter Additional Source Comments The information contained in this document represents components of the legal health record. It is not the complete legal health record.[facility]
--- OUTSIDE RECORDS SUMMARY | 2024-10-05 15:52 | XMS_ITS | Clinical Summary ---
Author Organization [email or web address] Address [address] [place] [address] Care Team Providers Care Medical Laboratory Technician Name Role Phone Pcp, No Primary Care Provider [phone] Allergies Active Allergy Reactions Criticality Noted Date Comments Sulfamethoxazole-Trimethopr im 08/21/2022 Oxycodone 08/21/2022 Malcolm Pollen-Short Ragweed Itching 03/01/2022 Other reaction(s): Sneezing [...] Adults 18 yrs or above (or HM Modifier)([facility]) 1989 Hepatitis C Virus Infection in Adolescents and Adults: Screening (or Modifier) ([facility]) 1989 SDOH Screening Reminder: Dasha muhammad for all adults ([facility]) 1989 Tobacco Smoking Cessation: i n Adults excluding Women: Behavioral and Pharmacotherapy Interventions ([facility]) 1989 DTaP/Tdap/Td Vaccines ([facility]) (1 - Tdap) 1990 Cervical Cancer Screenin 1-65 yrs of age (or Modifier) 1992 Cervical Cancer Screening: P ap every 3 yrs pts age 21-65 1992 Cervical Cancer: Pap Screeni ng with Modifier timing ([facility]) 1992 Cervical Cancer: hrHPV alone or with cotesting Pap for Pts 30-65yrs screening every 5yrs ([facility]) 1992 Colorectal Cancer Screening 45 -75 Yrs (or HM Modifier) 2016 Colorectal Cancer: FLEXIBLE SIGMOIDOSCOPY Screening every 5 yrs 2016 Colorectal Cancer: Fecal Immunochemical Test (FIT) Annually [facility] 2016 Colorectal Cancer: High-sens itivity gFOBT Screening Annually [facility] 2016 Colorectal Cancer: Stool Col oguard Screening every 3 yrs 2016 Colorectal Cancer:CT Colonog lupillo Screening every 5 yrs 2016 Lipid Screening: Every 5 yrs for Women aged 45+ (or HM Modifier) ([facility]) 2017 Breast Cancer: Screening Dasha sabina age 50-74 yrs (or HM Modifier)([facility]) 2021 Zoster/Shingles Vaccine Seri es Screening: Adults aged 18+ yrs (or HM Modifiers)([facility]) (1 of 2) 2021 Flu Vaccination: Yearly for ages 18mos through 64 years (or Modifier)([facility]) 03/25/2024 06/11/2023 COVID-19 Vaccine Screening: Initial Series and Booster Status ([facility]) ( - 2023- season) 2024 Pneumococcal Vaccination Scr eening: Pts 0-19 & 19-64 yrs of age ([facility]) Aged Out No longer eligible b ased on patient's age to complete this topic Medical Devices Not on file Insurance [facility] Care Teams Medical Laboratory Technician Relationship Specialty Start Date End Date Pcp, Margarita PCP - General Family Medicine 08/21/22
[2024-10-13 14:26] LABS: HPV Genotype 16 Negative (Negative); HPV Genotype 18 Negative (Negative); HPV High Risk Negative (Negative)
== END 2024-10-05 14:24 | disposition home or self-care (01) ==
LOC: HO.LNP 14:23
PROVIDERS: PCP Internal Medicine; Visit Provider Obstetrics & Gynecology
DX: Z01.419 Encounter for gynecological examination (general) (routine) without abnormal findings (principal); N95.0 Postmenopausal bleeding; Z11.51 Encounter for screening for human papillomavirus (HPV)
CPT/HCPCS: 87626; 88175

== ENCOUNTER 2024-10-09 08:00 | Outpatient (REF) | payer OTHER, SELFPAY ==
--- OUTSIDE RECORDS SUMMARY | 2024-10-09 08:03 | XMS_ITS | Clinical Summary ---
Author Organization [employer] Address [address] [place] [address] Care Team Providers Care Greek Professor Name Role Phone Pcp, No Primary Care Provider Allergies Active Allergy Reactions Criticality Noted Date Comments Sulfamethoxazole-Trimethopr im 08/21/2022 Oxycodone 08/21/2022 [place] Pollen-Short Ragweed Itching 03/01/2022 Other reaction(s): Sneezing [...] Adults 18 yrs or above (or HM Modifier)([facility]) 1989 Hepatitis C Virus Infection in Adolescents and Adults: Screening (or Modifier) ([facility]) 1989 SDOH Screening Reminder: Dasha muhammad for all adults ([facility]) 1989 Tobacco Smoking Cessation: i n Adults excluding Women: Behavioral and Pharmacotherapy Interventions ([facility]) 1989 DTaP/Tdap/Td Vaccines ([facility]) (1 - Tdap) 1990 Cervical Cancer Screenin 1-65 yrs of age (or Modifier) 1992 Cervical Cancer Screening: P ap every 3 yrs pts age 21-65 1992 Cervical Cancer: Pap Screeni ng with Modifier timing ([facility]) 1992 Cervical Cancer: hrHPV alone or with cotesting Pap for Pts 30-65yrs screening every 5yrs ([facility]) 1992 Colorectal Cancer Screening 45 -75 Yrs (or HM Modifier) 2016 Colorectal Cancer: FLEXIBLE SIGMOIDOSCOPY Screening every 5 yrs 2016 Colorectal Cancer: Fecal Immunochemical Test (FIT) Annually [facility] 2016 Colorectal Cancer: High-sens itivity gFOBT Screening Annually [facility] 2016 Colorectal Cancer: Stool Col oguard Screening every 3 yrs 2016 Colorectal Cancer:CT Colonog lupillo Screening every 5 yrs 2016 Lipid Screening: Every 5 yrs for Women aged 45+ (or HM Modifier) ([facility]) 2017 Breast Cancer: Screening Dasha sabina age 50-74 yrs (or HM Modifier)([facility]) 2021 Zoster/Shingles Vaccine Seri es Screening: Adults aged 18+ yrs (or HM Modifiers)([facility]) (1 of 2) 2021 Flu Vaccination: Yearly for ages 18mos through 64 years (or Modifier)([facility]) 03/25/2024 06/11/2023 COVID-19 Vaccine Screening: Initial Series and Booster Status ([facility]) ( - 2023- season) 2024 Pneumococcal Vaccination Scr eening: Pts 0-19 & 19-64 yrs of age ([facility]) Aged Out No longer eligible b ased on patient's age to complete this topic Medical Devices Not on file Insurance [facility] Care Teams Greek Professor Relationship Specialty Start Date End Date Pcp, Margarita PCP - General Family Medicine 08/21/22
--- OUTSIDE RECORDS SUMMARY | 2024-10-09 08:03 | XMS_ITS | Encounter Summary ---
Author Organization [facility] Address [phone] [facility] [place] [address] Care Team Providers Care Sanitary Aide Name Role Phone Jed Ricardo MD Primary Care Provider Encounter Details Date Type Department Care Team (Late Contact Info) Description 03/06/2022 Procedure Pass [facility] Cardiovascular And Interventional Radiology [address] [place] [address] Social History Tobacco Use Types Packs/Day Years [...] Info) Description 10/29/2024 5:15 PM EST Appointment [facility] [address] [place] [address] Rashaun Dunn DO [address] [place] [address] 01/13/2025 3:40 PM EDT Office Visit [facility] [address] [place] [address] Rashaun Dunn DO [address] [place] [address] documented as of this encounter Visit Diagnoses Not on filedocumented in this encounter Care Teams Sanitary Aide Relationship Specialty Start Date End Date Jed Ricardo MD [address] [place] [address] Dr [place], CHYNA [address] PCP - General Internal Medicine 11/07/21 documented as of this encounter Additional Source Comments The information contained in this document represents components of the legal health record. It is not the complete legal health record.[facility]
--- OUTSIDE RECORDS SUMMARY | 2024-10-09 08:03 | XMS_ITS | Encounter Summary ---
Author Organization [facility] Address [phone] [facility] [place] [address] Care Team Providers Care Disability Hearing Officer Name Role Phone Jed Ricardo MD Primary Care Provider Encounter Details Date Type Department Care Team (Late Contact Info) Description 03/05/2022 Procedure Pass [facility] [address] [place] [phone] Social History Tobacco Use Types Packs/Day Years [...] Info) Description 10/29/2024 5:15 PM EST Appointment [facility] [address] [place] [address] Rashaun Dunn DO [address] [place] [address] [email or web address] 01/13/2025 3:40 PM EDT Office Visit [facility] [address] [place] [address] Rashaun Dunn DO [address] [place] [address] documented as of this encounter Visit Diagnoses Not on filedocumented in this encounter Care Teams Disability Hearing Officer Relationship Specialty Start Date End Date Jed Ricardo MD [address] [place] [address] Dr [place], CHYNA [address] PCP - General Internal Medicine 11/07/21 documented as of this encounter Additional Source Comments The information contained in this document represents components of the legal health record. It is not the complete legal health record.[facility]
--- OUTSIDE RECORDS SUMMARY | 2024-10-09 08:03 | XMS_ITS | Clinical Summary ---
Author Organization [facility] Address [phone] [address] [place] [address] Care Team Providers Care Nail Mill Worker Name Role Phone Jed Ricardo MD Primary Care Provider Allergies Active Allergy Reactions Criticality Noted Date Comments Sulfamethoxazole-Trimethoprim Rash Low 2021 Oxycodone 08/21/2022 [place] Pollen-Short Ragweed Itching,Sneezing 03/2022 Medications No known [...] Info) Description 10/29/2024 5:15 PM EST Appointment [address] [address] Rashaun Dunn DO [address] [place] [address] 01/13/2025 3:40 PM EDT Office Visit [facility] [address] [place] [address] [place] [address] Rashaun Dunn DO [address] [place] [address] [email or web address] Health Maintenance Due Date Last Done Comments [...] file Sulema Ro Personal/Family Self 1970 [address] [place] [address] Sulema, Ro Personal/Family Self 1970 [address] [place] [address] Sulema, Ro Personal/Family Self [address] [place] [address] Sulema, Ro Personal/Family Self [address] [place] [address] Sulema, Ro Personal/Family Self [address] [facility] [place] [address] Sulema, Ro Personal/Family Self 1970 [address] [facility] [place] [address] Sulema, Ro Personal/Family Self [address] [facility] [place] [address] Sulema, Ro Personal/Family Self 1970 [address] [place] [address] Care Teams Nail Mill Worker Relationship Specialty Start Date End Date Jed Ricardo MD [address] [place] [address] [place] [address] PCP - General Internal Medicine 11/07/21 Additional Source Comments The information contained in this document represents components of the legal health record. It is not the complete legal health record.[facility]
[2024-10-09 08:12] LABS: MANUAL DIFF FLAG NO
[2024-10-09 08:34] LABS: Basophils Absolute Auto 0.1 X10*3/uL (0.0-0.2); Basophils Percent Auto 1.5 % (0-2); Eosinophils Absolute Auto 0.1 X10*3/uL (0.0-0.4); Hematocrit 44.6 % (37.0-47.0); Hemoglobin 14.9 g/dl (12.0-16.0); Imm Gran Abs Auto 0.05 X10*3/uL (0.00-0.03); Imm Gran Pct Auto 1.1 % (0.0-0.4); Lymphocytes Absolute Auto 1.3 X10*3/uL (1.2-4.9); Mean Corpuscular HGB Conc 33.4 g/dl (31.0-35.0); Mean Corpuscular Volume 89.7 fL (80.0-98.0); Mean Platelet Volume 10.7 fL (9.4-12.3); Monocytes Absolute Auto 0.4 X10*3/uL (0.1-1.2); Monocytes Percent Auto 8.1 % (2-11); Neutrophils Absolute Auto 2.8 x10*3/uL (2.0-8.3); Neutrophils Percent Auto 59.3 % (45-73); Platelet Count 294 X10*3/uL (160-400); Red Blood Count 4.97 X10*6/uL (4.20-5.50); Red Cell Distribution Width 12.7 % (11.0-16.0); White Blood Count 4.7 X10*3/uL (4.8-10.8)
[2024-10-09 09:18] LABS: Alanine Aminotransferase 14 U/L (0-31); Albumin Level 4.2 g/dL (3.5-5.0); Alkaline Phosphatase 62 U/L (39-117); Anion Gap 12 (12-20); Aspartate Amino Transferase 19 U/L (5-31); Bilirubin Total 0.9 mg/dL (0.0-1.0); Blood Urea Nitrogen 11 mg/dL (9-16); Calcium 9.5 mg/dL (8.4-10.2); Carbon Dioxide 26 mmol/L (22-29); Chloride 107 mmol/L (96-108); Cholesterol 181 mg/dL (<200); Estimated Glomerular Filt Rate > 60; Glucose Fasting 90 mg/dL (60-99); HDL Cholesterol 65 mg/dL (>40); LDL Cholesterol Calculated 102 mg/dL (<100); Potassium 4.4 mmol/L (3.3-5.1); Sodium 141 mmol/L (135-145); Total Protein 7.4 g/dL (6.5-8.0); Triglycerides 72 mg/dL (<150)
[2024-10-09 09:36] LABS: Vitamin D 25-OH Total 49.9 ng/mL (>30)
[2024-10-11 02:04] LABS: Follicle Stimulating Hormone 147.5 mIU/mL; Lutenizing Hormone 110.1 mIU/mL
== END 2024-10-09 08:01 | disposition home or self-care (01) ==
LOC: HO.LAB 08:00
PROVIDERS: PCP Internal Medicine; Visit Provider Internal Medicine
DX: E04.1 Nontoxic single thyroid nodule (principal); N94.6 Dysmenorrhea, unspecified; I25.10 Atherosclerotic heart disease of native coronary artery without angina pectoris
CPT/HCPCS: 36415; 80053; 80061; 82306; 83001; 83002; 85025

== ENCOUNTER 2024-11-24 15:50 | Outpatient (REF) | payer OTHER, SELFPAY ==
--- NOTE | ~2024-11-24 | MM_ITS ---
EXAMINATION: MM SCREENING DIGITAL BREAST TOMOSYNTHESIS, BILATERAL CLINICAL INFORMATION: Screening. Asymptomatic. COMPARISON: Mammography: Comparison is made with available priors TECHNIQUE: Digital breast mammography with tomosynthesis is performed in both the craniocaudal and mediolateral oblique views along with computer-aided detection (CAD). FINDINGS: There are scattered areas of fibroglandular density (ACR BI-RADS breast composition Category b). Left marker clip. Mass with dystrophic calcifications in the upper outer right breast is stable. There are no significant masses, abnormal calcifications, or other abnormalities. MM/MM tomosynthesis screening BI IMPRESSION: No mammographic evidence of malignancy. ASSESSMENT: BI-RADS BI-RADS 2 - Benign Findings RECOMMENDATION: Routine annual mammography screening. 1 year F/U This examination should not preclude the clinical evaluation of a suspicious palpable abnormality. This patient's information was entered into a reminder system with a target due date for their next mammogram. Electronically signed by: Jenna Maciel DO 11/25/2024 10:25 AM EDT
--- OUTSIDE RECORDS SUMMARY | 2024-11-24 17:53 | XMS_ITS | Encounter Summary ---
Author Organization [facility] Address [address] [facility] [address] [place] [phone] Phone Care Team Providers Care Key Account Coordinator Name Role Phone Jed Ricardo MD Primary Care Provider Encounter Details Date Type Department Care Team (Late st Contact Info) Description 03/06/2022 Procedure Pass [facility] [address] [place] [address] Social History Tobacco Use Types Packs/Day Years [...] as of this encounter Plan of Treatment Not on file documented as of this encounter Visit Diagnoses Not on filedocumented in this encounter Care Teams Key Account Coordinator Relationship Specialty Start Date End Date Jed Ricardo MD [address] [place] [address] [place] [address] PCP - General Internal Medicine 11/07/21 documented as of this encounter Additional Source Comments The information contained in this document represents components of the legal health record. It is not the complete legal health record.[facility]
--- OUTSIDE RECORDS SUMMARY | 2024-11-24 17:53 | XMS_ITS | Clinical Summary ---
Author Organization [employer] Address [address] [place] [address] Care Team Providers Care Milk Receiver Tank Truck Name Role Phone Pcp, No Primary Care Provider Allergies Active Allergy Reactions Criticality Noted Date Comments Sulfamethoxazole-Trimethopr im 08/21/2022 Oxycodone 08/21/2022 [place] Pollen-Short Ragweed Itching 03/01/2022 Other reaction(s): Sneezing [...] Adults 18 yrs or above (or HM Modifier)([facility]) 1971 Hepatitis C Virus Infection in Adolescents and Adults: Screening (or Modifier) ([facility]) 1989 SDOH Screening Reminder: Dasha muhammad for all adults ([facility]) 1989 Tobacco Smoking Cessation: i n Adults excluding Women: Behavioral and Pharmacotherapy Interventions ([facility]) 1989 DTaP/Tdap/Td Vaccines ([facility]) (1 - Tdap) 1990 Cervical Cancer Screenin 1-65 yrs of age (or Modifier) 1992 Cervical Cancer Screening: P ap every 3 yrs pts age 21-65 1992 Cervical Cancer: Pap Screeni ng with Modifier timing ([facility]) 1992 Cervical Cancer: hrHPV alone or with cotesting Pap for Pts 30-65yrs screening every 5yrs ([facility]) 1992 Colorectal Cancer Screening 45 -75 Yrs (or HM Modifier) 2016 Colorectal Cancer: FLEXIBLE SIGMOIDOSCOPY Screening every 5 yrs 2016 Colorectal Cancer: Fecal Immunochemical Test (FIT) Annually [facility] 2016 Colorectal Cancer: High-sens itivity gFOBT Screening Annually [facility] 2016 Colorectal Cancer: Stool Col oguard Screening every 3 yrs 2016 Colorectal Cancer:CT Colonog lupillo Screening every 5 yrs 2016 Lipid Screening: Every 5 yrs for Women aged 45+ (or HM Modifier) ([facility]) 2017 Breast Cancer: Screening Dasha sabina age 50-74 yrs (or HM Modifier)([facility]) 2021 Zoster/Shingles Vaccine Seri es Screening: Adults aged 18+ yrs (or HM Modifiers)([facility]) (1 of 2) 2021 Flu Vaccination: Yearly for ages 18mos through 64 years (or Modifier)([facility]) 03/25/2024 06/11/2023 COVID-19 Vaccine Screening: Initial Series and Booster Status ([facility]) (2023- season) 2024 Pneumococcal Vaccination Scr eening: Pts 0-19 & 19-49 yrs of age ([facility]) Aged Out No longer eligible b ased on patient's age to complete this topic Medical Devices Not on file Insurance [facility] Care Teams Milk Receiver Tank Truck Relationship Specialty Start Date End Date Pcp, Margarita PCP - General Family Medicine 08/21/22
--- OUTSIDE RECORDS SUMMARY | 2024-11-24 17:53 | XMS_ITS | Encounter Summary ---
Author Organization [facility] Address [address] [place] [phone] Phone Care Team Providers Care Foxer Name Role Phone Jed Ricardo MD Primary Care Provider Reason for Visit * Reason Comments Follow-up Encounter Details Date Type Department Care Team ([facility] Contact Info) Description 11/19/2024 9:30 AM EDT Office Visit [facility] [address] [place] [address] Rashaun Dunn DO [address] [place] [address] [email or web address] Nontoxic multinodular goiter (Primary Dx) Social History Tobacco Use Types Packs/Day Years Used Date Smoking Tobacco: Never Passive Smoke Exposure: Never Smokeless Tobacco: Never Alcohol Use Standard [...] on file documented as of this encounter Last Filed Vital Signs Vital Sign Reading Time Taken Comments Blood Pressure 110/60 11/19/2024 9:40 AM EDT Pulse 57 11/19/2024 9:40 AM EDT Temperature - - Respiratory Rate - - Oxygen Saturation 99% 11/19/2024 9:40 AM EDT Inhaled Oxygen Concentration - - Weight 56.2 kg (124 lb) 11/19/2024 9:40 AM EDT Height 162.6 cm (5' 4.02 ) 11/19/2024 9:40 AM ED T Body Mass Index 21.27 11/19/2024 9:40 AM EDT documented in this encounter Patient Instructions * Patient Instructions* Rashaun Dunn DO - 11/19/2024 9:30 AM EDT Please check out at the front. You need to repeat ultrasound on 10/29/2026 this has been ordered. Maybe in August 2026 you can call the radiology department at [phone] to schedule an ultrasound.At the same time once you have obtained the date of the ultrasound you should contact our office and schedule a follow- up appointment 2 weeks later with me. documented in this encounter Progress Notes * Rashaun Dunn DO - 11/19/2024 9:30 AM EDT Presenting Complaint: 1. Nontoxic multinodular goiter History of Present Illness: 54-year-old woman with past medical history of migraines who was last seen on 02/24/2024 and now presents for follow-up of nontoxic multinodular goiter. The patient had initial ultrasound at [facility] on 10/29/2021. The right lobe measures 5.3 x 1.9 x 1.9 cm the left lobe measures 5.1 x 1.6 x 1.6 cm. The isthmus is 0.3 cm. In the right upper lobe there is a nodule measuring 2.9 x 1.7 x 1.6 cm volume of 4.17 mL which is solid, hypoechoic taller than wide lobulated classified as a TI-RADS 5 nodule. There is alsoa right lower pole nodule which is subcentimeter measuring 0.6 x 0.4 x 0.5 cm. In the left upper pole there is a nodule measuring 1.6 x 1.0 x 1.2 cm volume of 1.02 mL which is solid isoechoic with irregular margins TI-RADS 5. In the left lower pole there is a nodule measuring 2.2 x 1.2 x 1.9 TI-RADS 4 which is solid with extrathyroidal extension. I had scheduled the patient for ultrasound-guided fine-needle aspiration of the right upper pole and left upper pole nodules but she was able to get this done quicker [facility] on 03/[facility]. The right upper lobe nodule measuring 2.9 x 1.7 x 1.6 cm, the left upper pole nodule measuring 1.6 x 1.0 x 1.2 cm and the left lower pole nodule measuring 2.2 x 1.2 x 1.9 cm were biopsied and found to be benign on 03/06/2022. Repeat ultrasound on 10/29/2022 showed the following.. The right upper lobe nodule measured 2.1 x 1.9 x 3.5 cm, volume of 7.26 cm??, but instead of being classified as a TI-RADS 5 is being classified as a TI-RADS 2 which is essentially benign. They also state that there was some interval growth and most likely due to cystic component. There is significant growth again likely due to cystic accumulation and this nodule would not be biopsy again becauseits been reclassified as a TI-RADS 2 nodule which is benign and does not have to be biopsied. As for the left upper pole nodule and now measures 1.2 x 0.9 x 1.2 cm this is classified as a TI-RADS 4 nodule but it previously measured 1.6 x 1.0 x 1.2 cm so it is smaller now and therefore does not require repeat biopsy. Left lower pole nodule is now being termed left midpole and it measures 2.3 x 1.9 x 1.3 cm 2.95 cm??, previously measured 2.2 x 1.2 x 1.9 cm of 2.60 cm cube. This nodule grew by 13% which is not significant and does not require repeat biopsy. She repeated the ultrasound again at [facility] on 10/30/2023. The right upper lobe nodule that used to measure 2.1 x 1.9 x 3.5 cm volume was 7.26 mL now measures2.39 x 2.68 x 3.45 mL a volume of 11.49 mL so he has again increased in size. This nodule has grownby 58% which is considered significant but I think is just fluid accumulation and not because she has a malignant nodule. Recall that the nodule has been previously biopsied and found to be benign. I suggested to the patient that she should have alcohol ablation of this right upper pole nodule that had grown significantly. She underwent alcohol ablation on 01/16/2024 with interventional radiology. She states that she had does have a follow-up appointment with Dr. Lopez but she has already noticed a decrease in size of the nodule and has noticed a change in her voice that previously she was not aware of. Left midpole/left lower pole nodule has been classified as above in the past previously measured 2.3 x 1.9 x 1.3 cm a volume of 2.95 cm now measured 2.46 x 1.56 x 1.55 cm of volume of 3.09 mL. Has grown slightly bigger by 4.74% which is nonsignificant. This nodule did not require biopsy because thegrowth was not significant. There was another nodule measured in the left upper lobe measuring 1.35 x 1.27 x 1.01 volume of 0.9mL. The margins are not very clear on this and I think that this is a pseudonodule. In my professional opinion it does not look like a true nodule. The patient has not received any further alcohol ablation and I did request ultrasound of the thyroid gland that was done on 10/29/2024, see the report below. I reviewed the images. The right upper lobe nodule now measures 1.4 x 2.7 x 1.5 cm a volume of 3.1 mL. Recall that previously it measured 2.39x 2.68 x 3.45 mL with a volume of 11.49 mL. As for the left lobe there were 2 nodules 1 measuring 1.5 x 0.9 x 1.2 volume of 0.9 mL. This was the left upper nodule that previously measured 1.35 x 1.27 x 1.01 with a volume of 0.9 mL so is essentially the same. The left lower or left mid nodule now measures 1.8 x 1.2 x 1.5 cm a volume of 1.7 mL and this previously measured 2.46 x 1.56 x 1.55 cm with a volume of 3.09 mL so it seems to be smaller as well. Repeat thyroid function studies on 10/30/2023 showed TSH 1.57 ??IU/mL. She does not have any obstructive symptoms such as dysphagia, dysphonia, or dyspnea in supine position. Medication: No current outpatient medications on file. No current facility-administered medications for this visit. Lab Data: No visits with results within 2 Month(s) from this visit. Latest known visit with results is: Hospital Outpatient Visit on 10/30/2023 Component Date Value Ref Range Status TSH 10/30/2023 1.57 0.27 - 4.20 uIU/mL Final US Thyroid Gland Performed: 10/29/2024 at 5:41 PM Accession Number: [id number] Reason For Exam Multinodular Goiter Exam Images Show images for US Thyroid Gland All Patient Images Show images for [place] Impression Since October 30, 2023: * Decrease in size of bilateral cystic and solid thyroid nodules. * No significant change in 1.5 cm left TR 4 thyroid nodule. Glossary of terms and other information on TI-RADS (Thyroid Imaging Reporting and Data System) can be found at [email or web address].org/Clinical-Resources/[email or web address]-Systems/[email or web address] Narrative US THYROID GLAND Referring clinician's provided indication for this examination in Epic: Multinodular Goiter TECHNIQUE: Ultrasound of the thyroid. COMPARISON: US THYROID GLAND FINDINGS: Isthmus: The isthmus is 0.3 cm thick. Right thyroid: The right lobe measures 4.7 cm in sagittal dimension. A 2.7 cm cystic and solid, isoechoic upper gland nodule Is decreased as compared to prior exam, previously 3.5 cm, with decreased cystic component. TR 2. No right lymphadenopathy. Left thyroid: The left lobe measures 4.6 cm in sagittal dimension. A 1.5 solid, hypoechoic upper lobe nodule with shadowing macrocalcification previously 1.4 cm. TR 4. Previously sampled. A 1.8 cm mixed cystic and solid, isoechoic lower lung nodule, previously 2.5 cm, decreased in size and internal cystic component. TR 2. No left lymphadenopathy. Physical Exam: Vital Signs: Vitals: 11/19/24 0940 BP: 110/60 Pulse: (!) 57 SpO2: 99% body mass index is 21.27 kg/m??. Weight: [56.2 kg (124 lb)] 56.2 kg (124 lb) (11/19 0940) Gen. Exam: Impression: 1. Nontoxic multinodular goiter (Primary) Assessment & Plan: The patient has been getting yearly since 2021. Both the right upper pole and left upper pole nodule was biopsied and found to be benign. The only TI-RADS 4 nodule is the left upper pole. She has a left lobe pole nodule that is TI-RADS 2 and does not require biopsy. She did receive alcohol ablationto the right upper pole nodule that has significantly decreased from 11 to 3 mL. There were left upper pole nodule is stable and does not require repeat biopsy and as for the left lower pole nodule that appeared to decrease as well and is a TI-RADS 2 nodule so it does not require biopsy. So at thispoint I recommend repeating the ultrasound in 2 years time by again by 10/29/2026. Orders: - US Thyroid Gland - TSH with reflex Return To be scheduled at a later date, for Thyroid Disorder. I have maintained a longitudinal relationship with the patient, overseeing the care of of their nontoxic multinodular goiter. This has significantly influence my decision-making and treatment plans during today's encounter. ?Total time spent for this visit in [id number] and non [id number] time reviewing, obtaining, and documenting clinical information, coordinating with the care team and other specialists, and counseling the patient: 25 minutes. Rashaun Dunn DO documented in this encounter Miscellaneous Notes * Assessment & Plan Note - Rashaun Dunn DO - 11/19/2024 10:08 AM EDTAssociated Problem(s): Nontoxic multinodular goiter The patient has been getting yearly since 2021. Both the right upper pole and left upper pole nodule was biopsied and found to be benign. The only TI-RADS 4 nodule is the left upper pole. She has a left lobe pole nodule that is TI-RADS 2 and does not require biopsy. She did receive alcohol ablationto the right upper pole nodule that has significantly decreased from 11 to 3 mL. There were left upper pole nodule is stable and does not require repeat biopsy and as for the left lower pole nodule that appeared to decrease as well and is a TI-RADS 2 nodule so it does not require biopsy. So at thispoint I recommend repeating the ultrasound in 2 years time by again by 10/29/2026. documented in this encounter Plan of Treatment Scheduled Orders Name Type Priority Associated Diagnoses Orde r Schedule US Thyroid Gland Imaging Routine Nontoxic multinodular goiter Expected: 10/29/2026, Expires: 11/19/2026 TSH with reflex Lab Routine Nontoxic multinodular goiter Expected: 10/29/2026, Expires: 11/19/2026 documented as of this encounter Visit Diagnoses Diagnosis Nontoxic multinodular goiter- Primary documented in this encounter Care Teams Foxer Relationship Specialty Start Date End Date Jed Ricardo MD [address] [place] [address] [address] [place] [address] PCP - General Internal Medicine 11/07/21 documented as of this encounter Additional Source Comments The information contained in this document represents components of the legal health record. It is not the complete legal health record.[facility]
--- OUTSIDE RECORDS SUMMARY | 2024-11-24 17:53 | XMS_ITS | Encounter Summary ---
Author Organization [facility] Address [address] [facility] [address] [place] [phone] Phone Care Team Providers Care Power Plant Assistant Name Role Phone Jed Ricardo MD Primary Care Provider Encounter Details Date Type Department Care Team (Late st Contact Info) Description 03/05/2022 Procedure Pass [facility] [address] [place] [address] Social History Tobacco Use Types Packs/Day Years [...] on filedocumented in this encounter Care Teams Power Plant Assistant Relationship Specialty Start Date End Date Jed Ricardo MD [address] [place] [address] [place] [address] PCP - General Internal Medicine 11/07/21 documented as of this encounter Additional Source Comments The information contained in this document represents components of the legal health record. It is not the complete legal health record.[facility]
--- OUTSIDE RECORDS SUMMARY | 2024-11-24 17:53 | XMS_ITS | Clinical Summary ---
Author Organization [facility] Address [address] [address] Phone Care Team Providers Care Hand Candle Molder Name Role Phone Jed Ricardo MD Primary Care Provider Allergies Active Allergy Reactions Criticality Noted Date Comments Sulfamethoxazole-Trimethoprim Rash Low 2021 Oxycodone 08/21/2022 [place] Pollen-Short Ragweed Itching,Sneezing 03/2022 Medications No known medications Active Problems Problem Noted Date Diagnosed Date Nontoxic multinodular goiter 03/01/2022 Assessment & Plan (11/19/2024 10:08 AM EDT): The patient has been getting yearly since 2021. Both the right upper pole and left upper pole nodule was biopsied and found to be benign. The only TI-RADS 4 nodule is the left upper pole. She has a left lobe pole nodule that is TI-RADS 2 and does not require biopsy. She did receive alcohol ablation to the right upper pole nodule that has significantly decreased from 11 to 3 mL. There were left upper pole nodule is stable and does not require repeat biopsy and as for the left lower pole nodule that appeared to decrease as well and is a TI-RADS 2 nodule so it does not require biopsy. So at this point I recommend repeating the ultrasound in 2 years time by again by 10/29/2026. Assessment & Plan (02/24/2024 9:00 AM EDT): [...] asked her to do lab work today. Encounters Date Type Department Care Team Description 11/19/2024 9:30 AM EDT Office Visit [facility] [address] [place] [address] Rashaun Dunn DO Nontoxic multinodular goiter (Primary Dx) 10/29/2024 5:01 PM EST - 10/29/2024 11:59 PM EST Hospital Encounter [address] [address] Rashaun Dunn DO Discharge Disposition: Home or Self Care from Last 3 Months Family History Medical History Relation Comments Melanoma [...] Pulse 57 11/19/2024 9:40 AM EDT Temperature 36.6 ??C (97.9 ??F) 02/24/2024 8:23 AM ED T Respiratory Rate 12 01/16/2024 8:46 AM EDT Oxygen Saturation 99% 11/19/2024 9:40 AM EDT Inhaled Oxygen Concentration - - Weight 56.2 kg (124 lb) 11/19/2024 9:40 AM EDT Height 162.6 cm (5' 4.02 ) 11/19/2024 9:40 AM ED T Body Mass Index 21.27 11/19/2024 9:40 AM EDT Plan of Treatment Health Maintenance Due Date Last Done Comments Adult Td,Tdap Booster 1971 LIPID PANEL 1971 DEPRESSION SCREENING 1983 HEPATITIS C SCREENING 1989 HIV ONE-TIME SCREENING (18-6 5 YEARS) 1989 PAP SMEAR 1992 MAMMOGRAM 2011 COLOGUARD 2016 COLONOSCOPY 2016 COLORECTAL CANCER SCREENING 2016 FIT TEST 2016 FOBT 2016 SIGMOIDOSCOPY 2016 VIRTUAL COLONOSCOPY 2016 PNEUMOCOCCAL VACCINES (50+ y ears) (1 of 1 - PCV) 2021 ZOSTER VACCINES (1 of 2) 2021 INFLUENZA VACCINE (#1) 2024 COVID-19 VACCINE ( - 2023-2 5 season) 2024 SMOKING STATUS [...] this topic Medical Devices Not on file Procedures Procedure Name Priority Date/Time Associated Diagnosis Comments US THYROID GLAND Routine 10/29/2024 5:41 PM EST Nontoxic multinodular goiter from Last 3 Months Results * US Thyroid Gland (10/29/2024 5:41 PM EST) Anatomical Region Laterality Modality Neck, Head, Chest Ultrasound 10/29/2024 5:54 PM EST Impressions 10/29/2024 7:19 PM EST Since October 30, 2023: * ??Decrease in size of bilateral cystic and solid thyroid nodules. * ??No significant change in 1.5 cm left TR 4 thyroid nodule. Glossary of terms and other information on TI-RADS (Thyroid Imaging Reporting and Data System) can be found at [email or web address].org/Clinical-Resources/Hsjfbhkbq-fgn-Grfj-Systems/TI-RADS Narrative 10/29/2024 7:19 PM EST US THYROID GLAND Referring clinician's provided indication for this examination in [facility]: Multinodular Goiter TECHNIQUE: Ultrasound of the thyroid. [...] cystic component. TR 2. No left lymphadenopathy. Procedure Note Karina Rivas MD - 10/29/2024 US THYROID GLAND Referring clinician's provided indication for this examination in [facility]:Multinodular Goiter TECHNIQUE: Ultrasound of the thyroid. COMPARISON: US THYROID GLAND FINDINGS: Isthmus: The isthmus is 0.3 cm thick. Right thyroid: The right lobe measures 4.7 cm in sagittal dimension. A 2.7 cm cystic and solid, isoechoic upper gland nodule Is decreased ascompared to prior exam, previously 3.5 cm, with decreased cysticcomponent. TR 2. No right lymphadenopathy. Left thyroid: The left lobe measures 4.6 cm in sagittal dimension. A 1.5 solid, hypoechoic upper lobe nodule with shadowingmacrocalcification previously 1.4 cm. TR 4. Previously sampled. A 1.8 cm mixed cystic and solid, isoechoic lower lung nodule, previously2.5 cm, decreased in size and internal cystic component. TR 2. No left lymphadenopathy. IMPRESSION: Since October 30, 2023: * Decrease in size of bilateral cystic and solid thyroid nodules. * No significant change in 1.5 cm left TR 4 thyroid nodule. Glossary of terms and other information on TI-RADS (Thyroid ImagingReporting and Data System) can be found [email or web address].org/Clinical-Resources/Yduskwqjf-[email or web address]-Systems/TI-RADS Rashaun CERRATO US THYROID from Last 3 Months Care Teams Hand Candle Molder Relationship Specialty Start Date End Date Jed Ricardo MD [address] [place] [address] [place] [address] PCP - General Internal Medicine 11/07/21 Additional Source Comments The information contained in this document represents components of the legal health record. It is not the complete legal health record.[facility]
--- OUTSIDE RECORDS SUMMARY | 2024-11-24 17:53 | XMS_ITS | Encounter Summary ---
Author Organization [facility] Address [address] [place] [phone] Phone Care Team Providers Care Clerk Funeral Detail Name Role Phone Jed Ricardo MD Primary Care Provider Encounter Details Date Type Department Care Team (Late st Contact Info) Description 01/16/2024 Procedure Pass [facility] [address] [place] [address] Social History Tobacco Use Types Packs/Day Years [...] on filedocumented in this encounter Care Teams Clerk Funeral Detail Relationship Specialty Start Date End Date Jed Ricardo MD [address] [place] [address] [place] [address] PCP - General Internal Medicine 11/07/21 documented as of this encounter Additional Source Comments The information contained in this document represents components of the legal health record. It is not the complete legal health record.[facility]
== END 2024-11-24 15:51 | disposition home or self-care (01) ==
LOC: HO.MAMMO 15:50
PROVIDERS: PCP Internal Medicine; Visit Provider Internal Medicine
DX: Z12.31 Encounter for screening mammogram for malignant neoplasm of breast (principal)
CPT/HCPCS: 77063; 77067

== ENCOUNTER → 2024-11-24 16:00 | Outpatient (BNV) | payer OTHER, SELFPAY | PROVIDERS: PCP Internal Medicine; Visit Provider Internal Medicine | DX: Z12.31 Encounter for screening mammogram for malignant neoplasm of breast (principal) | CPT/HCPCS: 77063; 77067 ==

== ENCOUNTER 2024-12-11 11:20 | Outpatient (REF) | payer OTHER, SELFPAY ==
--- OUTSIDE RECORDS SUMMARY | 2024-12-11 14:40 | XMS_ITS | Encounter Summary ---
Author Organization [facility] Address [address] [facility] [address] [place] [phone] Phone Care Team Providers Care Case Management Coordinator Name Role Phone Jed Ricardo MD Primary Care Provider Encounter Details Date Type Department Care Team (Late st Contact Info) Description 03/06/2022 Procedure Pass [facility] [address] [place] [address] Social History Tobacco Use Types Packs/Day Years [...] on filedocumented in this encounter Care Teams Case Management Coordinator Relationship Specialty Start Date End Date Jed Ricardo MD [address] [place] [address] [place] [address] PCP - General Internal Medicine 11/07/21 documented as of this encounter Additional Source Comments The information contained in this document represents components of the legal health record. It is not the complete legal health record.[facility]
--- OUTSIDE RECORDS SUMMARY | 2024-12-11 14:40 | XMS_ITS | Encounter Summary ---
Author Organization [facility] Address [address] [facility] [address] [place] [address] Phone Care Team Providers Care Telephoner Name Role Phone Jed Ricardo MD Primary Care Provider Encounter Details Date Type Department Care Team (Late st Contact Info) Description 03/05/2022 Procedure Pass [facility] [address] [place] [address] Social History Tobacco Use Types Packs/Day Years [...] on filedocumented in this encounter Care Teams Telephoner Relationship Specialty Start Date End Date Jed Ricardo MD [address] [place] [address] [place] [address] PCP - General Internal Medicine 11/07/21 documented as of this encounter Additional Source Comments The information contained in this document represents components of the legal health record. It is not the complete legal health record.[facility]
--- OUTSIDE RECORDS SUMMARY | 2024-12-11 14:40 | XMS_ITS | Encounter Summary ---
Author Organization [facility] Address [address] [place] [phone] Phone Care Team Providers Care Special Delivery Mail Carrier Name Role Phone Jed Ricardo MD Primary Care Provider Encounter Details Date Type Department Care Team (Late st Contact Info) Description 01/16/2024 Procedure Pass [facility] [address] [place] [address] Social History Tobacco Use Types Packs/Day Years [...] on filedocumented in this encounter Care Teams Special Delivery Mail Carrier Relationship Specialty Start Date End Date Jed Ricardo MD [address] [place] [address] [place] [address] PCP - General Internal Medicine 11/07/21 documented as of this encounter Additional Source Comments The information contained in this document represents components of the legal health record. It is not the complete legal health record.[facility]
--- OUTSIDE RECORDS SUMMARY | 2024-12-11 14:40 | XMS_ITS | Clinical Summary ---
Author Organization [facility] Address [address] [address] Phone Care Team Providers Care Tongue Stitcher Name Role Phone Jed Ricardo MD Primary Care Provider Allergies Active Allergy Reactions Criticality Noted Date Comments Sulfamethoxazole-Trimethoprim Rash Low 2021 Oxycodone 08/21/2022 [place] Pollen-Short Ragweed Itching,Sneezing 03/2022 Medications No known [...] AM EDT Office Visit [facility] [address] [place] [address] Rashaun Dunn DO Nontoxic multinodular goiter (Primary Dx) 10/29/2024 5:01 PM EST - 10/29/2024 11:59 PM EST Hospital Encounter [address] [address] Rashaun Dunn DO Discharge Disposition: Home or [...] 2021 ZOSTER VACCINES (1 of 2) 2021 COVID-19 VACCINE ( - 2023-2 5 season) [...] and Data System) can be found at [email or web address] Narrative 10/29/2024 7:19 PM EST US THYROID GLAND Referring clinician's provided indication for this examination in [facility]: Multinodular Goiter TECHNIQUE: Ultrasound of the [...] clinician's provided indication for this examination in [facility]:Multinodular Goiter TECHNIQUE: Ultrasound of the thyroid. [...] ImagingReporting and Data System) can be found [email or web address] Rashaun Dunn DO [facility] [place] THYROID from Last 3 Months Care Teams Tongue Stitcher Relationship Specialty Start Date End Date Jed Ricardo MD [address] [place] [address] [place] [address] PCP - General Internal Medicine 11/07/21 Additional Source Comments The information contained in this document represents components of the legal health record. It is not the complete legal health record.[facility]
--- OUTSIDE RECORDS SUMMARY | 2024-12-11 14:40 | XMS_ITS | Clinical Summary ---
Author Organization [facility] Address [address] [place] [address] Care Team Providers Care Paper Spooler Name Role Phone Pcp, No Primary Care Provider [phone] Allergies Active Allergy Reactions Criticality Noted Date Comments Sulfamethoxazole-Trimethopr im 08/21/2022 Oxycodone 08/21/2022 [place] Pollen-Short Ragweed Itching 03/01/2022 Other reaction(s): Sneezing [...] Adults 18 yrs or above (or HM Modifier)([facility]) 1971 Hepatitis C Virus Infection in Adolescents and Adults: Screening (or Modifier) ([facility]) 1989 SDOH Screening Reminder: Dasha muhammad for all adults ([facility]) 1989 Tobacco Smoking Cessation: i n Adults excluding Women: Behavioral and Pharmacotherapy Interventions ([facility]) 1989 DTaP/Tdap/Td Vaccines ([facility]) (1 - Tdap) 1990 Cervical Cancer Screenin 1-65 yrs of age (or Modifier) 1992 Cervical Cancer Screening: P ap every 3 yrs pts age 21-65 1992 Cervical Cancer: Pap Screeni ng with Modifier timing ([facility]) 1992 Cervical Cancer: hrHPV alone or with cotesting Pap for Pts 30-65yrs screening every 5yrs ([facility]) 1992 Colorectal Cancer Screening 45 -75 Yrs (or HM Modifier) 2016 Colorectal Cancer: FLEXIBLE SIGMOIDOSCOPY Screening every 5 yrs 2016 Colorectal Cancer: Fecal Immunochemical Test (FIT) Annually [facility] 2016 Colorectal Cancer: High-sens itivity gFOBT Screening Annually [facility] 2016 Colorectal Cancer: Stool Col oguard Screening every 3 yrs 2016 Colorectal Cancer:CT Colonog lupillo Screening every 5 yrs 2016 Lipid Screening: Every 5 yrs for Women aged 45+ (or HM Modifier) ([facility]) 2017 Breast Cancer: Screening Dahsa sabina age 50-74 yrs (or HM Modifier)([facility]) 2021 Zoster/Shingles Vaccine Seri es Screening: Adults aged 18+ yrs (or HM Modifiers)([facility]) (1 of 2) 2021 Flu Vaccination: Yearly for ages 18mos through 64 years (or Modifier)([facility]) 03/25/2024 06/11/2023 COVID-19 Vaccine Screening: Initial Series and Booster Status ([facility]) (2023- season) 2024 Pneumococcal Vaccination Scr eening: Pts 0-19 & 19-49 yrs of age ([facility]) Aged Out No longer eligible b ased on patient's age to complete this topic Medical Devices Not on file Insurance [facility] Care Teams Paper Spooler Relationship Specialty Start Date End Date Pcp, Margarita PCP - General Family Medicine 08/21/22
== END 2024-12-11 11:21 | disposition home or self-care (01) ==
LOC: HO.LNP 11:20
PROVIDERS: PCP Internal Medicine; Visit Provider Physician Assistant Medical
DX: Z13.89 Encounter for screening for other disorder (principal)

== ENCOUNTER 2024-12-11 11:20 | Outpatient (AMB) | payer OTHER, SELFPAY ==
--- NOTE | 2024-12-11 12:40 | MHC.OFFWIV ---
Intake Vital Signs 12/11/24 12:41 Height 5 ft 3 in Weight 121 lb BMI 21.4 BP 110/80 Blood Pressure Location Rt brachial Position Sitting Respiration 16 Pulse 71 Pulse Source Pulse Oximeter Temp 98.0 F Temp Source Oral Pulse Oximetry (%) 98 Oxygen Delivery Method Room Air Intake Visit Reasons: EP- cough phlegm Intake Note: Pt is here today c/o coughing up phelgm Patient Tobacco Use Status: Never used Tobacco Allergies Sulfa (Sulfonamide Antibiotics) Allergy (Intermediate, Verified 12/11/24 12:42) hives sulfamethoxazole (From BACTRIM) Allergy (Intermediate, Verified 12/11/24 12:42) HIVES trimethoprim (From BACTRIM) Allergy (Intermediate, Verified 12/11/24 12:42) HIVES erythromycin base Allergy (Unknown, Verified 12/11/24 12:42) Unknown Seasonal Allergies Allergy (Unknown, Verified 12/11/24 12:42) Unknown codeine Adverse Reaction (Severe, Verified 12/11/24 12:42) severe GI upset oxycodone (Percocet) Adverse Reaction (Intermediate, Verified 12/11/24 12:42) Nausea HPI EP- cough phlegm HPI Details Patient is a 54-year-old female who comes to the walk-in clinic feeling some hoarse voice, reactive cough, and chest congestion, despite starting Mucinex. She reports that she had been sick with an upper respiratory infection a few weeks ago, and this was resolving when she developed lower tract symptoms after being on a cruise. She denies fever or chills, weakness, lethargy, malaise or myalgias, nausea vomiting or diarrhea, severe sore throat, hearing issues or ear pain, chest pain or shortness of breath, or other significant associated symptoms PFSH Medical History Hx of renal calculi Heartburn Postmenopausal bleeding Diverticulosis Thyroid nodule Migraine with aura Surgical History Hx of wisdom tooth extraction Hx of colonoscopy History of left breast biopsy History of cholecystectomy (~09/2012) Family History Father History of melanoma Heart disease Paternal Grandmother History of colon cancer, Onset Age: 90 Mother Emphysema of lung Social History Household Members: None Housing: House Alcohol intake: current Alcohol intake frequency: holidays/special occasions only Patient Tobacco Use Status: Never used Tobacco service: No Current occupational status: employed 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 orientation: Straight/Heterosexual Gender identity: Female Female Reproductive History Menstrual Age of Menarche: 13 Review of Systems Const All systems reviewed & are unremarkable except as noted in HPI and below Physical Exam Vital Signs: Last Vital Signs Temp 98.0 F 12/11/24 12:41 Pulse 71 12/11/24 12:41 Resp 16 12/11/24 12:41 BP 110/80 12/11/24 12:41 Pulse Ox 98 12/11/24 12:41 Oxygen Delivery Method Room Air 12/11/24 12:41 BMI result Body Mass Index 21.4 Const General: cooperative, comfortable, no acute distress, alert, awake, Physically active and well groomed; No anxious, diaphoretic, intoxicated appearing, poor hygiene or tired appearing Nutritional Appearance: average body habitus Orientation/consciousness: oriented to person Limitations: no limitations HEENT Head: Yes normal to inspection, Yes normocephalic and Yes atraumatic Ears: hearing grossly normal bilaterally, external ears normal, TM's normal bilaterally and EAC's normal General nose exam: Normal external nose present, Normal nares present, Normal nasal mucous membranes and turbinates present, Normal septum present and No nasal discharge present Face and sinus: Yes normal facial exam, Yes sinuses nontender and Yes face symmetric Mouth: Normal oral and palatal mucosa present, lip normal and tongue normal Throat: Yes posterior oropharynx normal, No peritonsillar mass, No postnasal drainage, No uvular edema and No cobblestoning Eyes General: appearance normal, both eyes and all related structures Chest Chest palpation & inspection: normal palpation of entire chest wall Resp Effort & Inspection: normal respiratory effort, able to speak in complete sentences, no audible wheezes, no grunting, not labored, no nasal flaring, no pursed lip breathing, no respiratory distress, no retractions, No prolonged expiratory phase and symmetric chest movement Auscultation: clear to auscultation bilaterally, no crackles, no rales, rhonchi, no wheezes, lung sounds not diminished and No rub present Cardio Palpation: normal PMI Rate: regular rate Rhythm: regular rhythm Heart sounds: S1 normal heart sound present and S2 normal heart sound present Skin Other: Good color, warm and dry Neuro General: oriented to person Psych Appearance: grossly normal Mental Status: mental status grossly normal Speech and movement: Normal speech and movement present Affect: normal affect Attitude: cooperative Thought process: Normal thought process present Insight: Good insight present (Psych) Judgement: Good judgement present (Psych) Assessment & Plan Assessment & Plan (1) Lower resp. tract infection: Code(s): J22 - Unspecified acute lower respiratory infection Plan Patient is a 54-year-old female who recently returned from a cruise, and is developing symptoms consistent of acute bronchitis. She had an apparent upper respiratory infection a few weeks ago that had seemed to be resolving prior to this starting. She was negative for COVID initially. Pending flu COVID and RSV at this point. We will treat with benzonatate, and she declined steroid course today. She requests azithromycin as this has cleared similar courses for her in the past, although we discussed that she might want to hold off to see if it improves on its own. She knows to follow up if symptoms persist or worsen, or go to the emergency department with worrisome symptoms. Orders: Orders SARS-CoV2/FLU/RSV 12/11/24 R09.89 - Other specified symptoms and signs involving the circulatory and respiratory systems Medications: New azithromycin take 500 mg today (day 1), then 250 mg for 4 days (days 2-5) PO 6 tabs 0RF benzonatate 200 mg PO BID-TID PRN 30 caps 0RF cough Coding Level of Care Code Est Pt Level 4 (14418) Diagnoses Lower resp. tract infection J22
[2024-12-11 12:41] VITALS: BP 110/80; PULSE 71; RESP 16; TEMP 36.7; O2SAT 98; BMI 21.4
== END 2024-12-11 14:59 | disposition home or self-care (01) ==
LOC: HO.HMCWIC 11:20
PROVIDERS: PCP Internal Medicine; Visit Provider Physician Assistant Medical
DX: J22 Unspecified acute lower respiratory infection (principal)

== ENCOUNTER 2025-03-29 12:03 | Outpatient (REF) | payer OTHER, SELFPAY ==
--- OUTSIDE RECORDS SUMMARY | 2025-03-29 12:59 | XMS_ITS | Clinical Summary ---
Author Organization [facility] [employer] Address [address] [place] [address] Care Team Providers Care Chip Mucker Name Role Phone Pcp, No Primary Care Provider [phone] Allergies Active Allergy Reactions Criticality Noted Date Comments Sulfamethoxazole-Trimethopr im 08/21/2022 Oxycodone 08/21/2022 [place] Pollen-Short Ragweed Itching 03/01/2022 Other reaction(s): Sneezing [...] 83 12/16/2022 11:43 AM EDT Temperature 36.8 C (98.3 F) 12/16/2022 11:43 AM EDT Respiratory Rate 17 12/16/2022 11:43 AM EDT [...] yrs or above (or HM Modifier)([facility]) 1989 Hepatitis C Virus Infection in Adolescents and Adults: Screening (or Modifier) ([facility]) 1989 [facility] Screening Reminder: Dasha muhammad for all adults ([facility]) 1989 Tobacco Smoking Cessation: i n Adults excluding Women: Behavioral and Pharmacotherapy Interventions ([facility]) 1989 DTaP/Tdap/Td Vaccines ([facility]) (1 - Tdap) 1990 Cervical Cancer Screenin 1-65 yrs of age (or Modifier) 1992 Cervical Cancer Screening: P ap every 3 yrs pts age 21-65 1992 Cervical Cancer: Pap Screeni ng with Modifier timing ([facility]) 1992 Cervical Cancer: hrHPV alone or with cotesting Pap for Pts 30-65yrs screening every 5yrs ([facility]) 1992 Colorectal Cancer Screening 45 -75 Yrs (or HM Modifier) 2016 Colorectal Cancer: FLEXIBLE SIGMOIDOSCOPY Screening every 5 yrs 2016 Colorectal Cancer: Fecal Imm unochemical Test (FIT) Annually [facility] 2016 Colorectal Cancer: High-sens itivity gFOBT Screening Annually [facility] 2016 Colorectal Cancer: Stool Col oguard Screening every 3 yrs 2016 Colorectal Cancer:CT Colonog lupillo Screening every 5 yrs 2016 Breast Cancer: Screening Dasha muhammad age 50-74 yrs (or HM Modifier)([facility]) 2021 Pneumococcal Vaccination Scr eening: Patients 50+ yrs of age ([facility]) (1 of 1 - PCV) 2021 Zoster/Shingles Vaccine Seri es Screening: Adults aged 18+ yrs (or HM Modifiers)([facility]) (1 of 2) 2021 COVID-19 Vaccine Screening: Initial Series and Booster Status ([facility]) ( - 2023- season) 2024 Flu Vaccination: Yearly for ages 18mos through 64 years (or Modifier)([facility]) 03/25/2025 06/11/2023 Medical Devices Not on file Insurance [facility] Care Teams Chip Mucker Relationship Specialty Start Date End Date Pcp, No PCP - General Family Medicine 08/21/22
[2025-03-29 17:09] LABS: Bacterial Vaginosis PCR NEGATIVE (Negative); Candida Group PCR NOT DETECTED (Not Detect); Candida glab krusei PCR NOT DETECTED (Not Detect); Trichomonas vaginalis PCR NOT DETECTED (Not Detect)
== END 2025-03-29 12:04 | disposition home or self-care (01) ==
LOC: HO.LNP 12:03
PROVIDERS: PCP Internal Medicine; Visit Provider Obstetrics & Gynecology
DX: N76.0 Acute vaginitis (principal); R23.2 Flushing
CPT/HCPCS: 81515

== ENCOUNTER 2025-03-29 12:03 | Outpatient (AMB) | payer OTHER, SELFPAY ==
[2025-03-29 12:05] VITALS: BMI 21.4
--- NOTE | 2025-03-29 12:05 | A.OFFVIS_ITS ---
Vital Signs 03/29/25 12:05 Height 5 ft 3 in Weight 121 lb BMI 21.4 Intake Visit Reasons: Vaginal odor Mail Distributor Required: No Information Interpreted: non-clinical & clinical Power Transformer Repairer: Power Transformer Repairer Present (Beckie Medel ERIKA) Accompanied by: Self / Same As Patient Allergies Sulfa (Sulfonamide Antibiotics) Allergy (Intermediate, Verified 03/29/25 12:06) hives sulfamethoxazole (From BACTRIM) Allergy (Intermediate, Verified 03/29/25 12:06) HIVES trimethoprim (From BACTRIM) Allergy (Intermediate, Verified 03/29/25 12:06) HIVES erythromycin base Allergy (Unknown, Verified 03/29/25 12:06) Unknown Seasonal Allergies Allergy (Unknown, Verified 03/29/25 12:06) Unknown codeine Adverse Reaction (Severe, Verified 03/29/25 12:06) severe GI upset oxycodone (Percocet) Adverse Reaction (Intermediate, Verified 03/29/25 12:06) Nausea HPI Comments Details: Presenting complaining of vulvovaginal itching associated with foul odor discharge over the last few days. In addition the patient is having hot flashes insomnia with anxiety and is interested in discussing different options of treatment PFSH Medical History Hx of renal calculi Heartburn Postmenopausal bleeding Diverticulosis Thyroid nodule Migraine with aura Surgical History (Updated 03/29/25 @ 12:26 by Mark Ashley MD) H/O total hysterectomy with bilateral salpingo-oophorectomy (BSO) Hx of wisdom tooth extraction Hx of colonoscopy History of left breast biopsy History of cholecystectomy (~09/2012) Family History Father History of melanoma Heart disease Paternal Grandmother History of colon cancer, Onset Age: 90 Mother Emphysema of lung Social History Household Members: None Housing: House Alcohol intake: current Alcohol intake frequency: holidays/special occasions only Patient Tobacco Use Status: Never used Tobacco service: No Current occupational status: employed 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 orientation: Straight/Heterosexual Gender identity: Female Female Reproductive History Menstrual Age of Menarche: 13 Review of Systems Const All systems reviewed & are unremarkable except as noted in HPI and below Physical Exam Vital Signs: BMI result Body Mass Index 21.4 General: Yes no CVA tenderness External Female Exam: normal external appearance and normal appearance of the urethra Speculum Exam - Vagina: normal appearance of the vagina, normal palpation, no lesions and no masses Speculum Exam - Cervix: normal appearance of the cervix, normal palpation, no lesions, no masses and nontender Bimanual exam- vagina & uterus: normal bimanual exam, normal palpation, uterine size normal, normal palpation, uterine shape normal, No Cervical tenderness present and non-tender Bimanual Exam- Adnexa, other: normal adnexae Back/Spine/Pelvis Back: no CVA tenderness Assessment & Plan Assessment & Plan (1) Vulvovaginitis: Code(s): N76.0 - Acute vaginitis Category: Medical Plan: Bacterial Vaginosis panel taken, Terazol 0.8% q.h.s. for 3 days with Flagyl 500 mg p.o. b.i.d. for 7 days was sent to the patient's pharmacy. The patient was instructed to call if symptoms don't improve in 48 hours. (2) Hot flashes: Code(s): R23.2 - Flushing Category: Medical Plan: Discussed with the patient the options of treatment of hot flashes including hormonal replacement therapy, all the pros, cons, risks and benefits (benefits= prevention of hot flashes, atrophic vaginitis, osteoporosis, decrease colon ca risk; also discussed with the patient the risks of [place], Breast ca, DVT, PE, Strokes). In addition, discussed with the patient non hormonal treatment options for hot flashes treatment in surgical menopausal patient. Options discussed with the patient include the following: SSRI/SNRIs , difficulty has been demonstrated in multiple trials clinical response is more rapid (days) than typical response to SSRI for depression (weeks), they are equally effective in natural versus surgical menopause, they have similar modest benefit for hot flashes; Citalopram 10 mg per day is 1 of the 1st choice option. Will follow-up in 60 days and today the dose if needed and others any potential Side effects. All questions answered, the patient verbalized understanding Orders: Orders Bacterial Vaginosis Panel Today N76.0 - Acute vaginitis Medications: New citalopram 10 mg PO DAILY 60 tabs 0RF terconazole 0.8% 1 appful vaginal BEDTIME 20 grams 0RF 3 days metronidazole 500 mg PO BID 14 tabs 0RF 7 days Coding Level of Care Code Est Pt Level 3 (32979) Diagnoses Vulvovaginitis N76.0 Hot flashes R23.2
--- OUTSIDE RECORDS SUMMARY | 2025-03-29 12:50 | XMS_ITS | Encounter Summary ---
Author Organization [facility] Address [address] [place] [address] [place] [address] Phone Care Team Providers Care Electrocardiograph Technician Name Role Phone Jed Ricardo MD Primary Care Provider Encounter Details Date Type Department Care Team (Late st Contact Info) Description 01/16/2024 Procedure Pass [facility] [address] [place] [address] Social History Tobacco Use Types Packs/Day Years [...] with a working camera? Not on file Comments No Sex and Gender Information Value Date Recorded Sex Assigned at Not on file Legal Sex Female 11:47 AM EDT Gender Identity Not on file Sexual Orientation Not on file documented as of this encounter Plan of Treatment Not on file documented as of this encounter Visit Diagnoses Not on filedocumented in this encounter Care Teams Electrocardiograph Technician Relationship Specialty Start Date End Date Jed Ricardo MD [address] [place] [address] [place] [address] PCP - General Internal Medicine 11/07/21 documented as of this encounter Additional Source Comments The information contained in this document represents components of the legal health record. It is not the complete legal health record.[facility]
== END 2025-03-29 12:33 | disposition home or self-care (01) ==
LOC: HO.HWS 12:03
PROVIDERS: PCP Internal Medicine; Visit Provider Obstetrics & Gynecology
DX: N76.0 Acute vaginitis (principal); R23.2 Flushing
CPT/HCPCS: 99213

== ENCOUNTER 2025-04-11 15:51 | Outpatient (AMB) | payer OTHER, SELFPAY ==
--- NOTE | 2025-04-11 15:53 | MHC.OFFVIS ---
Intake Visit Reasons: Medication reaction Allergies Sulfa (Sulfonamide Antibiotics) Allergy (Intermediate, Verified 03/29/25 12:06) hives sulfamethoxazole (From BACTRIM) Allergy (Intermediate, Verified 03/29/25 12:06) HIVES trimethoprim (From BACTRIM) Allergy (Intermediate, Verified 03/29/25 12:06) HIVES erythromycin base Allergy (Unknown, Verified 03/29/25 12:06) Unknown Seasonal Allergies Allergy (Unknown, Verified 03/29/25 12:06) Unknown codeine Adverse Reaction (Severe, Verified 03/29/25 12:06) severe GI upset oxycodone (Percocet) Adverse Reaction (Intermediate, Verified 03/29/25 12:06) Nausea HPI Comments Details: The patient is scheduled tele health visit as follow-up regarding citalopram treatment for hot flashes. The patient developed irritability and could not tolerate the medication and discontinued it. Has been managing hot flashes conservatively by avoiding alcohol on carbs and other lifestyle modifications. [facility] Medical History Hx of renal calculi Heartburn Postmenopausal bleeding Diverticulosis Thyroid nodule Migraine with aura Surgical History (Updated 03/29/25 @ 12:26 by Mark Ashley MD) H/O total hysterectomy with bilateral salpingo-oophorectomy (BSO) Hx of wisdom tooth extraction Hx of colonoscopy History of left breast biopsy History of cholecystectomy (~09/2012) Family History Father History of melanoma Heart disease Paternal Grandmother History of colon cancer, Onset Age: 90 Mother Emphysema of lung Social History Household Members: None Housing: House Alcohol intake: current Alcohol intake frequency: holidays/special occasions only Patient Tobacco Use Status: Never used Tobacco service: No Current occupational status: employed 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 orientation: Straight/Heterosexual Gender identity: Female Female Reproductive History Menstrual Age of Menarche: 13 Review of Systems Const All systems reviewed & are unremarkable except as noted in HPI and below Reports as per HPI and Reports no additional complaints GI Reports no additional complaints Reports no additional complaints Telehealth Telehealth Telehealth Platform: Telephone Location of provider rendering services: practice address Location of patient: address on file Patient Identification confirmed using: Name, : Yes Telehealth method: video Patient verbally consented to treatment: Yes Patient verbally consented to billing insurance company: Yes Patient informed of any privacy concerns related to visit: Yes Minutes spent on Phone/Video with Pt.: 8 Assessment & Plan Assessment & Plan (1) Hot flashes: Code(s): R23.2 - [place] Category: Medical Plan: Discussed with the patient the other medical options including paroxetine, Effexor,, Peptamen other. The patient would like to continue lifestyle modification for the time being if symptoms get worse or become intolerable will attempt a trial of 1 of the above options. All questions answered, the patient verbalized understanding. I spent a total of 20 minutes reviewing the chart, talking to the patient via video and documenting in the medical record. Coding Level of Care Code Tele Est Pt Level 3 (27572) Diagnoses Hot flashes R23.2
--- OUTSIDE RECORDS SUMMARY | 2025-04-11 16:14 | XMS_ITS | Clinical Summary ---
Author Organization [facility] Address [address] [place] [address] Care Team Providers Care Tank Builder And Erector Name Role Phone Pcp, No Primary Care Provider [phone] Allergies Active Allergy Reactions Criticality Noted Date Comments Sulfamethoxazole-Trimethopr im 08/21/2022 Oxycodone 08/21/2022 [place] Pollen-Short Ragweed Itching 03/01/2022 Other reaction(s): Sneezing [...] yrs or above (or HM Modifier)([facility]) 1989 Hepatitis C Virus Infection in Adolescents and Adults: Screening (or Modifier) ([facility]) 1989 [facility] Screening Reminder: Dasha muhammad for all adults ([facility]) 1989 Tobacco Smoking Cessation: i n Adults excluding Women: Behavioral and Pharmacotherapy Interventions ([facility]) 1989 DTaP/Tdap/Td Vaccines ([facility]) (1 - Tdap) 1990 Cervical Cancer Screenin 1-65 yrs of age (or Modifier) 1992 Cervical Cancer Screening: P ap every 3 yrs pts age 21-65 1992 Cervical Cancer: Pap Screeni ng with Modifier timing ([facility]) 1992 Cervical Cancer: hrHPV alone or with cotesting Pap for Pts 30-65yrs screening every 5yrs ([facility]) 1992 Colorectal Cancer Screening 45 -75 Yrs (or HM Modifier) 2016 Colorectal Cancer: FLEXIBLE SIGMOIDOSCOPY Screening every 5 yrs 2016 Colorectal Cancer: Fecal Imm unochemical Test (FIT) Annually [facility] 2016 Colorectal Cancer: High-sens itivity gFOBT Screening Annually [facility] 2016 Colorectal Cancer: Stool Col oguard Screening every 3 yrs 2016 Colorectal Cancer:CT Colonog lupillo Screening every 5 yrs 2016 Breast Cancer: Screening Dasha muhammad age 50-74 yrs (or HM Modifier)([facility]) 2021 Pneumococcal Vaccination Scr eening: Patients 50+ yrs of age ([facility]) (1 of 1 - PCV) 2021 Zoster/Shingles Vaccine Seri es Screening: Adults aged 18+ yrs (or HM Modifiers)([facility]) (1 of 2) 2021 COVID-19 Vaccine Screening: Initial Series and Booster Status ([facility]) ( - 2023- season) 2024 Flu Vaccination: Yearly for ages 18mos through 64 years (or Modifier)([facility]) 03/25/2025 06/11/2023 Medical Devices Not on file Insurance [facility] Care Teams Tank Builder And Erector Relationship Specialty Start Date End Date Pcp, No PCP - General Family Medicine 08/21/22
--- OUTSIDE RECORDS SUMMARY | 2025-04-11 16:14 | XMS_ITS | Encounter Summary ---
Author Organization [facility] Address [address] [place] [address] [place] [address] Phone Care Team Providers Care Pole Lift Operator Name Role Phone Jed Ricardo MD Primary Care Provider Encounter Details Date Type Department Care Team (Late st Contact Info) Description 01/16/2024 Procedure Pass [facility] [address] [place] [address] Social History Tobacco Use Types Packs/Day Years [...] on filedocumented in this encounter Care Teams Pole Lift Operator Relationship Specialty Start Date End Date Jed Ricardo MD [address] [place] [address] [place] [address] PCP - General Internal Medicine 11/07/21 documented as of this encounter Additional Source Comments The information contained in this document represents components of the legal health record. It is not the complete legal health record.[facility]
== END 2025-04-12 07:25 | disposition home or self-care (01) ==
LOC: HO.HWS 15:51
PROVIDERS: PCP Internal Medicine; Visit Provider Obstetrics & Gynecology
DX: R23.2 Flushing (principal)
CPT/HCPCS: 99213

== ENCOUNTER → 2025-06-20 13:31 | Outpatient (AMB) | payer OTHER, SELFPAY ==
--- NOTE | 2025-06-20 13:36 | MHC.PC.OV ---
Vital Signs 06/20/25 13:42 Height 5 ft 3.5 in Weight 51.256 kg BMI 19.7 BP 100/62 Blood Pressure Location Lt brachial Position Sitting Respiration 18 Pulse 77 Pulse Source Pulse Oximeter Temp 98.2 F Temp Source Temporal Artery Scan Pulse Oximetry (%) 98 Oxygen Delivery Method Room Air Intake Visit Reasons: Physical - [place] pt Rural Route Mail Carrier Required: No Accompanied by: Self / Same As Patient Allergies Sulfa (Sulfonamide Antibiotics) Allergy (Intermediate, Verified 06/20/25 13:36) hives sulfamethoxazole (From BACTRIM) Allergy (Intermediate, Verified 06/20/25 13:36) HIVES trimethoprim (From BACTRIM) Allergy (Intermediate, Verified 06/20/25 13:36) HIVES erythromycin base Allergy (Unknown, Verified 06/20/25 13:36) Unknown Seasonal Allergies Allergy (Unknown, Verified 06/20/25 13:36) Unknown codeine Adverse Reaction (Severe, Verified 06/20/25 13:36) severe GI upset oxycodone (Percocet) Adverse Reaction (Intermediate, Verified 06/20/25 13:36) Nausea Medication List - Last Reconciled 06/20/25 by FORD Penny buspirone 10 mg PO BID multivitamin 1 tab PO DAILY sennosides (senna) 8.6 mg PO DAILY PRN Tobacco use date assessed: 06/20/25 Dental Screening Dental Screen Date: 06/20/25 Did you have a dental visit in the last 12 months?: Yes Did you have a dental problem in the last 6 months where you did not have access to dental care?: No Was dental information given to patient?: Patient has dentist HPI HPI Comments History of Present Illness Details 55-year-old female with history of dysmenorrhea, thyroid nodules, essential tremor presenting to the office today for management of chronic conditions and to establish care. She is a former patient of Dr. Ricardo, last seen for annual physical in 09/2024. She is s/p total hysterectomy 12/2024-since then has had significant anxiety as she was unable to tolerate hormone replacement. She had had an endometrial polyp and dysmenorrhea. She does continue to get sweats/chills particularly at nighttime. She also reports intermittent palpitations. No depression or SI/HI. Trialed citalopram at the recommendation of her communications station manager. Was unable to tolerate this. Reports she was ?crawling out of her skin. She also recently went through a break up which has affected her anxiety somewhat though she feels like she is managing this overall and feels symptoms have improved slightly. She does still have issues with rumination Thyroid nodules-follows with [facility] endocrinology every 2 years for surveillance Essential tremor-worsens with stress and anxiety Concerns: Anxiety as above Health maintenance: Last colonoscopy 03/2023 with serrated lesion/polyp. Ten year follow-up advised. Dr. De Anda Follows annually with communications station manager. Last Pap smear 09/2024. Negative for intraepithelial lesion or malignancy Last mammogram 11/2024, negative for malignancy. One year follow-up advised ROS: see hpi EXAM: Constitutional - Awake and Alert, No apparent distress Eyes - PERRLA, EOMI. Anicteric Cardiovascular - S1S2, RRR, No edema Respiratory - Normal lung expansion, Normal respiratory effort, No respiratory distress, CTA bilaterally Extremities - no calf tenderness bilaterally, no swelling Skin - Warm/Dry, no concerning lesions Neurological - Alert & oriented x3 Psychological - Appropriate affect PFSH Medical History (Updated 06/20/25 @ 14:20 by FORD Penny) Essential tremor Hx of renal calculi Heartburn Postmenopausal bleeding Diverticulosis Thyroid nodule Migraine with aura Surgical History (Updated 03/29/25 @ 12:26 by Mark Ashley MD) H/O total hysterectomy with bilateral salpingo-oophorectomy (BSO) Hx of wisdom tooth extraction Hx of colonoscopy History of left breast biopsy History of cholecystectomy (~09/2012) Family History Father History of melanoma Heart disease Paternal Grandmother History of colon cancer, Onset Age: 90 Mother Emphysema of lung Social History Household Members: None Housing: House Alcohol intake: current Alcohol intake frequency: holidays/special occasions only Patient Tobacco Use Status: Never used Tobacco e-Cigarette/Vaping Use: Never Used Second Hand Smoke Exposure: Yes service: No Current occupational status: employed 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 How often do you have a drink containing alcohol?: Monthly or less 2. How many drinks containing alcohol do you have on a typical day when you are drinking?: 1 or 2 Total Score: 1 Physical exam (Primary Care) Vital Signs: Last Vital Signs Temp 98.2 F 06/20/25 13:42 Pulse 77 06/20/25 13:42 Resp 18 06/20/25 13:42 BP 100/62 06/20/25 13:42 Pulse Ox 98 06/20/25 13:42 Oxygen Delivery Method Room Air 06/20/25 13:42 BMI result Body Mass Index 19.7 Tobacco/Smoking Status: Tobacco use Status Tobacco use date assessed 06/20/25 06/20/25 13:44 Patient Tobacco Use Status Never used Tobacco 06/20/25 13:44 e-Cigarette/Vaping Use Never Used 06/20/25 13:44 Coding Level of Care Code New Pt Level 4 (47152) Complex EM visit Add On G2211 Diagnoses Anxiety F41.9 Postmenopausal symptoms N95.9 Essential tremor G25.0 Migraine with aura G43.109 Assessment & Plan Assessment & Plan (1) Anxiety: Code(s): F41.9 - Anxiety disorder, unspecified Category: Medical Plan: Trial of BuSpar 10 mg twice daily. Positive coping mechanisms. Contact the office for any worsening symptoms or if need for increased dose (2) Postmenopausal symptoms: Code(s): N95.9 - Unspecified menopausal and perimenopausal disorder Category: Medical Plan: As above. Can also trial black cohosh (3) Essential tremor: Code(s): G25.0 - Essential tremor Category: Medical Plan: Stable. Stress management (4) Migraine with aura: Code(s): G43.109 - Migraine with aura, not intractable, without status migrainosus Category: Medical Plan: Near resolved following hysterectomy. Monitor for symptoms Plan Follow-up in 6 months for annual physical exam Orders: Orders Complete Blood Count Auto Diff Today Z00.00 - Encounter for general adult medical examination without abnormal findings Lipid Panel Today Z00.00 - Encounter for general adult medical examination without abnormal findings Liver Panel Today Z00.00 - Encounter for general adult medical examination without abnormal findings Basic Metabolic Panel Today Z00.00 - Encounter for general adult medical examination without abnormal findings TSH reflex Free T4 Today Z00.00 - Encounter for general adult medical examination without abnormal findings Vitamin D 25-OH Total Today Z00.00 - Encounter for general adult medical examination without abnormal findings Hemoglobin A1c Today Z13.1 - Encounter for screening for diabetes mellitus Medications: New buspirone Take 1/2 tab twice daily x 1 week, then increase to 1 tab twice daily 10 mg PO BID 180 tabs 1RF
[2025-06-20 13:42] VITALS: BP 100/62; PULSE 77; RESP 18; TEMP 36.8; O2SAT 98; BMI 19.7
--- OUTSIDE RECORDS SUMMARY | 2025-06-20 17:11 | XMS_ITS | Encounter Summary ---
Author Organization [facility] Address [address] [place] [address] [place] [address] Phone Care Team Providers Care Supervisor Instrument Mechanics Name Role Phone Jed Ricardo MD Primary Care Provider Encounter Details Date Type Department Care Team (Late st Contact Info) Description 01/16/2024 Procedure Pass [facility] [address] [place] [address] Social History Tobacco Use Types Packs/Day Years [...] on filedocumented in this encounter Care Teams Supervisor Instrument Mechanics Relationship Specialty Start Date End Date Jed Ricardo MD [address] [place] [address] [place] [address] PCP - General Internal Medicine 11/07/21 documented as of this encounter Additional Source Comments The information contained in this document represents components of the legal health record. It is not the complete legal health record.[facility]
--- OUTSIDE RECORDS SUMMARY | 2025-06-20 17:12 | XMS_ITS | Clinical Summary ---
Author Organization [facility] Address [address] [address] Care Team Providers Care Speech Language Specialist Name Role Phone Pcp, No Primary Care Provider [phone] Allergies Active Allergy Reactions Criticality Noted Date Comments Sulfamethoxazole-Trimethopr im 08/21/2022 Oxycodone 08/21/2022 [place] Pollen-Short Ragweed Itching 03/01/2022 Other reaction(s): Sneezing Medications meclizine (ANTIVERT) 25 mg tablet TAKE 1 TABLET ORALLY 3 TIMES A DAY NEEDED FOR VERTIGO FOR 1 WEEK 10/05/2022 Active predniSONE (DELTASONE) 20 MG tablet TAKE 1 TABLET ORALLY DAILY FOR 5 DAYS 10/05/2022 Active Immunizations Immunization Administration Dates Next Due Flucelvax Trivalent PFS [...] Adults 18 yrs or above (or HM Modifier)([facility]) 1989 Hepatitis C Virus Infection in Adolescents and Adults: Screening (or Modifier) ([facility]) 1989 [facility] Screening Reminder: Dasha muhammad for all adults ([facility]) 1989 Tobacco Smoking Cessation: i n Adults excluding Women: Behavioral and Pharmacotherapy Interventions ([facility]) 1989 DTaP/Tdap/Td Vaccines ([facility]) (1 - Tdap) 1990 Cervical Cancer Screenin 1-65 yrs of age (or Modifier) 1992 Cervical Cancer Screening: P ap every 3 yrs pts age 21-65 1992 Cervical Cancer: Pap Screeni ng with Modifier timing ([facility]) 1992 Cervical Cancer: hrHPV alone or with cotesting Pap for Pts 30-65yrs screening every 5yrs ([facility]) 1992 Colorectal Cancer Screening 45 -75 Yrs (or HM Modifier) 2016 Colorectal Cancer: FLEXIBLE SIGMOIDOSCOPY Screening every 5 yrs 2016 Colorectal Cancer: Fecal Imm unochemical Test (FIT) Annually [facility] 2016 Colorectal Cancer: High-sens itivity gFOBT Screening Annually [facility] 2016 Colorectal Cancer: Stool Col oguard Screening every 3 yrs 2016 Colorectal Cancer:CT Colonog lupillo Screening every 5 yrs 2016 Breast Cancer: Screening Dasha muhammad age 50-74 yrs (or HM Modifier)([facility]) 2021 Pneumococcal Vaccination Scr eening: Patients 50+ yrs of age ([facility]) (1 of 1 - PCV) 2021 Zoster/Shingles Vaccine Seri es Screening: Adults aged 18+ yrs (or HM Modifiers)([facility]) (1 of 2) 2021 Flu Vaccination: Yearly for ages 18mos through 64 years (or Modifier)([facility]) 03/25/2025 06/11/2023 COVID-19 Vaccine Screening: Initial Series and Booster Status ([facility]) ( - 2023- season) 2025 Medical Devices Not on file Insurance [facility] Care Teams Speech Language Specialist Relationship Specialty Start Date End Date Pcp, No PCP - General Family Medicine 08/21/22
--- OUTSIDE RECORDS SUMMARY | 2025-06-20 17:12 | XMS_ITS | Encounter Summary ---
Author Organization [facility] Address [address] [place] [address] Phone Care Team Providers Care Entry Processor Name Role Phone Jed Ricardo MD Primary Care Provider Encounter Details Date Type Department Care Team (Late st Contact Info) Description 03/05/2022 Procedure Pass [facility] Interventional [facility]iology [address] [place] [address] Social History Tobacco Use Types Packs/Day Years Used Date Smoking Tobacco: Never Smokeless Tobacco: Never Alcohol Use Standard Drinks/Week Comments Not Currently 0 (1 standard drink = 0.6 oz pur e alcohol) rarely Comments Unknown Sex and Gender Information Value Date Recorded Sex Assigned at Not on file Legal Sex Female 11:47 AM EDT Gender Identity Not on file Sexual Orientation Not on file documented as of this encounter Plan of Treatment Not on file documented as of this encounter Visit Diagnoses Not on filedocumented in this encounter Care Teams Entry Processor Relationship Specialty Start Date End Date Jed Ricardo MD [address] [place] [address] [place] [address] PCP - General Internal Medicine 11/07/21 documented as of this encounter Additional Source Comments The information contained in this document represents components of the legal health record. It is not the complete legal health record.[facility]
--- OUTSIDE RECORDS SUMMARY | 2025-06-20 17:12 | XMS_ITS | Encounter Summary ---
Author Organization [facility] Address [address] [facility] [address] [place] [phone] Phone Care Team Providers Care Turbo Operator Name Role Phone Jed Ricardo MD Primary Care Provider Encounter Details Date Type Department Care Team (Late st Contact Info) Description 03/06/2022 Procedure Pass [facility] [address] [place] [address] Social History Tobacco Use Types Packs/Day Years [...] on filedocumented in this encounter Care Teams Turbo Operator Relationship Specialty Start Date End Date Jed Ricardo MD [address] [place] [address] [place] [address] PCP - General Internal Medicine 11/07/21 documented as of this encounter Additional Source Comments The information contained in this document represents components of the legal health record. It is not the complete legal health record.[facility]
--- OUTSIDE RECORDS SUMMARY | 2025-06-20 17:12 | XMS_ITS | Clinical Summary ---
Author Organization [facility] Address [address] [address] Phone Care Team Providers Care Hemstitching Machine Operator Name Role Phone Jed Ricardo MD Primary Care Provider Allergies Active Allergy Reactions Criticality Noted Date Comments Sulfamethoxazole-Trimethoprim Rash Low 2021 Oxycodone 08/21/2022 [place] Pollen-Short Ragweed Itching,Sneezing 03/2022 Medications No known [...] 57 11/19/2024 9:40 AM EDT Temperature 36.6 C (97.9 F) 02/24/2024 8:23 AM EDT Respiratory Rate 12 01/16/2024 8:46 AM EDT [...] (1 of 2) 2021 INFLUENZA VACCINE (#1) 2025 COVID-19 VACCINE (1 - 2024-2 6 season) 2025 RSV VACCINE (1 - 1-dose 75+ series) 2046 SMOKING STATUS SCREENING (On ce After 26 Yrs) Completed 02/24/2024 HEPATITIS A VACCINES Aged Out No long er eligible based on patient's age to complete this topic HIB VACCINES Aged Out No longer eligi ble based on patient's age to complete this topic MENINGOCOCCAL VACCINES (ACWY) Aged Out No longer eligible based on patient's age to complete this topic MENINGOCOCCAL VACCINES (B) Aged Out N o longer eligible based on patient's age to complete this topic Medical Devices Not on file Insurance [employer] HMO POS EPO [facility] E[facility] EPO [facility] EPO Care Teams Hemstitching Machine Operator Relationship Specialty Start Date End Date Jed Ricardo MD [address] [place] [address] [place] [address] PCP - General Internal Medicine 11/07/21 Additional Source Comments The information contained in this document represents components of the legal health record. It is not the complete legal health record.[facility]
== END ==
PROVIDERS: PCP Physician Assistant; Visit Provider Physician Assistant
DX: F41.9 Anxiety disorder, unspecified (principal); N95.9 Unspecified menopausal and perimenopausal disorder; G25.0 Essential tremor; G43.109 Migraine with aura, not intractable, without status migrainosus

== ENCOUNTER 2025-06-21 06:50 | Outpatient (REF) | payer OTHER, SELFPAY ==
--- OUTSIDE RECORDS SUMMARY | 2025-06-21 06:54 | XMS_ITS | Encounter Summary ---
Author Organization [facility] Address [address] [facility] [address] [place] [address] Phone Care Team Providers Care Poultry Helper Name Role Phone Jed Ricardo MD Primary Care Provider Encounter Details Date Type Department Care Team (Late st Contact Info) Description 03/06/2022 Procedure Pass [facility] [address] [place] [address] Social History Tobacco Use Types Packs/Day Years [...] on filedocumented in this encounter Care Teams Poultry Helper Relationship Specialty Start Date End Date Jed Ricardo MD [address] [place] [address] [place] [address] PCP - General Internal Medicine 11/07/21 documented as of this encounter Additional Source Comments The information contained in this document represents components of the legal health record. It is not the complete legal health record.[facility]
--- OUTSIDE RECORDS SUMMARY | 2025-06-21 06:54 | XMS_ITS | Encounter Summary ---
Author Organization [facility] Address [address] [place] [address] [place] [address] Phone Care Team Providers Care Ash Kier Boiler Name Role Phone Jed Ricardo MD Primary Care Provider Encounter Details Date Type Department Care Team (Late st Contact Info) Description 01/16/2024 Procedure Pass [facility] [address] [place] [address] Social History Tobacco Use Types Packs/Day Years [...] on filedocumented in this encounter Care Teams Ash Kier Boiler Relationship Specialty Start Date End Date Jed Ricardo MD [address] [place] [address] [place] [address] PCP - General Internal Medicine 11/07/21 documented as of this encounter Additional Source Comments The information contained in this document represents components of the legal health record. It is not the complete legal health record.[facility]
--- OUTSIDE RECORDS SUMMARY | 2025-06-21 06:54 | XMS_ITS | Clinical Summary ---
Author Organization [facility] Address [address] [address] Phone Care Team Providers Care Ecological Technical Officer Name Role Phone Jed Riacrdo MD Primary Care Provider Allergies Active Allergy Reactions Criticality Noted Date Comments Sulfamethoxazole-Trimethoprim Rash Low 2021 Oxycodone 08/21/2022 [place] Pollen-Short Ragweed Itching,Sneezing 03/2022 Medications No known [...] on file Insurance [employer] HMO POS EPO [facility] E[facility] EPO [facility] EPO Care Teams Ecological Technical Officer Relationship Specialty Start Date End Date Jed Ricardo MD [address] [place] [address] [place] [address] PCP - General Internal Medicine 11/07/21 Additional Source Comments The information contained in this document represents components of the legal health record. It is not the complete legal health record.[facility]
--- OUTSIDE RECORDS SUMMARY | 2025-06-21 06:54 | XMS_ITS | Encounter Summary ---
Author Organization [facility] Address [address] [facility] [address] [place] [phone] Phone Care Team Providers Care Fabrication Manager Name Role Phone Jed Ricardo MD Primary Care Provider Encounter Details Date Type Department Care Team (Late st Contact Info) Description 03/05/2022 Procedure Pass [facility] [address] [place] [address] Social History Tobacco Use Types Packs/Day Years [...] on filedocumented in this encounter Care Teams Fabrication Manager Relationship Specialty Start Date End Date Jed Ricardo MD [address] [place] [address] [place] [address] PCP - General Internal Medicine 11/07/21 documented as of this encounter Additional Source Comments The information contained in this document represents components of the legal health record. It is not the complete legal health record.[facility]
[2025-06-21 06:59] LABS: MANUAL DIFF FLAG NO
[2025-06-21 07:43] LABS: Hematocrit 42.8 % (37.0-47.0); Hemoglobin 14.0 g/dl (12.0-16.0); Imm Gran Abs Auto 0.01 X10*3/uL (0.00-0.03); Imm Gran Pct Auto 0.2 % (0.0-0.4); Lymphocytes Absolute Auto 1.3 X10*3/uL (1.2-4.9); Mean Corpuscular HGB Conc 32.7 g/dl (31.0-35.0); Mean Corpuscular Hemoglobin 29.9 pg (27.0-33.0); Mean Corpuscular Volume 91.3 fL (80.0-98.0); NRBC Abs Auto 0.000 X10*3/uL (0.0-0.012); NRBC Pct Auto 0.0 /100WBC (0.0-0.2); Platelet Count 317 X10*3/uL (160-400); Red Blood Count 4.69 X10*6/uL (4.20-5.50); White Blood Count 5.2 X10*3/uL (4.8-10.8)
[2025-06-21 08:25] LABS: Alanine Aminotransferase 13 U/L (0-31); Albumin Level 4.3 g/dL (3.5-5.0); Alkaline Phosphatase 66 U/L (39-117); Anion Gap 12 (12-20); Aspartate Amino Transferase 24 U/L (5-31); Blood Urea Nitrogen 10 mg/dL (9-16); Calcium 9.0 mg/dL (8.4-10.2); Carbon Dioxide 28 mmol/L (22-29); Chloride 109 mmol/L (96-108); Cholesterol 174 mg/dL (<200); Estimated Glomerular Filt Rate > 60; HDL Cholesterol 67 mg/dL (>40); Potassium 4.1 mmol/L (3.3-5.1); Sodium 145 mmol/L (135-145); Total Protein 6.8 g/dL (6.5-8.0); Triglycerides 54 mg/dL (<150)
== END 2025-06-21 06:51 | disposition home or self-care (01) ==
LOC: HO.LAB 06:50
PROVIDERS: PCP Physician Assistant; Visit Provider Physician Assistant
DX: Z00.00 Encounter for general adult medical examination without abnormal findings (principal); Z13.1 Encounter for screening for diabetes mellitus; Z13.0 Encounter for screening for diseases of the blood and blood-forming organs and certain disorders involving the immune mechanism; Z13.29 Encounter for screening for other suspected endocrine disorder; Z13.6 Encounter for screening for cardiovascular disorders
CPT/HCPCS: 36415; 80048; 80061; 80076; 82306; 83036; 84443; 85025